=== PATIENT | female | born 1940 | race Caucasian/White ===

== ENCOUNTER → 2016-09-06 | Outpatient (CLI) | payer MEDICARE, OTHER ==
[~2016-09-06] MED LIST: /CIPR75TA OR; ALLO100T OR; ASPI81TA83 OR; ATEN50TA2 OR; FLAG500T OR; GASTROGRAFIN SOLUTION 30ML (Q9963) As Ordered ONE; GLUC500T OR; LISI20TA5 OR; NEUR100C OR; NEXI20CA OR; SIMV20TA2 OR
--- NOTE | 2016-09-06 12:46 | REP ---
CT STUDY OF THE CHEST WITHOUT CONTRAST: HISTORY: Stage IV chronic kidney disease, coronary artery disease status post abdominal aneurysm repair. Found to have a 5.2 cm right upper lobe mass and hilar soft tissue fullness. Comparison is made with chest x-ray from February 17, 2015. CT FINDINGS: There is a small amount of right pleural fluid. There are emphysematous changes bilaterally in the upper lobes and lower lobes. There is no evidence of mass or infiltrate on the left. On the right, the study confirms a large predominantly solid peripheral pleural-based area of pulmonary parenchymal opacification in the right upper lobe anterolaterally. This measures 5.3 x 3.0 x 4.2 cm. There are air bronchograms within it. There is nodular pleural thickening adjacent to the inferior margin of the lesion and there are bullous airspaces posteriorly adjacent to the lesion. Anteriorly in the right upper lobe region there are some subpleural nodules consistent with metastatic foci. These measure 1.6, 2.8, and 1.7 cm. The 1.7 cm lesion may be an internal mammary wei focus as it is along the internal mammary artery and vein. There is also a pleural-based nodule more superiorly measuring 1.6 cm. There is no evidence of skeletal metastatic site. There is another lung mass in the perihilar region of the right upper lobe more centrally. This measures 1.7 cm. It has a bilobed appearance with a somewhat lobulated linear morphology suggesting endobronchial malignancy. There is right hilar fullness consistent with right hilar lymphadenopathy. There is also mediastinal lymphadenopathy with a pretracheal enlarged lymph node measuring 2.7 x 2.8 x 4.0 cm. There are two or three other left mediastinal lymph nodes. No supraclavicular adenopathy or axillary adenopathy is appreciated. No adrenal mass is seen. No hepatic mass lesion is observed. Considerable atrophy of the right kidney is seen. An aortic stent graft is seen at the bottom of the imaging field of view. IMPRESSION: Findings most compatible with regionally advanced bronchogenic malignancy with right upper lobe masses, both peripherally and centrally as well as right hilar and mediastinal lymphadenopathy. There are multiple pleural based masses and several subpleural masses are seen in the right chest as well. Small right effusion. Signed by Adryan Alexis MD 09/06/2016 01:20 P
--- NOTE | 2016-09-06 13:46 | REP ---
CT ABDOMEN AND PELVIS WITHOUT WALL IV BUT WITH ORAL CONTRAST: HISTORY: Right lung mass. The patient gives a history of aortic stent graft repair of abdominal aortic aneurysm. CT FINDINGS: Digital herbarium worker radiograph demonstrates an aortobiiliac stent graft and a normal bowel gas pattern. There is a small quantity of right pleural fluid as described in the chest CT report. No focal liver or spleen lesion is seen. No adrenal mass is observed. No gallbladder or pancreatic abnormality is seen. There is marked renal cortical atrophy affecting the right kidney. There is minimal fullness of the intrarenal collecting system of the left kidney. No renal mass is seen. No intrarenal calculus is seen. There is an aortobiiliac stent graft is seen within a bilobed abdominal aortic aneurysm. The largest portion of the aneurysm measures 4.1 cm. There are left renal artery and superior mesenteric artery stents in place as well. There is a borderline size pericaval lymph node measuring 1.6 x 1.0 cm. There is a right periaortic retrocaval lymph node measuring 0.7 cm in short axis dimension. No other evidence of adenopathy is seen. No uterine or adnexal pathology is observed. There is left colonic diverticulosis. These no abdominal wall defect is seen. No bony destructive lesion is observed. IMPRESSION: Small right pleural effusion. Equivocal pericaval lymph node in the upper abdomen. Marked right renal atrophy. Aortobiiliac stent graft for abdominal aortic aneurysm. Left colonic diverticulosis. Signed by Adryan Alexis MD 09/06/2016 02:07 P
== END ==
LOC: M RAD 09:40
PROVIDERS: ATTEND Internal Medicine
DX: R91.8 Other nonspecific abnormal finding of lung field (principal)
CPT/HCPCS: 71250; 74176; Q9963

== ENCOUNTER → 2016-09-26 | Outpatient (CLI) | payer MEDICARE, OTHER ==
[~2016-09-26] MED LIST changes: +ACETAMINOPHEN 325 MG TAB As Ordered ONE; +ASPI1TAB PO; +ATEN25TA PO; +ATOR40TA PO; +CARV3.12 PO; +GABA-279 PO; -GASTROGRAFIN SOLUTION 30ML (Q9963) As Ordered ONE; +HYDR-4266 PO; +HYDR25TAB PO; +LIDO5TD TOP; +LIDOCAINE 1% MDV 20ML VIAL As Ordered ONE; +NEXI20CA PO; +TRAM50TA2 PO; +VITMTA PO
--- NOTE | 2016-09-26 13:15 | REP ---
POSTBIOPSY CHEST: Single view of the chest is performed status post right lung biopsy. There is no pneumothorax. Pleural and parenchymal opacities persist in the right hemithorax. IMPRESSION: No pneumothorax status post right lung biopsy. Signed by Sony Tong MD 09/26/2016 02:20 P
--- NOTE | 2016-09-26 17:27 | REP ---
CT GUIDED RIGHT UPPER LOBE LUNG BIOPSY: The procedure was performed under the direct supervision of Dr. Tong. The patient has a history of multiple pleural based masses and several subpleural masses seen in the right chest seen on a previous CAT scan performed on 09/06/2016. The risks and benefits of the procedure were explained to the patient and informed consent was obtained. The largest mass in the right upper lobe was localized using CT guidance. The skin was prepped and draped in a sterile fashion. 1% Xylocaine was used as a local anesthetic. Using CT guidance a 19/20-gauge coaxial needle biopsy system was inserted and advanced into the lesion. 4 core biopsy samples were obtained and sent to the lab. The patient tolerated the procedure well and there were no immediate complications. After the appropriate amount of monitored convalescence the patient was discharged from the department. Reviewed by ROGERS Arroyo 09/27/2016 12:50 PEdited and Signed by Sony Tong MD 09/27/2016 03:28 P
== END | disposition home or self-care (01) ==
LOC: M RADPRO 09:10
PROVIDERS: ATTEND Internal Medicine Pulmonary Disease
DX: C34.11 Malignant neoplasm of upper lobe, right bronchus or lung (principal); Z79.899 Other long term (current) drug therapy; Z79.82 Long term (current) use of aspirin; Z87.891 Personal history of nicotine dependence

== ENCOUNTER 2016-09-30 09:03 | Observation (INO) | payer MEDICARE, OTHER ==
[~2016-09-30] VITALS: Ht 157.5 cm; Wt 58.0 kg
[~2016-09-30 09:03] MED LIST changes: -ACETAMINOPHEN 325 MG TAB As Ordered ONE; -ASPI1TAB PO; -ATEN25TA PO; -ATOR40TA PO; -CARV3.12 PO; -GABA-279 PO; -HYDR-4266 PO; -HYDR25TAB PO; -LIDO5TD TOP; -LIDOCAINE 1% MDV 20ML VIAL As Ordered ONE; -NEXI20CA PO; -TRAM50TA2 PO; -VITMTA PO
[2016-09-30] MEDS ORDERED: MORPHINE 2 MG/ML 1ML SYRINGE As Ordered ONE (09:40)
[2016-09-30] MEDS ORDERED: ONDANSETRON 4MG/2ML VIAL (J2405) As Ordered ONE ×2 (09:40→14:23)
[2016-09-30 09:45] LABS: BASO % 0.2 % (0.0-1.0); EOS % 0.4 % (0.0-3.0); LARGE UNSTAINED CELL # 0.1 K/mm3 (0.0-0.4); LARGE UNSTAINED CELL % 0.7 % (0.0-4.0); LYMPH # 0.3 K/mm3 (1.5-4.5); LYMPH % 3.6 % (24.0-44.0); MEAN CORPUSCULAR HEMOGLOBIN 30.1 pg (27.0-33.0); MEAN CORPUSCULAR HGB CONC 33.8 g/dl (32.0-36.5); MEAN CORPUSCULAR VOLUME 88.9 fl (80.0-96.0); MONO # 0.3 K/mm3 (0.0-0.8); MONO % 2.7 % (0.0-5.0); NEUTROPHILS # 8.6 K/mm3 (1.8-7.7); NEUTROPHILS % 92.3 % (36.0-66.0); PLATELET COUNT, AUTOMATED 200 k/mm3 (150-450); RED CELL DISTRIBUTION WIDTH 13.8 % (11.5-14.5); WHITE BLOOD COUNT 9.3 K/mm3 (4.0-10.0)
[2016-09-30 10:06] LABS: ALBUMIN/GLOBULIN RATIO 1.08 (1.00-1.93); BILIRUBIN,DIRECT 0.2 MG/DL (0.0-0.2); CALCIUM LEVEL 9.6 MG/DL (8.8-10.2); CREATININE FOR GFR 1.62 MG/DL (0.55-1.02); GLOMERULAR FILTRATION RATE 32.7 (>39); POTASSIUM SERUM 3.8 MEQ/L (3.5-5.1); TOTAL PROTEIN 7.7 GM/DL (6.4-8.2)
--- NOTE | 2016-09-30 10:18 | REP ---
CHEST, ONE VIEW: HISTORY: Chest pain. COMPARISON: 09/26/2016. A pleural based parenchymal density is present in the right upper lobe, unchanged compared to the previous study. A parenchymal density is present in the right hilar region, unchanged compared to the previous study. A diffuse increase in interstitial markings is present in the lungs consistent with chronic interstitial fibrosis. The heart is normal in size. The pulmonary vasculature is normal in appearance. IMPRESSION: There has been no change in size of the pleural and parenchymal densities in the right lung compared to the previous study. Signed by Aguila Byrd MD 09/30/2016 10:20 A
--- NOTE | 2016-09-30 15:12 | EDDOCDS ---
Nurse's Notes [facility] Name: Flory Womack Age: 76 yrs Sex: Female : 1940 Arrival Date: 09/30/2016 Time: 09:03 Bed 10 Private MD: Mirta Horner Diagnosis: Nausea and vomiting Presentation: 09/30 09:06 Presenting complaint: EMS states: not sleeping well last night, nauseated. hx of lung pml tumor and reports back pain. 09:11 Acute neurological deficits are not present. Mechanism of Injury: No Mechanism of pml Injury. Adult Sepsis Screening: The patient does not have new or worsening altered mentation. Patient's respiratory rate is less than 22. Systolic blood pressure is greater than 100. Patient has a qSOFA score of 0- Negative Sepsis Screen. Suicide/Homicide risk assessment- the patient denies having any suicidal and/or homicidal ideations and does not present with any other emotional, behavioral or mental health complaints. 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 Transition of care: patient was not received from another setting of care. 09:11 Acuity: RANJEET Level 3 pml 09:11 Method Of Arrival: Ambulance pml 09:17 Presenting complaint: Patient states: back pain and dry heaving all night. pml Triage Assessment: 09:25 General: Appears in no apparent distress, Behavior is appropriate for age, cooperative. pml Pain: Location: right scapular area and right subscapular area Pain currently is 6 out of 10 on a pain scale. The patient is triaged at the bedside. See Assessment in Nurses Notes section of ED record. Neurological: Level of Consciousness is awake, alert, Oriented to person, place, time. Cardiovascular: Capillary refill < 3 seconds. Respiratory: Airway is patent Respiratory effort is even, unlabored. Respiratory: Breath sounds are diminished in right upper lobe, left upper lobe and right middle lobe. GI: Abdomen is non- distended. Derm: Skin is pink, warm & dry. Musculoskeletal: Circulation, motion, and sensation intact Capillary refill < 3 seconds. Historical: - Allergies: no known allergies; - Home Meds: 1. Atenolol 12.5mg Oral 2 times per day 2. Nexium 20 mg Oral cpDR 1 cap once daily 3. Lipitor 40 mg Oral tab 1 tab once daily 4. aspirin 81 mg Oral TbEC 1 tab once daily 5. gabapentin 100 mg Oral tab 100 mg daily 6. multivitamin Oral cap 1 tablet daily 7. hydrochlorothiazide 25 mg Oral tab 1 tab once daily 8. hydralazine 10 mg Oral tab 1 tab 2 times per day 9. carvedilol 6.25 mg oral tab nightly - PMHx: Hypertension; GERD; High Cholesterol; right lung mass; Aneurysm, Abdominal; right kidney non functional; - Social history: Smoking status: Patient states former smoker of tobacco. No barriers to communication noted, The patient speaks fluent Macedonian, Speaks appropriately for age. - Family history: Not pertinent. - : The pt / caregiver states he / she is not on anticoagulants. Home medication list is obtained from the patient. - Exposure Risk Screening:: None identified. Screenin: Screening information is obtained from the patient. Fall risk: No risks identified. pml Assistance ADL's: requires no assistance with activities of daily living. Abuse/DV Screen: The patient / caregiver reports he/she is: not in a situation that causes fear, pain or injury. Nutritional screening: No deficits noted. Advance Directives: Currently, there is no health care proxy. home support is adequate. Assessment: : General: see triage note. pml 10:12 General: Appears in no apparent distress, Behavior is appropriate for age, cooperative. pml Pain: Location: right subscapular area and right scapular area Pain currently is 6 out of 10 on a pain scale. Neurological: Level of Consciousness is awake, alert, Oriented to person, place, time. Cardiovascular: Capillary refill < 3 seconds. Respiratory: Airway is patent Respiratory effort is even, unlabored. GI: Abdomen is non- distended. Derm: Skin is pink, warm & dry. 11:23 General: resting on stretcher, eyes closed, appears asleep, resps easy and unlabored, pml skin p/w/d. sinus rhythm on monitor . 12:32 General: Pt ambulatory in hallway to bathroom. . pml 12:46 General: Appears in no apparent distress, Behavior is appropriate for age, cooperative. pml General: Per MD Castro pt may take own tramdol as prescribed. Pain: Location: left low back. Neurological: Level of Consciousness is awake, alert, Oriented to person, place, time. Cardiovascular: Capillary refill < 3 seconds. Respiratory: Airway is patent Respiratory effort is even, unlabored. Derm: Skin is pink, warm & dry. 13:48 General: resting quietly on stretcher, family at bedside. resps easy and unlabored, pml skin p/w/d. sinus rhythm on monitor without ectopy. 15:08 General: Appears in no apparent distress, Behavior is appropriate for age, cooperative. pml Pain: Location: left low back and right subscapular area and right scapular area Pain currently is 1 out of 10 on a pain scale. Neurological: Level of Consciousness is awake, alert, Oriented to person, place, time. Cardiovascular: Capillary refill < 3 seconds. Respiratory: Airway is patent Respiratory effort is even, unlabored. GI: Abdomen is non- distended. Derm: Skin is pink, warm & dry. Vital Signs: 09:16 BP 137 / 65; Pulse 97; Resp 18; Temp 97.3(O); Pulse Ox 94% on R/A; Weight 54.43 kg (R); ct3 Height 5 ft. 2 in. (157.48 cm) (R); Pain 5/10; 09:27 Pulse 96 MON; Pulse Ox 93% ; pml 09:27 BP 133 / 66 (auto/); pml 09:42 Pulse 96 MON; Pulse Ox 93% ; pml 09:42 BP 136 / 63 (auto/); pml 09:57 Pulse 92 MON; Pulse Ox 95% ; pml 09:57 BP 129 / 59 (auto/); pml 10:12 Pulse 92 MON; Pulse Ox 89% ; pml 10:12 BP 138 / 64 (auto/); pml 10:27 Pulse 90 MON; Pulse Ox 92% ; pml 10:27 BP 136 / 71 (auto/); pml 10:42 Pulse 88 MON; Pulse Ox 92% ; pml 10:42 BP 128 / 58 (auto/); pml 10:57 Pulse 88 MON; Pulse Ox 91% ; pml 10:57 BP 126 / 60 (auto/); pml 11:12 Pulse 82 MON; Pulse Ox 90% ; pml 11:12 BP 131 / 63 (auto/); pml 11:27 BP 127 / 55 (auto/); pml 11:27 Pulse 84 MON; Pulse Ox 89% ; pml 11:42 BP 117 / 56 (auto/); pml 11:55 Pulse 84 MON; Pulse Ox 89% ; pml 11:57 BP 122 / 63 (auto/); pml 12:09 Pulse 84 MON; Pulse Ox 90% ; pml 12:12 BP 117 / 66 (auto/); pml 12:27 BP 135 / 69 (auto/); pml 12:27 Pulse 84 MON; Pulse Ox 90% ; pml 12:42 Pulse 90 MON; Pulse Ox 91% ; pml 12:42 BP 137 / 63 (auto/); pml 12:57 Pulse 84 MON; Pulse Ox 90% ; pml 12:57 BP 124 / 59 (auto/); pml 13:12 Pulse 82 MON; Pulse Ox 90% ; pml 13:12 BP 124 / 64 (auto/); pml 13:27 Pulse 80 MON; Pulse Ox 90% ; pml 13:27 BP 121 / 56 (auto/); pml 13:41 Pulse 80 MON; Pulse Ox 91% ; pml 13:42 BP 133 / 60 (auto/); pml 13:57 Pulse 80 MON; pml 13:57 BP 130 / 60 (auto/); pml 14:12 Pulse 82 MON; pml 14:12 BP 124 / 55 (auto/); pml 14:21 Pulse 84 MON; pml 14:22 BP 120 / 58 (auto/); pml 14:24 BP 120 / 58; Pulse 83; Resp 18; Temp 98.3(TE); Pulse Ox 94% on R/A; Pain 2/10; ct3 14:27 Pulse 84 MON; Pulse Ox 90% ; pml 14:27 BP 144 / 65 (auto/); pml 14:42 Pulse 76 MON; Pulse Ox 86% ; pml 14:42 BP 137 / 67 (auto/); pml 14:57 Pulse 78 MON; Pulse Ox 88% ; pml 14:57 BP 132 / 69 (auto/); pml 15:09 BP 114 / 58; Pulse 78; Resp 18; Temp 98.3; Pulse Ox 97% on R/A; Pain 1/10; pml 09:16 Body Mass Index 21.95 (54.43 kg, 157.48 cm) ct3 Vitals: 09:16 Log In Time N/A - ambulance arrival. ct3 ED Course: 09:04 Patient visited by Carlita Villegas, Divisional Human Resources Director. lbd 09:04 Mirta Horner is Private Physician. lbd 09:04 Patient moved to Waiting lbd 09:05 Priyanka Akers,PACO is Primary Nurse. lbd 09:05 Patient moved to 10 lbd 09:06 Laya Mireles RN is Primary Nurse. pml 09:10 Reny Castro MD is Attending Physician. fg 09:10 Patient visited by Reny Castro MD. fg 09:14 Triage Initiated pml 09:16 Patient has correct armband on for positive identification. Placed in gown. Bed in low ct3 position. Call light in reach. Side rails up X2. shelter monitor on. Pulse ox on. NIBP on. 09:17 Patient visited by Brianna Oconnell PCA. ct3 09:26 The patient / caregiver is instructed regarding the plan of care and ED course. pml 09:27 Patient visited by Laya Mireles RN. pml 09:44 Inserted peripheral IV: 20gauge IV in right antecubital area and blood collected. pml Patient tolerated the procedure well. 10:14 Patient visited by Laya Mireles RN. pml 10:20 [facility] Payment Agreement was scanned into [employer] and attached to record. lg 10:27 Chest, 1 View Returned. EDMS 11:02 Patient visited by Brianna Oconnell PCA. ct3 11:24 Patient visited by Laya Mireles RN. pml 12:03 Patient visited by Brianna Oconnell PCA. ct3 12:32 Patient visited by Laya Mireles RN. pml 12:42 Patient visited by Brianna Oconnell PCA. ct3 12:42 Assisted to bedside commode. ct3 12:47 Patient visited by Laya Mireles RN. pml 13:49 Patient visited by Laya Mireles RN. pml 14:24 Patient visited by Brianna Oconnell PCA. ct3 14:54 EKG done. (by ED staff). Reviewed by Reny Castro MD. ct3 15:02 Mirta Horner is Referral Physician. fg 15:02 Matt Raya is Referral Physician. fg 15:09 Discontinued lock intact, bleeding controlled, pressure dressing applied, No pml redness/swelling at site. No procedures done that require assistance. Administered Medications: :44 Drug: NS 0.9% 500 ml [sodium chloride 0.9 % injection solution] Route: IV; Rate: bolus; pml Site: right antecubital; 10:25 Follow up: IV Status: Completed infusion; IV Intake: 500ml pml 09:44 Drug: Ondansetron 4 mg [ondansetron HCl 2 mg/mL intravenous solution (2 mL)] Route: pml IVP; Site: right antecubital; 09:44 Drug: morphine 2 mg [morphine 2 mg/mL intravenous cartridge (1 mL)] Route: IVP; Site: pml right antecubital; 10:14 Follow up: Response: No significant change. pml 14:22 Drug: Ondansetron 4 mg [ondansetron HCl 2 mg/mL intravenous solution (2 mL)] Route: dy IVP; Site: right antecubital; Intake: 10:25 IV: 500.00ml; Total: 500.00ml. pml Order Results: Lab Order: Basic Metabolic Profile; SPECM 09/30/16 09:36 Test: GLUCOSE, FASTING; Value: 146; Range: 83-110; Abnormal: Above high normal; Units: MG/DL; Status: F Test: BLOOD UREA NITROGEN; Value: 31; Range: 7-18; Abnormal: Above high normal; Units: MG/DL; Status: F Test: CREATININE FOR GFR; Value: 1.62; Range: 0.55-1.02; Abnormal: Above high normal; Units: MG/DL; Status: F Test: GLOMERULAR FILTRATION RATE; Value: 32.7; Range: >39; Abnormal: Below low normal; Status: F Test: SODIUM LEVEL; Value: 139; Range: 136-145; Units: MEQ/L; Status: F Test: POTASSIUM SERUM; Value: 3.8; Range: 3.5-5.1; Units: MEQ/L; Status: F Test: CHLORIDE LEVEL; Value: 97; Range: 98-107; Abnormal: Below low normal; Units: MEQ/L; Status: F Test: CARBON DIOXIDE LEVEL; Value: 26; Range: 21-32; Units: MEQ/L; Status: F Test: ANION GAP; Value: 16; Range: 8-16; Units: MEQ/L; Status: F Test: CALCIUM LEVEL; Value: 9.6; Range: 8.8-10.2; Units: MG/DL; Status: F Test Note: ; Units are mL/min/1.73 m2 Chronic Kidney Disease Staging per NKF: Stage I & II GFR >=60 Normal to Mildly Decreased Stage III GFR 30-59 Moderately Decreased Stage IV GFR 15-29 Severely Decreased Stage V GFR <15 Very Little GFR Left ESRD GFR <15 on PRESTIDIGITATOR Lab Order: CBC with Diff; SPEC'M 09/30/16 09:36 Test: WHITE BLOOD COUNT; Value: 9.3; Range: 4.0-10.0; Units: K/mm3; Status: F Test: RED BLOOD COUNT; Value: 4.64; Range: 4.00-5.40; Units: M/mm3; Status: F Test: HEMOGLOBIN; Value: 13.9; Range: 12.0-16.0; Units: g/dl; Status: F Test: HEMATOCRIT; Value: 41.2; Range: 36.0-47.0; Units: %; Status: F Test: MEAN CORPUSCULAR VOLUME; Value: 88.9; Range: 80.0-96.0; Units: fl; Status: F Test: MEAN CORPUSCULAR HEMOGLOBIN; Value: 30.1; Range: 27.0-33.0; Units: pg; Status: F Test: MEAN CORPUSCULAR HGB CONC; Value: 33.8; Range: 32.0-36.5; Units: g/dl; Status: F Test: RED CELL DISTRIBUTION WIDTH; Value: 13.8; Range: 11.5-14.5; Units: %; Status: F Test: PLATELET COUNT, AUTOMATED; Value: 200; Range: 150-450; Units: k/mm3; Status: F Test: NEUTROPHILS %; Value: 92.3; Range: 36.0-66.0; Abnormal: Above high normal; Units: %; Status: F Test: LYMPH %; Value: 3.6; Range: 24.0-44.0; Abnormal: Below low normal; Units: %; Status: F Test: MONO %; Value: 2.7; Range: 0.0-5.0; Units: %; Status: F Test: EOS %; Value: 0.4; Range: 0.0-3.0; Units: %; Status: F Test: BASO %; Value: 0.2; Range: 0.0-1.0; Units: %; Status: F Test: LARGE UNSTAINED CELL %; Value: 0.7; Range: 0.0-4.0; Units: %; Status: F Test: NEUTROPHILS #; Value: 8.6; Range: 1.8-7.7; Abnormal: Above high normal; Units: K/mm3; Status: F Test: LYMPH #; Value: 0.3; Range: 1.5-4.5; Abnormal: Below low normal; Units: K/mm3; Status: F Test: MONO #; Value: 0.3; Range: 0.0-0.8; Units: K/mm3; Status: F Test: EOS #; Value: 0.0; Range: 0.0-0.50; Units: K/mm3; Status: F Test: BASO #; Value: 0.0; Range: 0.0-0.2; Units: K/mm3; Status: F Test: LARGE UNSTAINED CELL #; Value: 0.1; Range: 0.0-0.4; Units: K/mm3; Status: F Lab Order: Liver Profile; SPEC'M 09/30/16 09:36 Test: AST/SGOT; Value: 41; Range: 15-37; Abnormal: Above high normal; Units: U/L; Status: F Test: ALT/SGPT; Value: 19; Range: 12-78; Units: U/L; Status: F Test: ALKALINE PHOSPHATASE; Value: 60; Range: 45-117; Units: U/L; Status: F Test: BILIRUBIN,TOTAL; Value: 1.0; Range: 0.2-1.0; Units: MG/DL; Status: F Test: BILIRUBIN,DIRECT; Value: 0.2; Range: 0.0-0.2; Units: MG/DL; Status: F Test: TOTAL PROTEIN; Value: 7.7; Range: 6.4-8.2; Units: GM/DL; Status: F Test: ALBUMIN; Value: 4.0; Range: 3.2-5.2; Units: GM/DL; Status: F Test: ALBUMIN/GLOBULIN RATIO; Value: 1.08; Range: 1.00-1.93; Status: F Radiology Order: Chest, 1 View Test: Chest, 1 View REASON FOR EXAMINATION: Chest Pain; CHEST, ONE VIEW:; ; HISTORY: Chest pain.; ; COMPARISON: 09/26/2016.; ; A pleural based parenchymal density is present in the right upper lobe, unchanged; compared to the previous study. A parenchymal density is present in the right; hilar region, unchanged compared to the previous study. A diffuse increase in; interstitial markings is present in the lungs consistent with chronic; interstitial fibrosis. The heart is normal in size. The pulmonary vasculature; is normal in appearance.; ; IMPRESSION:; ; There has been no change in size of the pleural and parenchymal densities in the; right lung compared to the previous study.; ; ; Signed by; Aguila Byrd MD 09/30/2016 10:20 A; Outcome: 15:02 Discharge ordered by Provider. fg 15:09 Discharge Assessment: Patient awake, alert and oriented x 3. No cognitive and/or pml functional deficits noted. Patient verbalized understanding of disposition instructions. patient administered narcotics - yes. Pt provided with safe discharge. The following High Risk Discharge criteria are identified: None. Discharged to home ambulatory, with family. Condition: good Condition: stable. Discharge instructions given to patient, Instructed on discharge instructions, follow up and referral plans. medication usage, Demonstrated understanding of instructions, Pt was receptive of discharge instructions/ teaching. Prescriptions given X 1. No special radiology studies were completed. Property sent home with patient. 15:11 Patient left the ED. pml Signatures: Dispatcher [employer] EDMS Carlita Villegas, Divisional Human Resources Director Unit lbd Gustavo Garner, Matt Good lg, RN Brianna Chicas, SUPERVISOR ASSEMBLY STOCK SUPERVISOR ASSEMBLY STOCK ct3 Laya Mireles RN RN pml Gill, Frances, MD MD fg MTDD
--- NOTE | 2016-09-30 15:12 | EDDOCDS ---
Physician Documentation [facility] Name: Flory Womack Age: 76 yrs Sex: Female : 1940 Arrival Date: 09/30/2016 Time: 09:03 Bed 10 Private MD: Mirta Horner Disposition: 09/30/16 15:02 Discharged to Home/Self Care. Impression: Nausea and vomiting. - Condition is Stable. - Discharge Instructions: Nausea and Vomiting, [id number]. - Prescriptions for ZOFRAN ODT 4 mg Oral - dissolve 1 tablet by ORAL route 3 times per day As needed do not chew, do not swallow whole; 10 tablet. - Medication Reconciliation, Local Pharmacy Hours form. - Follow up: Mirta Horner; When: Call to arrange an appointment; Reason: Continuance of care. Follow up: Matt Raya; When: Call to arrange an appointment; Reason: Continuance of care. - Problem is new. - Symptoms have improved. Historical: - Allergies: no known allergies; - Home Meds: 1. Atenolol 12.5mg Oral 2 times per day 2. Nexium 20 mg Oral cpDR 1 cap once daily 3. Lipitor 40 mg Oral tab 1 tab once daily 4. aspirin 81 mg Oral TbEC 1 tab once daily 5. gabapentin 100 mg Oral tab 100 mg daily 6. multivitamin Oral cap 1 tablet daily 7. hydrochlorothiazide 25 mg Oral tab 1 tab once daily 8. hydralazine 10 mg Oral tab 1 tab 2 times per day 9. carvedilol 6.25 mg oral tab nightly - PMHx: Hypertension; GERD; High Cholesterol; right lung mass; Aneurysm, Abdominal; right kidney non functional; - Social history: Smoking status: Patient states former smoker of tobacco. No barriers to communication noted, The patient speaks fluent Congolese, Speaks appropriately for age. - Family history: Not pertinent. - : The pt / caregiver states he / she is not on anticoagulants. Home medication list is obtained from the patient. - Exposure Risk Screening:: None identified. Vital Signs: 09/30 09:16 BP 137 / 65; Pulse 97; Resp 18; Temp 97.3(O); Pulse Ox 94% on R/A; Weight 54.43 kg / ct3 120 lbs (R); Height 5 ft. 2 in. (157.48 cm) (R); Pain 5/10; 09:27 Pulse 96 MON; Pulse Ox 93% ; pml 09:27 BP 133 / 66 (auto/); pml 09:42 Pulse 96 MON; Pulse Ox 93% ; pml 09:42 BP 136 / 63 (auto/); pml 09:57 Pulse 92 MON; Pulse Ox 95% ; pml 09:57 BP 129 / 59 (auto/); pml 10:12 Pulse 92 MON; Pulse Ox 89% ; pml 10:12 BP 138 / 64 (auto/); pml 10:27 Pulse 90 MON; Pulse Ox 92% ; pml 10:27 BP 136 / 71 (auto/); pml 10:42 Pulse 88 MON; Pulse Ox 92% ; pml 10:42 BP 128 / 58 (auto/); pml 10:57 Pulse 88 MON; Pulse Ox 91% ; pml 10:57 BP 126 / 60 (auto/); pml 11:12 Pulse 82 MON; Pulse Ox 90% ; pml 11:12 BP 131 / 63 (auto/); pml 11:27 BP 127 / 55 (auto/); pml 11:27 Pulse 84 MON; Pulse Ox 89% ; pml 11:42 BP 117 / 56 (auto/); pml 11:55 Pulse 84 MON; Pulse Ox 89% ; pml 11:57 BP 122 / 63 (auto/); pml 12:09 Pulse 84 MON; Pulse Ox 90% ; pml 12:12 BP 117 / 66 (auto/); pml 12:27 BP 135 / 69 (auto/); pml 12:27 Pulse 84 MON; Pulse Ox 90% ; pml 12:42 Pulse 90 MON; Pulse Ox 91% ; pml 12:42 BP 137 / 63 (auto/); pml 12:57 Pulse 84 MON; Pulse Ox 90% ; pml 12:57 BP 124 / 59 (auto/); pml 13:12 Pulse 82 MON; Pulse Ox 90% ; pml 13:12 BP 124 / 64 (auto/); pml 13:27 Pulse 80 MON; Pulse Ox 90% ; pml 13:27 BP 121 / 56 (auto/); pml 13:41 Pulse 80 MON; Pulse Ox 91% ; pml 13:42 BP 133 / 60 (auto/); pml 13:57 Pulse 80 MON; pml 13:57 BP 130 / 60 (auto/); pml 14:12 Pulse 82 MON; pml 14:12 BP 124 / 55 (auto/); pml 14:21 Pulse 84 MON; pml 14:22 BP 120 / 58 (auto/); pml 14:24 BP 120 / 58; Pulse 83; Resp 18; Temp 98.3(TE); Pulse Ox 94% on R/A; Pain 2/10; ct3 14:27 Pulse 84 MON; Pulse Ox 90% ; pml 14:27 BP 144 / 65 (auto/); pml 14:42 Pulse 76 MON; Pulse Ox 86% ; pml 14:42 BP 137 / 67 (auto/); pml 14:57 Pulse 78 MON; Pulse Ox 88% ; pml 14:57 BP 132 / 69 (auto/); pml 15:09 BP 114 / 58; Pulse 78; Resp 18; Temp 98.3; Pulse Ox 97% on R/A; Pain 1/10; pml 09:16 Body Mass Index 21.95 (54.43 kg, 157.48 cm) ct3 MDM: 09:31 IV Saline Lock ordered. fg 09:31 NS 0.9% 500 ml IV at bolus once ordered. fg 09:31 Undress patient appropriately for examination ordered. fg 09:31 Ondansetron 4 mg IVP once ordered. fg 09:31 morphine 2 mg IVP once ordered. fg 09:32 Basic Metabolic Profile Ordered. EDMS 09:32 CBC with Diff Ordered. EDMS 09:32 Liver Profile Ordered. EDMS 09:33 NOTHING BY MOUTH+DIET ordered. EDMS 09:49 Chest, 1 View Ordered. EDMS 09:53 Financial registration complete. lg 10:20 [facility] [place] was [place] into [employer] and attached to record. lg 14:12 Vital Signs ordered. fg 14:12 Ondansetron 4 mg IVP once ordered. fg 14:13 ECG WITH READING ER PHYS+CARDIAG ordered. EDMS 14:14 Urinalysis Ordered. EDMS 14:14 Urine Culture Ordered. EDMS Administered Medications: 09:44 Drug: NS 0.9% 500 ml [sodium chloride 0.9 % injection solution] Route: IV; Rate: bolus; pml Site: right antecubital; 10:25 Follow up: IV Status: Completed infusion; IV Intake: 500ml pml 09:44 Drug: Ondansetron 4 mg [ondansetron HCl 2 mg/mL intravenous solution (2 mL)] Route: pml IVP; Site: right antecubital; 09:44 Drug: morphine 2 mg [morphine 2 mg/mL intravenous cartridge (1 mL)] Route: IVP; Site: pml right antecubital; 10:14 Follow up: Response: No significant change. pml 14:22 Drug: Ondansetron 4 mg [ondansetron HCl 2 mg/mL intravenous solution (2 mL)] Route: dy IVP; Site: right antecubital; Signatures: Dispatcher [employer] EDGustavo Navarro, Jame Reg lg Laya Mireles RN RN pml Reny Castro MD MD fg Youngs, David RN dy The chart was reviewed and I authenticate all verbal orders and agree with the evaluation and treatment provided.Attachments: 10:20 [facility] Payment Agreement lg MTDD
[2016-09-30] MEDS ORDERED: ACETAMINOPHEN TAB 650MG DOSE (2X325MG) PO PRN (16:00)
--- NOTE | 2016-09-30 16:16 | EDDOCDS ---
Nurse's Notes [facility] Name: Flory Womack Age: 76 yrs Sex: Female : 1940 Arrival Date: 09/30/2016 Time: 09:03 Bed 10 Private MD: Mirta Horner Diagnosis: Nausea and vomiting Presentation: 09/30 09:06 Presenting complaint: EMS states: not sleeping well last night, nauseated. hx of lung pml tumor and reports back pain. 09:11 Acute neurological deficits are not present. Mechanism of Injury: No Mechanism of pml Injury. Adult Sepsis Screening: The patient does not have new or worsening altered mentation. Patient's respiratory rate is less than 22. Systolic blood pressure is greater than 100. Patient has a qSOFA score of 0- Negative Sepsis Screen. Suicide/Homicide risk assessment- the patient denies having any suicidal and/or homicidal ideations and does not present with any other emotional, behavioral or mental health complaints. Status: Patient is not a support services specialist or dependent. Transition of care: patient was not received from another setting of care. 09:11 Acuity: RANJEET Level 3 pml 09:11 Method Of Arrival: Ambulance pml 09:17 Presenting complaint: Patient states: back pain and dry heaving all night. pml Triage Assessment: 09:25 General: Appears in no apparent distress, Behavior is appropriate for age, cooperative. pml Pain: Location: right scapular area and right subscapular area Pain currently is 6 out of 10 on a pain scale. The patient is triaged at the bedside. See Assessment in Nurses Notes section of ED record. Neurological: Level of Consciousness is awake, alert, Oriented to person, place, time. Cardiovascular: Capillary refill < 3 seconds. Respiratory: Airway is patent Respiratory effort is even, unlabored. Respiratory: Breath sounds are diminished in right upper lobe, left upper lobe and right middle lobe. GI: Abdomen is non- distended. Derm: Skin is pink, warm & dry. Musculoskeletal: Circulation, motion, and sensation intact Capillary refill < 3 seconds. Historical: - Allergies: no known allergies; - Home Meds: 1. Atenolol 12.5mg Oral 2 times per day 2. Nexium 20 mg Oral cpDR 1 cap once daily 3. Lipitor 40 mg Oral tab 1 tab once daily 4. aspirin 81 mg Oral TbEC 1 tab once daily 5. gabapentin 100 mg Oral tab 100 mg daily 6. multivitamin Oral cap 1 tablet daily 7. hydrochlorothiazide 25 mg Oral tab 1 tab once daily 8. hydralazine 10 mg Oral tab 1 tab 2 times per day 9. carvedilol 6.25 mg oral tab nightly - PMHx: Hypertension; GERD; High Cholesterol; right lung mass; Aneurysm, Abdominal; right kidney non functional; - Social history: Smoking status: Patient states former smoker of tobacco. No barriers to communication noted, The patient speaks fluent Serbian, Speaks appropriately for age. - Family history: Not pertinent. - : The pt / caregiver states he / she is not on anticoagulants. Home medication list is obtained from the patient. - Exposure Risk Screening:: None identified. Screenin: Screening information is obtained from the patient. Fall risk: No risks identified. pml Assistance ADL's: requires no assistance with activities of daily living. Abuse/DV Screen: The patient / caregiver reports he/she is: not in a situation that causes fear, pain or injury. Nutritional screening: No deficits noted. Advance Directives: Currently, there is no health care proxy. home support is adequate. Assessment: : General: see triage note. pml 10:12 General: Appears in no apparent distress, Behavior is appropriate for age, cooperative. pml Pain: Location: right subscapular area and right scapular area Pain currently is 6 out of 10 on a pain scale. Neurological: Level of Consciousness is awake, alert, Oriented to person, place, time. Cardiovascular: Capillary refill < 3 seconds. Respiratory: Airway is patent Respiratory effort is even, unlabored. GI: Abdomen is non- distended. Derm: Skin is pink, warm & dry. 11:23 General: resting on stretcher, eyes closed, appears asleep, resps easy and unlabored, pml skin p/w/d. sinus rhythm on monitor . 12:32 General: Pt ambulatory in hallway to bathroom. . pml 12:46 General: Appears in no apparent distress, Behavior is appropriate for age, cooperative. pml General: Per MD Castro pt may take own tramdol as prescribed. Pain: Location: left low back. Neurological: Level of Consciousness is awake, alert, Oriented to person, place, time. Cardiovascular: Capillary refill < 3 seconds. Respiratory: Airway is patent Respiratory effort is even, unlabored. Derm: Skin is pink, warm & dry. 13:48 General: resting quietly on stretcher, family at bedside. resps easy and unlabored, pml skin p/w/d. sinus rhythm on monitor without ectopy. 15:08 General: Appears in no apparent distress, Behavior is appropriate for age, cooperative. pml Pain: Location: left low back and right subscapular area and right scapular area Pain currently is 1 out of 10 on a pain scale. Neurological: Level of Consciousness is awake, alert, Oriented to person, place, time. Cardiovascular: Capillary refill < 3 seconds. Respiratory: Airway is patent Respiratory effort is even, unlabored. GI: Abdomen is non- distended. Derm: Skin is pink, warm & dry. 15:12 General: following discharge with this film writer pt presented to MD Castro stating she can pml not be discharged. states she is dry heaving again. no emesis has been produced since arrival to department. . 16:13 General: Appears in no apparent distress, Behavior is appropriate for age, cooperative. pml Pain: Location: left low back and right subscapular area and right scapular area Pain currently is 1 out of 10 on a pain scale. Neurological: Level of Consciousness is awake, alert, Oriented to person, place, time. Cardiovascular: Capillary refill < 3 seconds. Respiratory: Airway is patent Respiratory effort is even, unlabored. GI: Reports nausea. Derm: Skin is pink, warm & dry. Vital Signs: 09:16 BP 137 / 65; Pulse 97; Resp 18; Temp 97.3(O); Pulse Ox 94% on R/A; Weight 54.43 kg (R); ct3 Height 5 ft. 2 in. (157.48 cm) (R); Pain 5/10; 09:27 Pulse 96 MON; Pulse Ox 93% ; pml 09:27 BP 133 / 66 (auto/); pml 09:42 Pulse 96 MON; Pulse Ox 93% ; pml 09:42 BP 136 / 63 (auto/); pml 09:57 Pulse 92 MON; Pulse Ox 95% ; pml 09:57 BP 129 / 59 (auto/); pml 10:12 Pulse 92 MON; Pulse Ox 89% ; pml 10:12 BP 138 / 64 (auto/); pml 10:27 Pulse 90 MON; Pulse Ox 92% ; pml 10:27 BP 136 / 71 (auto/); pml 10:42 Pulse 88 MON; Pulse Ox 92% ; pml 10:42 BP 128 / 58 (auto/); pml 10:57 Pulse 88 MON; Pulse Ox 91% ; pml 10:57 BP 126 / 60 (auto/); pml 11:12 Pulse 82 MON; Pulse Ox 90% ; pml 11:12 BP 131 / 63 (auto/); pml 11:27 BP 127 / 55 (auto/); pml 11:27 Pulse 84 MON; Pulse Ox 89% ; pml 11:42 BP 117 / 56 (auto/); pml 11:55 Pulse 84 MON; Pulse Ox 89% ; pml 11:57 BP 122 / 63 (auto/); pml 12:09 Pulse 84 MON; Pulse Ox 90% ; pml 12:12 BP 117 / 66 (auto/); pml 12:27 BP 135 / 69 (auto/); pml 12:27 Pulse 84 MON; Pulse Ox 90% ; pml 12:42 Pulse 90 MON; Pulse Ox 91% ; pml 12:42 BP 137 / 63 (auto/); pml 12:57 Pulse 84 MON; Pulse Ox 90% ; pml 12:57 BP 124 / 59 (auto/); pml 13:12 Pulse 82 MON; Pulse Ox 90% ; pml 13:12 BP 124 / 64 (auto/); pml 13:27 Pulse 80 MON; Pulse Ox 90% ; pml 13:27 BP 121 / 56 (auto/); pml 13:41 Pulse 80 MON; Pulse Ox 91% ; pml 13:42 BP 133 / 60 (auto/); pml 13:57 Pulse 80 MON; pml 13:57 BP 130 / 60 (auto/); pml 14:12 Pulse 82 MON; pml 14:12 BP 124 / 55 (auto/); pml 14:21 Pulse 84 MON; pml 14:22 BP 120 / 58 (auto/); pml 14:24 BP 120 / 58; Pulse 83; Resp 18; Temp 98.3(TE); Pulse Ox 94% on R/A; Pain 2/10; ct3 14:27 Pulse 84 MON; Pulse Ox 90% ; pml 14:27 BP 144 / 65 (auto/); pml 14:42 Pulse 76 MON; Pulse Ox 86% ; pml 14:42 BP 137 / 67 (auto/); pml 14:57 Pulse 78 MON; Pulse Ox 88% ; pml 14:57 BP 132 / 69 (auto/); pml 15:09 BP 114 / 58; Pulse 78; Resp 18; Temp 98.3; Pulse Ox 97% on R/A; Pain 1/10; pml 16:15 BP 136 / 80; Pulse 76; Resp 18; Temp 97.9; Pulse Ox 97% ; Pain 1/10; pml 09:16 Body Mass Index 21.95 (54.43 kg, 157.48 cm) ct3 Vitals: 09:16 Log In Time N/A - ambulance arrival. ct3 ED Course: 09:04 Patient visited by Carlita Villegas, Newspaper Deliverer. lbd 09:04 Mirta Horner is Private Physician. lbd 09:04 Patient moved to Waiting lbd 09:05 Priyanka Akers RN is Primary Nurse. lbd 09:05 Patient moved to 10 lbd 09:06 Laya Mireles,RN is Primary Nurse. pml 09:10 Reny Castro MD is Attending Physician. fg 09:10 Patient visited by Reny Castro MD. fg 09:14 Triage Initiated pml 09:16 Patient has correct armband on for positive identification. Placed in gown. Bed in low ct3 position. Call light in reach. Side rails up X2. youth nutritional monitor on. Pulse ox on. NIBP on. 09:17 Patient visited by Brianna Oconnell PCA. ct3 09:26 The patient / caregiver is instructed regarding the plan of care and ED course. pml 09:27 Patient visited by Laya Mireles RN. pml 09:44 Inserted peripheral IV: 20gauge IV in right antecubital area and blood collected. pml Patient tolerated the procedure well. 10:14 Patient visited by Laya Mireles RN. pml 10:20 [facility] Payment Agreement was scanned into [employer] and attached to record. lg 10:27 Chest, 1 View Returned. EDMS 11:02 Patient visited by Brianna Oconnell PCA. ct3 11:24 Patient visited by Laya Mireles RN. pml 12:03 Patient visited by Brianna Oconenll PCA. ct3 12:32 Patient visited by Laya Mireles RN. pml 12:42 Patient visited by Brianna Oconnell PCA. ct3 12:42 Assisted to bedside commode. ct3 12:47 Patient visited by Laya Mireles RN. pml 13:49 Patient visited by Laya Mireles,PACO. pml 14:24 Patient visited by Brianna Oconnell PCA. ct3 14:54 EKG done. (by ED staff). Reviewed by Reny Castro MD. ct3 15:02 Mirta Horner is Referral Physician. fg 15:02 Matt Raya is Referral Physician. fg 15:09 Discontinued lock intact, bleeding controlled, pressure dressing applied, No pml redness/swelling at site. No procedures done that require assistance. 15:13 Patient visited by Laya Mireles,PACO. pml 15:23 Jeanne Grimes hr administrative assistant. ys2 15:23 Inserted peripheral IV: 20gauge IV in right antecubital area Patient tolerated the pml procedure well. 15:31 Jeanne Grimes is Hospitalizing Provider. fg Administered Medications: 09:44 Drug: NS 0.9% 500 ml [sodium chloride 0.9 % injection solution] Route: IV; Rate: bolus; pml Site: right antecubital; 10:25 Follow up: IV Status: Completed infusion; IV Intake: 500ml pml 09:44 Drug: Ondansetron 4 mg [ondansetron HCl 2 mg/mL intravenous solution (2 mL)] Route: pml IVP; Site: right antecubital; 09:44 Drug: morphine 2 mg [morphine 2 mg/mL intravenous cartridge (1 mL)] Route: IVP; Site: pml right antecubital; 10:14 Follow up: Response: No significant change. pml 14:22 Drug: Ondansetron 4 mg [ondansetron HCl 2 mg/mL intravenous solution (2 mL)] Route: dy IVP; Site: right antecubital; Intake: 10:25 IV: 500.00ml; Total: 500.00ml. pml Order Results: Lab Order: Basic Metabolic Profile; SPEC'M 09/30/16 09:36 Test: GLUCOSE, FASTING; Value: 146; Range: 83-110; Abnormal: Above high normal; Units: MG/DL; Status: F Test: BLOOD UREA NITROGEN; Value: 31; Range: 7-18; Abnormal: Above high normal; Units: MG/DL; Status: F Test: CREATININE FOR GFR; Value: 1.62; Range: 0.55-1.02; Abnormal: Above high normal; Units: MG/DL; Status: F Test: GLOMERULAR FILTRATION RATE; Value: 32.7; Range: >39; Abnormal: Below low normal; Status: F Test: SODIUM LEVEL; Value: 139; Range: 136-145; Units: MEQ/L; Status: F Test: POTASSIUM SERUM; Value: 3.8; Range: 3.5-5.1; Units: MEQ/L; Status: F Test: CHLORIDE LEVEL; Value: 97; Range: 98-107; Abnormal: Below low normal; Units: MEQ/L; Status: F Test: CARBON DIOXIDE LEVEL; Value: 26; Range: 21-32; Units: MEQ/L; Status: F Test: ANION GAP; Value: 16; Range: 8-16; Units: MEQ/L; Status: F Test: CALCIUM LEVEL; Value: 9.6; Range: 8.8-10.2; Units: MG/DL; Status: F Test Note: ; Units are mL/min/1.73 m2 Chronic Kidney Disease Staging per NKF: Stage I & II GFR >=60 Normal to Mildly Decreased Stage III GFR 30-59 Moderately Decreased Stage IV GFR 15-29 Severely Decreased Stage V GFR <15 Very Little GFR Left ESRD GFR <15 on HOME VISITS NURSE Lab Order: CBC with Diff; SPEC'M 09/30/16 09:36 Test: WHITE BLOOD COUNT; Value: 9.3; Range: 4.0-10.0; Units: K/mm3; Status: F Test: RED BLOOD COUNT; Value: 4.64; Range: 4.00-5.40; Units: M/mm3; Status: F Test: HEMOGLOBIN; Value: 13.9; Range: 12.0-16.0; Units: g/dl; Status: F Test: HEMATOCRIT; Value: 41.2; Range: 36.0-47.0; Units: %; Status: F Test: MEAN CORPUSCULAR VOLUME; Value: 88.9; Range: 80.0-96.0; Units: fl; Status: F Test: MEAN CORPUSCULAR HEMOGLOBIN; Value: 30.1; Range: 27.0-33.0; Units: pg; Status: F Test: MEAN CORPUSCULAR HGB CONC; Value: 33.8; Range: 32.0-36.5; Units: g/dl; Status: F Test: RED CELL DISTRIBUTION WIDTH; Value: 13.8; Range: 11.5-14.5; Units: %; Status: F Test: PLATELET COUNT, AUTOMATED; Value: 200; Range: 150-450; Units: k/mm3; Status: F Test: NEUTROPHILS %; Value: 92.3; Range: 36.0-66.0; Abnormal: Above high normal; Units: %; Status: F Test: LYMPH %; Value: 3.6; Range: 24.0-44.0; Abnormal: Below low normal; Units: %; Status: F Test: MONO %; Value: 2.7; Range: 0.0-5.0; Units: %; Status: F Test: EOS %; Value: 0.4; Range: 0.0-3.0; Units: %; Status: F Test: BASO %; Value: 0.2; Range: 0.0-1.0; Units: %; Status: F Test: LARGE UNSTAINED CELL %; Value: 0.7; Range: 0.0-4.0; Units: %; Status: F Test: NEUTROPHILS #; Value: 8.6; Range: 1.8-7.7; Abnormal: Above high normal; Units: K/mm3; Status: F Test: LYMPH #; Value: 0.3; Range: 1.5-4.5; Abnormal: Below low normal; Units: K/mm3; Status: F Test: MONO #; Value: 0.3; Range: 0.0-0.8; Units: K/mm3; Status: F Test: EOS #; Value: 0.0; Range: 0.0-0.50; Units: K/mm3; Status: F Test: BASO #; Value: 0.0; Range: 0.0-0.2; Units: K/mm3; Status: F Test: LARGE UNSTAINED CELL #; Value: 0.1; Range: 0.0-0.4; Units: K/mm3; Status: F Lab Order: Liver Profile; SPEC'M 09/30/16 09:36 Test: AST/SGOT; Value: 41; Range: 15-37; Abnormal: Above high normal; Units: U/L; Status: F Test: ALT/SGPT; Value: 19; Range: 12-78; Units: U/L; Status: F Test: ALKALINE PHOSPHATASE; Value: 60; Range: 45-117; Units: U/L; Status: F Test: BILIRUBIN,TOTAL; Value: 1.0; Range: 0.2-1.0; Units: MG/DL; Status: F Test: BILIRUBIN,DIRECT; Value: 0.2; Range: 0.0-0.2; Units: MG/DL; Status: F Test: TOTAL PROTEIN; Value: 7.7; Range: 6.4-8.2; Units: GM/DL; Status: F Test: ALBUMIN; Value: 4.0; Range: 3.2-5.2; Units: GM/DL; Status: F Test: ALBUMIN/GLOBULIN RATIO; Value: 1.08; Range: 1.00-1.93; Status: F Radiology Order: Chest, 1 View Test: Chest, 1 View REASON FOR EXAMINATION: Chest Pain; CHEST, ONE VIEW:; ; HISTORY: Chest pain.; ; COMPARISON: 09/26/2016.; ; A pleural based parenchymal density is present in the right upper lobe, unchanged; compared to the previous study. A parenchymal density is present in the right; hilar region, unchanged compared to the previous study. A diffuse increase in; interstitial markings is present in the lungs consistent with chronic; interstitial fibrosis. The heart is normal in size. The pulmonary vasculature; is normal in appearance.; ; IMPRESSION:; ; There has been no change in size of the pleural and parenchymal densities in the; right lung compared to the previous study.; ; ; Signed by; Aguila Byrd MD 09/30/2016 10:20 A; Outcome: 15:02 Discharge ordered by Provider. fg 15:09 Discharge Assessment: Patient awake, alert and oriented x 3. No cognitive and/or pml functional deficits noted. Patient verbalized understanding of disposition instructions. patient administered narcotics - yes. Pt provided with safe discharge. The following High Risk Discharge criteria are identified: None. Discharged to home ambulatory, with family. Condition: good Condition: stable. Discharge instructions given to patient, Instructed on discharge instructions, follow up and referral plans. medication usage, Demonstrated understanding of instructions, Pt was receptive of discharge instructions/ teaching. Prescriptions given X 1. No special radiology studies were completed. Property sent home with patient. 15:11 Patient left the ED. pml 15:31 Decision to Hospitalize by Provider. fg 16:15 Discharge Assessment: Patient awake, alert and oriented x 3. No cognitive and/or pml functional deficits noted. Patient verbalized understanding of disposition instructions. The following High Risk Discharge criteria are identified: None. Admitted to Med/Surg accompanied by tech, via stretcher, with chart. Condition: stable. Admission hand-off: Report Faxed Fax receipt verified by [employer]. 16:15 Patient left the ED. pml Signatures: Dispatcher [employer] EDMS Carlita Villegas, Newspaper Deliverer Unit lbd Gustavo Garner, Matt Good lg, RN Brianna Chicas, JAC FITNESS COACH ct3 Laya Mireles RN RN pml Gill, Frances, MD MD Cornelio, Jeanne ys2 ROSA
--- NOTE | 2016-09-30 16:16 | EDDOCDS ---
Physician Documentation [facility] Name: Flory Womack Age: 76 yrs Sex: Female : 1940 Arrival Date: 09/30/2016 Time: 09:03 Bed 10 Private MD: Mirta Horner Disposition: 09/30/16 15:31 Hospitalization ordered by Jeanne Grimes for Inpatient Admission. Preliminary diagnosis is Nausea and vomiting. - Bed requested for 5 Byrnes. - Status is Inpatient Admission. pml - Condition is Stable. - Problem is new. - Symptoms have improved. Historical: - Allergies: no known allergies; - Home Meds: 1. Atenolol 12.5mg Oral 2 times per day 2. Nexium 20 mg Oral cpDR 1 cap once daily 3. Lipitor 40 mg Oral tab 1 tab once daily 4. aspirin 81 mg Oral TbEC 1 tab once daily 5. gabapentin 100 mg Oral tab 100 mg daily 6. multivitamin Oral cap 1 tablet daily 7. hydrochlorothiazide 25 mg Oral tab 1 tab once daily 8. hydralazine 10 mg Oral tab 1 tab 2 times per day 9. carvedilol 6.25 mg oral tab nightly - PMHx: Hypertension; GERD; High Cholesterol; right lung mass; Aneurysm, Abdominal; right kidney non functional; - Social history: Smoking status: Patient states former smoker of tobacco. No barriers to communication noted, The patient speaks fluent Bulgarian, Speaks appropriately for age. - Family history: Not pertinent. - : The pt / caregiver states he / she is not on anticoagulants. Home medication list is obtained from the patient. - Exposure Risk Screening:: None identified. Vital Signs: 09/30 09:16 BP 137 / 65; Pulse 97; Resp 18; Temp 97.3(O); Pulse Ox 94% on R/A; Weight 54.43 kg / ct3 120 lbs (R); Height 5 ft. 2 in. (157.48 cm) (R); Pain 5/10; 09:27 Pulse 96 MON; Pulse Ox 93% ; pml 09:27 BP 133 / 66 (auto/); pml 09:42 Pulse 96 MON; Pulse Ox 93% ; pml 09:42 BP 136 / 63 (auto/); pml 09:57 Pulse 92 MON; Pulse Ox 95% ; pml 09:57 BP 129 / 59 (auto/); pml 10:12 Pulse 92 MON; Pulse Ox 89% ; pml 10:12 BP 138 / 64 (auto/); pml 10:27 Pulse 90 MON; Pulse Ox 92% ; pml 10:27 BP 136 / 71 (auto/); pml 10:42 Pulse 88 MON; Pulse Ox 92% ; pml 10:42 BP 128 / 58 (auto/); pml 10:57 Pulse 88 MON; Pulse Ox 91% ; pml 10:57 BP 126 / 60 (auto/); pml 11:12 Pulse 82 MON; Pulse Ox 90% ; pml 11:12 BP 131 / 63 (auto/); pml 11:27 BP 127 / 55 (auto/); pml 11:27 Pulse 84 MON; Pulse Ox 89% ; pml 11:42 BP 117 / 56 (auto/); pml 11:55 Pulse 84 MON; Pulse Ox 89% ; pml 11:57 BP 122 / 63 (auto/); pml 12:09 Pulse 84 MON; Pulse Ox 90% ; pml 12:12 BP 117 / 66 (auto/); pml 12:27 BP 135 / 69 (auto/); pml 12:27 Pulse 84 MON; Pulse Ox 90% ; pml 12:42 Pulse 90 MON; Pulse Ox 91% ; pml 12:42 BP 137 / 63 (auto/); pml 12:57 Pulse 84 MON; Pulse Ox 90% ; pml 12:57 BP 124 / 59 (auto/); pml 13:12 Pulse 82 MON; Pulse Ox 90% ; pml 13:12 BP 124 / 64 (auto/); pml 13:27 Pulse 80 MON; Pulse Ox 90% ; pml 13:27 BP 121 / 56 (auto/); pml 13:41 Pulse 80 MON; Pulse Ox 91% ; pml 13:42 BP 133 / 60 (auto/); pml 13:57 Pulse 80 MON; pml 13:57 BP 130 / 60 (auto/); pml 14:12 Pulse 82 MON; pml 14:12 BP 124 / 55 (auto/); pml 14:21 Pulse 84 MON; pml 14:22 BP 120 / 58 (auto/); pml 14:24 BP 120 / 58; Pulse 83; Resp 18; Temp 98.3(TE); Pulse Ox 94% on R/A; Pain 2/10; ct3 14:27 Pulse 84 MON; Pulse Ox 90% ; pml 14:27 BP 144 / 65 (auto/); pml 14:42 Pulse 76 MON; Pulse Ox 86% ; pml 14:42 BP 137 / 67 (auto/); pml 14:57 Pulse 78 MON; Pulse Ox 88% ; pml 14:57 BP 132 / 69 (auto/); pml 15:09 BP 114 / 58; Pulse 78; Resp 18; Temp 98.3; Pulse Ox 97% on R/A; Pain 1/10; pml 16:15 BP 136 / 80; Pulse 76; Resp 18; Temp 97.9; Pulse Ox 97% ; Pain 1/10; pml 09:16 Body Mass Index 21.95 (54.43 kg, 157.48 cm) ct3 MDM: 09:31 IV Saline Lock ordered. fg 09:31 NS 0.9% 500 ml IV at bolus once ordered. fg 09:31 Undress patient appropriately for examination ordered. fg 09:31 Ondansetron 4 mg IVP once ordered. fg 09:31 morphine 2 mg IVP once ordered. fg 09:32 Basic Metabolic Profile Ordered. EDMS 09:32 CBC with Diff Ordered. EDMS 09:32 Liver Profile Ordered. EDMS 09:49 Chest, 1 View Ordered. EDMS 09:53 Financial registration complete. lg 10:20 [facility] Payment Agreement was scanned into [employer] and attached to record. lg 14:12 Vital Signs ordered. fg 14:12 Ondansetron 4 mg IVP once ordered. fg 14:13 ECG WITH READING ER PHYS+CARDIAG ordered. EDMS 14:14 Urinalysis Ordered. EDMS 14:14 Urine Culture Ordered. EDMS 15:43 Admission / Observation Status ordered. EDMS 15:58 2 GRAM SODIUM DIET ordered. EDMS 15:59 BLOOD CULTURES Ordered. EDMS Administered Medications: 09:44 Drug: NS 0.9% 500 ml [sodium chloride 0.9 % injection solution] Route: IV; Rate: bolus; pml Site: right antecubital; 10:25 Follow up: IV Status: Completed infusion; IV Intake: 500ml pml 09:44 Drug: Ondansetron 4 mg [ondansetron HCl 2 mg/mL intravenous solution (2 mL)] Route: pml IVP; Site: right antecubital; 09:44 Drug: morphine 2 mg [morphine 2 mg/mL intravenous cartridge (1 mL)] Route: IVP; Site: pml right antecubital; 10:14 Follow up: Response: No significant change. pml 14:22 Drug: Ondansetron 4 mg [ondansetron HCl 2 mg/mL intravenous solution (2 mL)] Route: dy IVP; Site: right antecubital; Signatures: Dispatcher [employer] EDGustavo Navarro Reg Reg lg Laya Mireles RN RN pml Reny Castro MD MD fg Youngs, David RN dy The chart was reviewed and I authenticate all verbal orders and agree with the evaluation and treatment provided.Corrections: (The following items were deleted from the chart) 15:58 09:33 NOTHING BY MOUTH+DIET ordered. EDMS EDMS Attachments: 10:20 [facility] Payment Agreement lg MTDD
[2016-09-30] MEDS ORDERED: NEXI20CA PO (16:17)
[2016-09-30] MEDS ORDERED: TRAM50TA2 PO (16:17)
[2016-09-30] MEDS ORDERED: HYDR-4266 PO (16:17)
[2016-09-30] MEDS ORDERED: ATOR40TA PO (16:17)
[2016-09-30] MEDS ORDERED: HYDR25TAB PO (16:17)
[2016-09-30] MEDS ORDERED: CARV3.12 PO (16:17)
[2016-09-30] MEDS ORDERED: LIDO5TD TOP (16:17)
[2016-09-30] MEDS ORDERED: ASPI1TAB PO (16:17)
[2016-09-30] MEDS ORDERED: GABA-279 PO (16:17)
[2016-09-30] MEDS ORDERED: VITMTA PO (16:17)
[2016-09-30] MEDS ORDERED: ATEN25TA PO (16:17)
[2016-09-30] MEDS ORDERED: LIDOCAINE 5% (LIDODERM) PATCH TOP PRN (16:30)
[2016-09-30] MEDS: traMADol 50 MG TAB PO PRN (18:05)
[2016-09-30] MEDS: NS 1,000 ML IV SCH (18:06)
[2016-09-30] MEDS: ONDANSETRON 4MG/2ML VIAL (J2405) IV PRN (18:06)
--- NOTE | 2016-09-30 20:02 | ECGEPIP ---
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
[2016-09-30] MEDS: **NOTE PATIENT COMMENT** MISC XX SCH (21:00)
--- NOTE | 2016-09-30 21:06 | HPE ---
DATE OF ADMISSION: 09/30/2016 PRIMARY CARE PROVIDER: Sonia Horner MD HISTORY OF PRESENT ILLNESS: This patient is a 76-year-old female with a past medical history significant for hypercholesterolemia, hypertension, gastroesophageal reflux disease (GERD), right lung cancer, abdominal aortic aneurysm status post repair, nonfunctional right kidney who presented to [facility] on 09/30/2016 for persistent dry heaving since yesterday. Patient stated all of a sudden she started having dry heaving symptoms. Started vomiting the whole night and unable to tolerate any type of oral intake, continuing nausea. No diarrhea. Patient denies any recent sick contact. Denies any recent medication adjustment, except additional carvedilol 2 weeks ago. Denied any new lifestyle modifications. Denies any chest pain, shortness of breath. Patient did complain about abdominal discomfort every time she has vomiting episodes. No diarrhea. Other significant history includes patient recently had a lung biopsy on 09/26/2016. Later the pathology result came back for small-cell carcinoma, and patient was just notified of the results. ALLERGIES: No known drug allergies. HOME MEDICATIONS: Atenolol, Nexium, Lipitor, aspirin, gabapentin, multivitamin, hydrochlorothiazide, hydralazine, carvedilol. PAST MEDICAL HISTORY: 1. Hypertension. 2. Hypercholesterolemia. 3. Gastroesophageal reflux disease. 4. Right upper lobe small-cell carcinoma. 5. Abdominal aortic aneurysm status post repair. 6. Nonfunctioning right kidney. PAST SURGICAL HISTORY: 1. Breast surgery for mastitis in the past. 2. Dilatation and curettage (DAC). 3. Left arm surgery status post traumatic fracture. SOCIAL HISTORY: Patient quit smoking in 1990. Denied alcohol use. Denies any recreational drug use. Currently the patient is a full code. REVIEW OF SYSTEMS: GENERAL: No fever. No chills. Unable to tolerate oral intake for the past 24-48 hours. HEENT: No vision change. No auditory changes. CARDIOVASCULAR: No chest pain. No palpitations. RESPIRATORY: No shortness of breath. No cough. GASTROINTESTINAL: Nausea, vomiting since yesterday and abdominal discomfort. No diarrhea. GENITOURINARY: Denied any dysuria or hematuria. MUSCULOSKELETAL: No muscle pain or joint pain. NEUROLOGIC: No numbness or tingling. OBJECTIVE: VITAL SIGNS: Blood pressure is 132/69, pulse is 78, respirations 18, temperature is 98.3, pulse oximetry is 97% in room air. Body weight is 54.43 kg, body height is 157.48 cm. GENERAL: Fatigue with facial flushing. Alert and oriented times three. HEENT: Normocephalic, atraumatic. Extraocular motor grossly intact. CARDIOVASCULAR: Positive S1, S2, regular rate. LUNGS: Clear to auscultation bilaterally. ABDOMEN: Mild tenderness to palpation, whole abdomen. Bowel sounds present. No rebound. No guarding. EXTREMITIES: No edema. No sign of cyanosis. NEUROLOGIC: Sensation to fine touch grossly intact. Muscle strength 5/5. LABORATORY DATA: WBC 9.3, hemoglobin 13.9, hematocrit 41.2, platelet count is 200. Sodium is 139, potassium 3.8, chloride is 97, carbon dioxide 26, BUN 31, creatinine is 1.62, GFR is 32.7, fasting glucose 146, calcium 9.6. Total bilirubin 1, direct bilirubin 0.2, AST 41, ALT is 19, alkaline phosphatase is 60, total protein is 7.7, albumin is 4. IMAGING STUDIES: Chest x-ray shows no change in size of the pleural parenchymal densities in the right lung compared to previous study. ASSESSMENT AND PLAN: 1. Acute kidney injury. Patient was admitted to the medical/surgical floor under observation status. Patient's acute kidney injury is most likely secondary to current active gastrointestinal (GI) symptoms. Will use Zofran IV to control nausea and vomiting. Patient will continue on the IV fluid running at 60 mL per hour. Patient had creatinine of 1.37 and GFR of 39.9 in April 2015. 2. Intermittent vomiting. We do not have a clear source for the patient's acute GI symptoms at this moment. No recent medication changes. No new diet. No recent sick contacts. Will followup with the cultures for now. 3. Gastroesophageal reflux disease. Patient will be on Protonix. 4. Right lower rib and back pain, secondary to nerve compression. Continue with Tramadol. It has been helping the patient to control the pain at baseline. 5. Right upper lobe small-cell lung cancer. Patient just had a biopsy done on 09/26/2016. Patient's founder / ceo is Dr. Raya. 6. Hypertension. Continue with atenolol, hydralazine, and hydrochlorothiazide. 7. History of abdominal aortic aneurysm, status post surgical repair. 8. Nonfunctional right kidney. 9. Deep vein thrombosis (DVT) prophylaxis. Patient will be on heparin.
[2016-09-30] MEDS: **hydrALAZINE HCL** 25 MG TAB PO SCH (21:13)
[2016-09-30] MEDS: ATORVASTATIN 20 MG TAB PO SCH (21:13)
[2016-09-30] MEDS: GABAPENTIN 100 MG CAP PO SCH (21:14)
[2016-09-30] MEDS: ATENOLOL 25 MG TAB PO SCH (21:14)
[2016-09-30] MEDS: HEPARIN SOD (PORCINE) 5000 UNITS/ML VIAL SC SCH (21:15)
[2016-10-01] MEDS: traMADol 50 MG TAB PO PRN (05:35)
[2016-10-01] MEDS: HEPARIN SOD (PORCINE) 5000 UNITS/ML VIAL SC SCH ×3 (05:35→22:00)
[2016-10-01 06:00] VITALS: BP 117/64
[2016-10-01] MEDS: ASPIRIN 81 MG ENTERIC TAB PO SCH (10:33)
[2016-10-01] MEDS: NS 1,000 ML IV SCH (10:33)
[2016-10-01] MEDS: hydroCHLOROthiazide 25 MG TAB PO SCH (10:34)
[2016-10-01] MEDS: PANTOPRAZOLE 40MG TAB (PROTONIX) PO SCH (10:34)
[2016-10-01] MEDS: **hydrALAZINE HCL** 25 MG TAB PO SCH ×2 (10:34→21:58)
[2016-10-01] MEDS: MULTIVITAMINS/MINERALS THERAP 1 TAB PO SCH (10:34)
[2016-10-01] MEDS: ATENOLOL 25 MG TAB PO SCH ×2 (10:34→21:59)
[2016-10-01] MEDS: ONDANSETRON 4MG/2ML VIAL (J2405) IV PRN (11:41)
[2016-10-01 14:00] VITALS: BP 133/89
[2016-10-01] MEDS: **NOTE PATIENT COMMENT** MISC XX SCH (21:00)
[2016-10-01] MEDS: ATORVASTATIN 20 MG TAB PO SCH (21:57)
[2016-10-01] MEDS: GABAPENTIN 100 MG CAP PO SCH (21:57)
[2016-10-01 22:00] VITALS: BP 146/68
[2016-10-02] MEDS: NS 1,000 ML IV SCH (00:09)
[2016-10-02 06:00] VITALS: BP 129/62
[2016-10-02] MEDS: ONDANSETRON 4MG/2ML VIAL (J2405) IV PRN (06:27)
[2016-10-02] MEDS: HEPARIN SOD (PORCINE) 5000 UNITS/ML VIAL SC SCH ×3 (06:27→20:26)
[2016-10-02 08:13] LABS: MEAN CORPUSCULAR HEMOGLOBIN 30.7 pg (27.0-33.0); MEAN CORPUSCULAR HGB CONC 33.6 g/dl (32.0-36.5); MEAN CORPUSCULAR VOLUME 91.4 fl (80.0-96.0); RED CELL DISTRIBUTION WIDTH 14.1 % (11.5-14.5); WHITE BLOOD COUNT 7.7 K/mm3 (4.0-10.0)
[2016-10-02 08:24] LABS: CALCIUM LEVEL 8.5 MG/DL (8.8-10.2); CREATININE FOR GFR 1.46 MG/DL (0.55-1.02); GLOMERULAR FILTRATION RATE 36.9 (>39); POTASSIUM SERUM 3.3 MEQ/L (3.5-5.1)
[2016-10-02] MEDS: ASPIRIN 81 MG ENTERIC TAB PO SCH (08:50)
[2016-10-02] MEDS: MULTIVITAMINS/MINERALS THERAP 1 TAB PO SCH (08:51)
[2016-10-02] MEDS: PANTOPRAZOLE 40MG TAB (PROTONIX) PO SCH (08:51)
[2016-10-02] MEDS: hydroCHLOROthiazide 25 MG TAB PO SCH (08:52)
[2016-10-02] MEDS: **hydrALAZINE HCL** 25 MG TAB PO SCH ×2 (08:52→20:28)
[2016-10-02] MEDS ORDERED: PROMETHAZINE INJ 25 MG/ML VIAL (J2550) IV PRN (09:30)
[2016-10-02] MEDS: CARVedilol 3.125 MG TAB PO SCH ×2 (10:32→20:29)
[2016-10-02] MEDS: KCL 40MEQ in NS 1000ML 1,000 ML IV SCH ×2 (10:33→20:27)
--- NOTE | 2016-10-02 11:38 | IPNPDOC ---
Subjective Date Seen The patient was seen on 10/01/16. Subjective Chief Complaint/HPI The patient is a 76-year-old female admitted with a reason for visit of Vomiting. Events since last encounter was feeling well this am but again started having dry heaves after breakfast and could not have any lunch and started feeling sick , no fever or chills, nochest pain or sob noabdominal pain or diarrhea. Objective Physical Examination General Exam: Positive: Alert, No Acute Distress Eye Exam: Positive: Conjunctiva & lids normal, EOMI, PERRLA, Negative: Sclera icteric ENT Exam: Positive: Atraumatic, Mucous membr. moist/pink, Pharynx Normal Neck Exam: Positive: Supple, Negative: JVD, thyromegaly Chest Exam: Positive: Clear to auscultation, Normal air movement Heart Exam: Positive: Normal S1, Normal S2, Rate Normal, Regular Rhythm, Negative: Murmurs, Rubs Abdomen Exam: Positive: Normal bowel sounds, Soft, Negative: Hepatospenomegaly, Tenderness Extremity Exam: Positive: Normal pulses, Negative: Clubbing, Cyanosis, Edema Assessment /Plan Problems (1) Gastroenteritis Status: Acute Problem Text: Possibly viral gastroenteritis. if patient has diarrhea will send GI panel , patent's also has been having same symptoms (2) Vomiting Status: Acute Problem Text: still having dry heaves after taking morning medications so could not be discharged. will continue with zofran and phenargan prn will continue with IVF. full liquid diet. (3) Hyperlipidemia Status: Chronic Problem Text: continue atorvastatin (4) Hypertension Status: Chronic Problem Text: will continue with coreg. Bp meds recently changed from atenolol to coreg.. by pmd hydralazine with hold parameters. (5) GERD (gastroesophageal reflux disease) Status: Chronic (6) Small cell lung cancer Status: Acute Problem Text: on the right followed by dr Araiza has been referred to dr De La Cruz and Mague. (7) CKD (chronic kidney disease), stage III Status: Chronic Problem Text: creatinine at baseline. will continue to monitor. has right nonfunctional kidney. (8) S/P AAA (abdominal aortic aneurysm) repair Status: Chronic Plan/VTE VTE Prophylaxis Ordered?: Yes VS, I&O, 24H, Fishbone Vital Signs/I&O Vital Signs Date Time Temp Pulse Resp B/P Pulse Ox O2 Delivery O2 Flow Rate FiO2 10/01/16 10:34 117/64 10/01/16 10:34 72 10/01/16 06:05 16 10/01/16 06:00 97.9 90 Room Air I&O- Last 24 Hours up to 6 AM 10/01/16 06:00 Intake Total 480 ml Output Total 200 ml Balance 280 ml Laboratory Data Microbiology Microbiology 09/30/16 Blood Culture, Received Pending WENDY BOYER MD Oct 01, 2016 14:06
--- NOTE | 2016-10-02 11:46 | IPNPDOC ---
Subjective Date Seen The patient was seen on 10/02/16. Subjective Chief Complaint/HPI The patient is a 76-year-old female admitted with a reason for visit of Vomiting. Events since last encounter this morning patient had large amount of diarrhea and then started having dry heaves. was well last night and yesterday evening. feeling very weak and tired. Objective Physical Examination General Exam: Positive: Alert, Cooperative, No Acute Distress Eye Exam: Positive: Conjunctiva & lids normal, EOMI, PERRLA, Negative: Sclera icteric ENT Exam: Positive: Atraumatic, Mucous membr. moist/pink, Pharynx Normal Neck Exam: Positive: Supple, Negative: JVD, thyromegaly Chest Exam: Positive: Clear to auscultation, Normal air movement Heart Exam: Positive: Normal S1, Normal S2, Rate Normal, Regular Rhythm, Negative: Murmurs, Rubs Abdomen Exam: Positive: Normal bowel sounds, Soft, Negative: Hepatospenomegaly, Tenderness Extremity Exam: Positive: Normal pulses, Negative: Clubbing, Cyanosis, Edema Assessment /Plan Problems (1) Gastroenteritis Status: Acute Problem Text: Possibly viral gastroenteritis. if patient has diarrhea again will send GI panel , patent's also has been having same symptoms will continue with ivf (2) Vomiting Status: Acute Problem Text: still having dry heaves after taking morning medications so could not be discharged. will continue with zofran and phenargan prn will continue with IVF. full liquid diet. (3) Hyperlipidemia Status: Chronic Problem Text: continue atorvastatin (4) Hypertension Status: Chronic Problem Text: will continue with coreg. Bp meds recently changed from atenolol to coreg.. by pmd hydralazine with hold parameters. (5) GERD (gastroesophageal reflux disease) Status: Chronic (6) Small cell lung cancer Status: Acute Problem Text: on the right followed by dr Araiza has been referred to dr De La Cruz and [facility]. (7) CKD (chronic kidney disease), stage III Status: Chronic Problem Text: creatinine at baseline. will continue to monitor. has right nonfunctional kidney. (8) S/P AAA (abdominal aortic aneurysm) repair Status: Chronic Plan/VTE VTE Prophylaxis Ordered?: Yes VS, I&O, 24H, Fishbone Vital Signs/I&O Vital Signs Date Time Temp Pulse Resp B/P Pulse Ox O2 Delivery O2 Flow Rate FiO2 2/19/17 10:32 70 129/62 10/02/16 06:00 98.3 18 90 Room Air I&O- Last 24 Hours up to 6 AM 10/02/16 06:00 Intake Total 2302 ml Output Total 700 ml Balance 1602 ml Laboratory Data 24H LABS Laboratory Tests 2 10/02/16 07:44: Anion Gap 10, Blood Urea Nitrogen 18, Creatinine 1.46H, Sodium Level 141, Potassium Level 3.3L, Chloride Level 103, Carbon Dioxide Level 28, Calcium Level 8.5L, Glomerular Filtration Rate 36.9L, Lymphocytes (Manual) 23, Monocytes (Manual) 3, Neutrophils 74, Platelet Estimate NORMAL, Red Blood Cell Morphology NORMAL CBC/BMP Laboratory Tests 10/02/16 07:44 Calcium Level 8.5 L Microbiology Microbiology 09/30/16 Blood Culture - Preliminary, Resulted No growth after 24 hours . All specim... WENDY BOYER MD Oct 02, 2016 11:46
[2016-10-02 14:00] VITALS: BP 163/70
--- NOTE | 2016-10-02 17:16 | EDDOCDS ---
Nurse's Notes [facility] Name: Flory Womack Age: 76 yrs Sex: Female : 1940 Arrival Date: 09/30/2016 Time: 09:03 Bed 10 Private MD: Mirta Horner Diagnosis: Nausea and vomiting Presentation: 09/30 09:06 Presenting complaint: EMS states: not sleeping well last night, nauseated. hx of lung pml tumor and reports back pain. 09:11 Acute neurological deficits are not present. Mechanism of Injury: No Mechanism of pml Injury. Adult Sepsis Screening: The patient does not have new or worsening altered mentation. Patient's respiratory rate is less than 22. Systolic blood pressure is greater than 100. Patient has a qSOFA score of 0- Negative Sepsis Screen. Suicide/Homicide risk assessment- the patient denies having any suicidal and/or homicidal ideations and does not present with any other emotional, behavioral or mental health complaints. Status: Patient is not a teleservices representative or dependent. Transition of care: patient was not received from another setting of care. 09:11 Acuity: RANJEET Level 3 pml 09:11 Method Of Arrival: Ambulance pml 09:17 Presenting complaint: Patient states: back pain and dry heaving all night. pml Triage Assessment: 09:25 General: Appears in no apparent distress, Behavior is appropriate for age, cooperative. pml Pain: Location: right scapular area and right subscapular area Pain currently is 6 out of 10 on a pain scale. The patient is triaged at the bedside. See Assessment in Nurses Notes section of ED record. Neurological: Level of Consciousness is awake, alert, Oriented to person, place, time. Cardiovascular: Capillary refill < 3 seconds. Respiratory: Airway is patent Respiratory effort is even, unlabored. Respiratory: Breath sounds are diminished in right upper lobe, left upper lobe and right middle lobe. GI: Abdomen is non- distended. Derm: Skin is pink, warm & dry. Musculoskeletal: Circulation, motion, and sensation intact Capillary refill < 3 seconds. Historical: - Allergies: no known allergies; - Home Meds: 1. Atenolol 12.5mg Oral 2 times per day 2. Nexium 20 mg Oral cpDR 1 cap once daily 3. Lipitor 40 mg Oral tab 1 tab once daily 4. aspirin 81 mg Oral TbEC 1 tab once daily 5. gabapentin 100 mg Oral tab 100 mg daily 6. multivitamin Oral cap 1 tablet daily 7. hydrochlorothiazide 25 mg Oral tab 1 tab once daily 8. hydralazine 10 mg Oral tab 1 tab 2 times per day 9. carvedilol 6.25 mg oral tab nightly - PMHx: Hypertension; GERD; High Cholesterol; right lung mass; Aneurysm, Abdominal; right kidney non functional; - Social history: Smoking status: Patient states former smoker of tobacco. No barriers to communication noted, The patient speaks fluent Czech, Speaks appropriately for age. - Family history: Not pertinent. - : The pt / caregiver states he / she is not on anticoagulants. Home medication list is obtained from the patient. - Exposure Risk Screening:: None identified. Screenin: Screening information is obtained from the patient. Fall risk: No risks identified. pml Assistance ADL's: requires no assistance with activities of daily living. Abuse/DV Screen: The patient / caregiver reports he/she is: not in a situation that causes fear, pain or injury. Nutritional screening: No deficits noted. Advance Directives: Currently, there is no health care proxy. home support is adequate. Assessment: : General: see triage note. pml 10:12 General: Appears in no apparent distress, Behavior is appropriate for age, cooperative. pml Pain: Location: right subscapular area and right scapular area Pain currently is 6 out of 10 on a pain scale. Neurological: Level of Consciousness is awake, alert, Oriented to person, place, time. Cardiovascular: Capillary refill < 3 seconds. Respiratory: Airway is patent Respiratory effort is even, unlabored. GI: Abdomen is non- distended. Derm: Skin is pink, warm & dry. 11:23 General: resting on stretcher, eyes closed, appears asleep, resps easy and unlabored, pml skin p/w/d. sinus rhythm on monitor . 12:32 General: Pt ambulatory in hallway to bathroom. . pml 12:46 General: Appears in no apparent distress, Behavior is appropriate for age, cooperative. pml General: Per MD Castro pt may take own tramdol as prescribed. Pain: Location: left low back. Neurological: Level of Consciousness is awake, alert, Oriented to person, place, time. Cardiovascular: Capillary refill < 3 seconds. Respiratory: Airway is patent Respiratory effort is even, unlabored. Derm: Skin is pink, warm & dry. 13:48 General: resting quietly on stretcher, family at bedside. resps easy and unlabored, pml skin p/w/d. sinus rhythm on monitor without ectopy. 15:08 General: Appears in no apparent distress, Behavior is appropriate for age, cooperative. pml Pain: Location: left low back and right subscapular area and right scapular area Pain currently is 1 out of 10 on a pain scale. Neurological: Level of Consciousness is awake, alert, Oriented to person, place, time. Cardiovascular: Capillary refill < 3 seconds. Respiratory: Airway is patent Respiratory effort is even, unlabored. GI: Abdomen is non- distended. Derm: Skin is pink, warm & dry. 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 states she is dry heaving again. no emesis has been produced since arrival to department. . 16:13 General: Appears in no apparent distress, Behavior is appropriate for age, cooperative. pml Pain: Location: left low back and right subscapular area and right scapular area Pain currently is 1 out of 10 on a pain scale. Neurological: Level of Consciousness is awake, alert, Oriented to person, place, time. Cardiovascular: Capillary refill < 3 seconds. Respiratory: Airway is patent Respiratory effort is even, unlabored. GI: Reports nausea. Derm: Skin is pink, warm & dry. Vital Signs: 09:16 BP 137 / 65; Pulse 97; Resp 18; Temp 97.3(O); Pulse Ox 94% on R/A; Weight 54.43 kg (R); ct3 Height 5 ft. 2 in. (157.48 cm) (R); Pain 5/10; 09:27 Pulse 96 MON; Pulse Ox 93% ; pml 09:27 BP 133 / 66 (auto/); pml 09:42 Pulse 96 MON; Pulse Ox 93% ; pml 09:42 BP 136 / 63 (auto/); pml 09:57 Pulse 92 MON; Pulse Ox 95% ; pml 09:57 BP 129 / 59 (auto/); pml 10:12 Pulse 92 MON; Pulse Ox 89% ; pml 10:12 BP 138 / 64 (auto/); pml 10:27 Pulse 90 MON; Pulse Ox 92% ; pml 10:27 BP 136 / 71 (auto/); pml 10:42 Pulse 88 MON; Pulse Ox 92% ; pml 10:42 BP 128 / 58 (auto/); pml 10:57 Pulse 88 MON; Pulse Ox 91% ; pml 10:57 BP 126 / 60 (auto/); pml 11:12 Pulse 82 MON; Pulse Ox 90% ; pml 11:12 BP 131 / 63 (auto/); pml 11:27 BP 127 / 55 (auto/); pml 11:27 Pulse 84 MON; Pulse Ox 89% ; pml 11:42 BP 117 / 56 (auto/); pml 11:55 Pulse 84 MON; Pulse Ox 89% ; pml 11:57 BP 122 / 63 (auto/); pml 12:09 Pulse 84 MON; Pulse Ox 90% ; pml 12:12 BP 117 / 66 (auto/); pml 12:27 BP 135 / 69 (auto/); pml 12:27 Pulse 84 MON; Pulse Ox 90% ; pml 12:42 Pulse 90 MON; Pulse Ox 91% ; pml 12:42 BP 137 / 63 (auto/); pml 12:57 Pulse 84 MON; Pulse Ox 90% ; pml 12:57 BP 124 / 59 (auto/); pml 13:12 Pulse 82 MON; Pulse Ox 90% ; pml 13:12 BP 124 / 64 (auto/); pml 13:27 Pulse 80 MON; Pulse Ox 90% ; pml 13:27 BP 121 / 56 (auto/); pml 13:41 Pulse 80 MON; Pulse Ox 91% ; pml 13:42 BP 133 / 60 (auto/); pml 13:57 Pulse 80 MON; pml 13:57 BP 130 / 60 (auto/); pml 14:12 Pulse 82 MON; pml 14:12 BP 124 / 55 (auto/); pml 14:21 Pulse 84 MON; pml 14:22 BP 120 / 58 (auto/); pml 14:24 BP 120 / 58; Pulse 83; Resp 18; Temp 98.3(TE); Pulse Ox 94% on R/A; Pain 2/10; ct3 14:27 Pulse 84 MON; Pulse Ox 90% ; pml 14:27 BP 144 / 65 (auto/); pml 14:42 Pulse 76 MON; Pulse Ox 86% ; pml 14:42 BP 137 / 67 (auto/); pml 14:57 Pulse 78 MON; Pulse Ox 88% ; pml 14:57 BP 132 / 69 (auto/); pml 15:09 BP 114 / 58; Pulse 78; Resp 18; Temp 98.3; Pulse Ox 97% on R/A; Pain 1/10; pml 16:15 BP 136 / 80; Pulse 76; Resp 18; Temp 97.9; Pulse Ox 97% ; Pain 1/10; pml 09:16 Body Mass Index 21.95 (54.43 kg, 157.48 cm) ct3 Vitals: 09:16 Log In Time N/A - ambulance arrival. ct3 ED Course: 09:04 Patient visited by Carlita Villegas, Asphalt Heater Tender. lbd 09:04 Mirta Horner is Private Physician. lbd 09:04 Patient moved to Waiting lbd 09:05 Priyanka Akers RN is Primary Nurse. lbd 09:05 Patient moved to 10 lbd 09:06 Laya Mireles,RN is Primary Nurse. pml 09:10 Reny Castro MD is Attending Physician. fg 09:10 Patient visited by Reny Castro MD. fg 09:14 Triage Initiated pml 09:16 Patient has correct armband on for positive identification. Placed in gown. Bed in low ct3 position. Call light in reach. Side rails up X2. household chores on. Pulse ox on. NIBP on. 09:17 Patient visited by Brianna Oconnell PCA. ct3 09:26 The patient / caregiver is instructed regarding the plan of care and ED course. pml 09:27 Patient visited by Laya Mireles RN. pml 09:44 Inserted peripheral IV: 20gauge IV in right antecubital area and blood collected. pml Patient tolerated the procedure well. 10:14 Patient visited by Laya Mireles RN. pml 10:20 [facility] Payment Agreement was scanned into [employer] and attached to record. lg 10:27 Chest, 1 View Returned. EDMS 11:02 Patient visited by Brianna Oconnell PCA. ct3 11:24 Patient visited by Laya Mireles RN. pml 12:03 Patient visited by Brianna Oconnell PCA. ct3 12:32 Patient visited by Laya Mireles RN. pml 12:42 Patient visited by Brianna Oconnell PCA. ct3 12:42 Assisted to bedside commode. ct3 12:47 Patient visited by Laya Mireles,PACO. pml 13:49 Patient visited by Laya Mireles,PACO. pml 14:24 Patient visited by Brianna Oconnell PCA. ct3 14:54 EKG done. (by ED staff). Reviewed by Reny Castro MD. ct3 15:02 Mirta Horner is Referral Physician. fg 15:02 Matt Raya is Referral Physician. fg 15:09 Discontinued lock intact, bleeding controlled, pressure dressing applied, No pml redness/swelling at site. No procedures done that require assistance. 15:13 Patient visited by Laya Mireles,PACO. pml 15:23 Jeanne Grimes psychologist. ys2 15:23 Inserted peripheral IV: 20gauge IV in right antecubital area Patient tolerated the pml procedure well. 15:31 Jeanne Grimes is Hospitalizing Provider. fg 10/01 10:00 T-Sheet-- Draft Copy was scanned into [employer] and attached to record. gb 10:00 ECG/EKG was scanned into [employer] and attached to record. gb 10:00 PCR was scanned into [employer] and attached to record. gb 15:01 PCR was scanned into [employer] and attached to record. gb Administered Medications: 09/30 09:44 Drug: NS 0.9% 500 ml [sodium chloride 0.9 % injection solution] Route: IV; Rate: bolus; pml Site: right antecubital; 10:25 Follow up: IV Status: Completed infusion; IV Intake: 500ml pml 09:44 Drug: Ondansetron 4 mg [ondansetron HCl 2 mg/mL intravenous solution (2 mL)] Route: pml IVP; Site: right antecubital; 09:44 Drug: morphine 2 mg [morphine 2 mg/mL intravenous cartridge (1 mL)] Route: IVP; Site: pml right antecubital; 10:14 Follow up: Response: No significant change. pml 14:22 Drug: Ondansetron 4 mg [ondansetron HCl 2 mg/mL intravenous solution (2 mL)] Route: dy IVP; Site: right antecubital; Intake: 10:25 IV: 500.00ml; Total: 500.00ml. pml Order Results: Lab Order: Basic Metabolic Profile; SPEC'M 09/30/16 09:36 Test: GLUCOSE, FASTING; Value: 146; Range: 83-110; Abnormal: Above high normal; Units: MG/DL; Status: F Test: BLOOD UREA NITROGEN; Value: 31; Range: 7-18; Abnormal: Above high normal; Units: MG/DL; Status: F Test: CREATININE FOR GFR; Value: 1.62; Range: 0.55-1.02; Abnormal: Above high normal; Units: MG/DL; Status: F Test: GLOMERULAR FILTRATION RATE; Value: 32.7; Range: >39; Abnormal: Below low normal; Status: F Test: SODIUM LEVEL; Value: 139; Range: 136-145; Units: MEQ/L; Status: F Test: POTASSIUM SERUM; Value: 3.8; Range: 3.5-5.1; Units: MEQ/L; Status: F Test: CHLORIDE LEVEL; Value: 97; Range: 98-107; Abnormal: Below low normal; Units: MEQ/L; Status: F Test: CARBON DIOXIDE LEVEL; Value: 26; Range: 21-32; Units: MEQ/L; Status: F Test: ANION GAP; Value: 16; Range: 8-16; Units: MEQ/L; Status: F Test: CALCIUM LEVEL; Value: 9.6; Range: 8.8-10.2; Units: MG/DL; Status: F Test Note: ; Units are mL/min/1.73 m2 Chronic Kidney Disease Staging per NKF: Stage I & II GFR >=60 Normal to Mildly Decreased Stage III GFR 30-59 Moderately Decreased Stage IV GFR 15-29 Severely Decreased Stage V GFR <15 Very Little GFR Left ESRD GFR <15 on ASSISTANT BASEBALL COACH Lab Order: CBC with Diff; SPEC'M 09/30/16 09:36 Test: WHITE BLOOD COUNT; Value: 9.3; Range: 4.0-10.0; Units: K/mm3; Status: F Test: RED BLOOD COUNT; Value: 4.64; Range: 4.00-5.40; Units: M/mm3; Status: F Test: HEMOGLOBIN; Value: 13.9; Range: 12.0-16.0; Units: g/dl; Status: F Test: HEMATOCRIT; Value: 41.2; Range: 36.0-47.0; Units: %; Status: F Test: MEAN CORPUSCULAR VOLUME; Value: 88.9; Range: 80.0-96.0; Units: fl; Status: F Test: MEAN CORPUSCULAR HEMOGLOBIN; Value: 30.1; Range: 27.0-33.0; Units: pg; Status: F Test: MEAN CORPUSCULAR HGB CONC; Value: 33.8; Range: 32.0-36.5; Units: g/dl; Status: F Test: RED CELL DISTRIBUTION WIDTH; Value: 13.8; Range: 11.5-14.5; Units: %; Status: F Test: PLATELET COUNT, AUTOMATED; Value: 200; Range: 150-450; Units: k/mm3; Status: F Test: NEUTROPHILS %; Value: 92.3; Range: 36.0-66.0; Abnormal: Above high normal; Units: %; Status: F Test: LYMPH %; Value: 3.6; Range: 24.0-44.0; Abnormal: Below low normal; Units: %; Status: F Test: MONO %; Value: 2.7; Range: 0.0-5.0; Units: %; Status: F Test: EOS %; Value: 0.4; Range: 0.0-3.0; Units: %; Status: F Test: BASO %; Value: 0.2; Range: 0.0-1.0; Units: %; Status: F Test: LARGE UNSTAINED CELL %; Value: 0.7; Range: 0.0-4.0; Units: %; Status: F Test: NEUTROPHILS #; Value: 8.6; Range: 1.8-7.7; Abnormal: Above high normal; Units: K/mm3; Status: F Test: LYMPH #; Value: 0.3; Range: 1.5-4.5; Abnormal: Below low normal; Units: K/mm3; Status: F Test: MONO #; Value: 0.3; Range: 0.0-0.8; Units: K/mm3; Status: F Test: EOS #; Value: 0.0; Range: 0.0-0.50; Units: K/mm3; Status: F Test: BASO #; Value: 0.0; Range: 0.0-0.2; Units: K/mm3; Status: F Test: LARGE UNSTAINED CELL #; Value: 0.1; Range: 0.0-0.4; Units: K/mm3; Status: F Lab Order: Liver Profile; SPEC'M 09/30/16 09:36 Test: AST/SGOT; Value: 41; Range: 15-37; Abnormal: Above high normal; Units: U/L; Status: F Test: ALT/SGPT; Value: 19; Range: 12-78; Units: U/L; Status: F Test: ALKALINE PHOSPHATASE; Value: 60; Range: 45-117; Units: U/L; Status: F Test: BILIRUBIN,TOTAL; Value: 1.0; Range: 0.2-1.0; Units: MG/DL; Status: F Test: BILIRUBIN,DIRECT; Value: 0.2; Range: 0.0-0.2; Units: MG/DL; Status: F Test: TOTAL PROTEIN; Value: 7.7; Range: 6.4-8.2; Units: GM/DL; Status: F Test: ALBUMIN; Value: 4.0; Range: 3.2-5.2; Units: GM/DL; Status: F Test: ALBUMIN/GLOBULIN RATIO; Value: 1.08; Range: 1.00-1.93; Status: F Radiology Order: Chest, 1 View Test: Chest, 1 View REASON FOR EXAMINATION: Chest Pain; CHEST, ONE VIEW:; ; HISTORY: Chest pain.; ; COMPARISON: 09/26/2016.; ; A pleural based parenchymal density is present in the right upper lobe, unchanged; compared to the previous study. A parenchymal density is present in the right; hilar region, unchanged compared to the previous study. A diffuse increase in; interstitial markings is present in the lungs consistent with chronic; interstitial fibrosis. The heart is normal in size. The pulmonary vasculature; is normal in appearance.; ; IMPRESSION:; ; There has been no change in size of the pleural and parenchymal densities in the; right lung compared to the previous study.; ; ; Signed by; Aguila Byrd MD 09/30/2016 10:20 A; Outcome: 15:02 Discharge ordered by Provider. fg 15:09 Discharge Assessment: Patient awake, alert and oriented x 3. No cognitive and/or pml functional deficits noted. Patient verbalized understanding of disposition instructions. patient administered narcotics - yes. Pt provided with safe discharge. The following High Risk Discharge criteria are identified: None. Discharged to home ambulatory, with family. Condition: good Condition: stable. Discharge instructions given to patient, Instructed on discharge instructions, follow up and referral plans. medication usage, Demonstrated understanding of instructions, Pt was receptive of discharge instructions/ teaching. Prescriptions given X 1. No special radiology studies were completed. Property sent home with patient. 15:11 Patient left the ED. pml 15:31 Decision to Hospitalize by Provider. fg 16:15 Discharge Assessment: Patient awake, alert and oriented x 3. No cognitive and/or pml functional deficits noted. Patient verbalized understanding of disposition instructions. The following High Risk Discharge criteria are identified: None. Admitted to Med/Surg accompanied by tech, via stretcher, with chart. Condition: stable. Admission hand-off: Report Faxed Fax receipt verified by [employer]. 16:15 Patient left the ED. pml Signatures: Dispatcher [employer] EDMS Carlita Villegas, Asphalt Heater Tender Unit lbd Camilla Ortiz, Reg Reg gb Gustavo Garner, Reg Reg lg Matt Barr, RN Brianna Chicas, SOLAR DESIGNER/INSTALLER SOLAR DESIGNER/INSTALLER ct3 Laya Mireles RN RN pml Gill, Frances, MD MD fg Sung, Jeanne ys2 Chart Complete MTDConstantine
--- NOTE | 2016-10-02 17:16 | EDDOCDS ---
Physician Documentation [facility] Name: Flory Womack Age: 76 yrs Sex: Female : 1940 Arrival Date: 09/30/2016 Time: 09:03 Bed 10 Private MD: Mirta Horner Disposition: 09/30/16 15:31 Hospitalization ordered by Jeanne Grimes for Inpatient Admission. Preliminary diagnosis is Nausea and vomiting. - Bed requested for 5 Byrnes. - Status is Inpatient Admission. pml - Condition is Stable. - Problem is new. - Symptoms have improved. Historical: - Allergies: no known allergies; - Home Meds: 1. Atenolol 12.5mg Oral 2 times per day 2. Nexium 20 mg Oral cpDR 1 cap once daily 3. Lipitor 40 mg Oral tab 1 tab once daily 4. aspirin 81 mg Oral TbEC 1 tab once daily 5. gabapentin 100 mg Oral tab 100 mg daily 6. multivitamin Oral cap 1 tablet daily 7. hydrochlorothiazide 25 mg Oral tab 1 tab once daily 8. hydralazine 10 mg Oral tab 1 tab 2 times per day 9. carvedilol 6.25 mg oral tab nightly - PMHx: Hypertension; GERD; High Cholesterol; right lung mass; Aneurysm, Abdominal; right kidney non functional; - Social history: Smoking status: Patient states former smoker of tobacco. No barriers to communication noted, The patient speaks fluent Barbadian, Speaks appropriately for age. - Family history: Not pertinent. - : The pt / caregiver states he / she is not on anticoagulants. Home medication list is obtained from the patient. - Exposure Risk Screening:: None identified. Vital Signs: 09/30 09:16 BP 137 / 65; Pulse 97; Resp 18; Temp 97.3(O); Pulse Ox 94% on R/A; Weight 54.43 kg / ct3 120 lbs (R); Height 5 ft. 2 in. (157.48 cm) (R); Pain 5/10; 09:27 Pulse 96 MON; Pulse Ox 93% ; pml 09:27 BP 133 / 66 (auto/); pml 09:42 Pulse 96 MON; Pulse Ox 93% ; pml 09:42 BP 136 / 63 (auto/); pml 09:57 Pulse 92 MON; Pulse Ox 95% ; pml 09:57 BP 129 / 59 (auto/); pml 10:12 Pulse 92 MON; Pulse Ox 89% ; pml 10:12 BP 138 / 64 (auto/); pml 10:27 Pulse 90 MON; Pulse Ox 92% ; pml 10:27 BP 136 / 71 (auto/); pml 10:42 Pulse 88 MON; Pulse Ox 92% ; pml 10:42 BP 128 / 58 (auto/); pml 10:57 Pulse 88 MON; Pulse Ox 91% ; pml 10:57 BP 126 / 60 (auto/); pml 11:12 Pulse 82 MON; Pulse Ox 90% ; pml 11:12 BP 131 / 63 (auto/); pml 11:27 BP 127 / 55 (auto/); pml 11:27 Pulse 84 MON; Pulse Ox 89% ; pml 11:42 BP 117 / 56 (auto/); pml 11:55 Pulse 84 MON; Pulse Ox 89% ; pml 11:57 BP 122 / 63 (auto/); pml 12:09 Pulse 84 MON; Pulse Ox 90% ; pml 12:12 BP 117 / 66 (auto/); pml 12:27 BP 135 / 69 (auto/); pml 12:27 Pulse 84 MON; Pulse Ox 90% ; pml 12:42 Pulse 90 MON; Pulse Ox 91% ; pml 12:42 BP 137 / 63 (auto/); pml 12:57 Pulse 84 MON; Pulse Ox 90% ; pml 12:57 BP 124 / 59 (auto/); pml 13:12 Pulse 82 MON; Pulse Ox 90% ; pml 13:12 BP 124 / 64 (auto/); pml 13:27 Pulse 80 MON; Pulse Ox 90% ; pml 13:27 BP 121 / 56 (auto/); pml 13:41 Pulse 80 MON; Pulse Ox 91% ; pml 13:42 BP 133 / 60 (auto/); pml 13:57 Pulse 80 MON; pml 13:57 BP 130 / 60 (auto/); pml 14:12 Pulse 82 MON; pml 14:12 BP 124 / 55 (auto/); pml 14:21 Pulse 84 MON; pml 14:22 BP 120 / 58 (auto/); pml 14:24 BP 120 / 58; Pulse 83; Resp 18; Temp 98.3(TE); Pulse Ox 94% on R/A; Pain 2/10; ct3 14:27 Pulse 84 MON; Pulse Ox 90% ; pml 14:27 BP 144 / 65 (auto/); pml 14:42 Pulse 76 MON; Pulse Ox 86% ; pml 14:42 BP 137 / 67 (auto/); pml 14:57 Pulse 78 MON; Pulse Ox 88% ; pml 14:57 BP 132 / 69 (auto/); pml 15:09 BP 114 / 58; Pulse 78; Resp 18; Temp 98.3; Pulse Ox 97% on R/A; Pain 1/10; pml 16:15 BP 136 / 80; Pulse 76; Resp 18; Temp 97.9; Pulse Ox 97% ; Pain 1/10; pml 09:16 Body Mass Index 21.95 (54.43 kg, 157.48 cm) ct3 MDM: 09:31 IV Saline Lock ordered. fg 09:31 NS 0.9% 500 ml IV at bolus once ordered. fg 09:31 Undress patient appropriately for examination ordered. fg 09:31 Ondansetron 4 mg IVP once ordered. fg 09:31 morphine 2 mg IVP once ordered. fg 09:32 Basic Metabolic Profile Ordered. EDMS 09:32 CBC with Diff Ordered. EDMS 09:32 Liver Profile Ordered. EDMS 09:49 Chest, 1 View Ordered. EDMS 09:53 Financial registration complete. lg 10:20 [facility] [place] Payment Agreement was scanned into [employer] and attached to record. lg 14:12 Vital Signs ordered. fg 14:12 Ondansetron 4 mg IVP once ordered. fg 14:13 ECG WITH READING ER PHYS+CARDIAG ordered. EDMS 14:14 Urinalysis Ordered. EDMS 14:14 Urine Culture Ordered. EDMS 15:43 Admission / Observation Status ordered. EDMS 15:58 2 GRAM SODIUM DIET ordered. EDMS 15:59 BLOOD CULTURES Ordered. EDMS 16:25 HEMOGLOBIN A1C Ordered. EDMS 10/01 10:00 T-Sheet-- Draft Copy was scanned into [employer] and attached to record. gb 10:00 ECG/EKG was scanned into [employer] and attached to record. gb 10:00 PCR was scanned into [employer] and attached to record. gb 15:01 PCR was scanned into [employer] and attached to record. gb Administered Medications: 09/30 09:44 Drug: NS 0.9% 500 ml [sodium chloride 0.9 % injection solution] Route: IV; Rate: bolus; pml Site: right antecubital; 10:25 Follow up: IV Status: Completed infusion; IV Intake: 500ml pml 09:44 Drug: Ondansetron 4 mg [ondansetron HCl 2 mg/mL intravenous solution (2 mL)] Route: pml IVP; Site: right antecubital; 09:44 Drug: morphine 2 mg [morphine 2 mg/mL intravenous cartridge (1 mL)] Route: IVP; Site: pml right antecubital; 10:14 Follow up: Response: No significant change. pml 14:22 Drug: Ondansetron 4 mg [ondansetron HCl 2 mg/mL intravenous solution (2 mL)] Route: dy IVP; Site: right antecubital; Signatures: Dispatcher [employer] EDMS Camilla Ortiz, Reg Reg gb Gustavo Garner, Reg Reg lg Laya Mireles,PACO RN pml Reny Castro MD MD fg Youngs, David RN dy The chart was reviewed and I authenticate all verbal orders and agree with the evaluation and treatment provided.Corrections: (The following items were deleted from the chart) 15:58 09:33 NOTHING BY MOUTH+DIET ordered. EDMS EDMS Attachments: 10:20 [facility] Payment Agreement lg 10/01 10:00 T-Sheet-- Draft Copy gb 10:00 ECG/EKG gb Chart Complete MTDD
--- NOTE | 2016-10-02 17:16 | EDDOCDS ---
Physician Documentation [facility] Name: Flory Womack Age: 76 yrs Sex: Female : 1940 Arrival Date: 09/30/2016 Time: 09:03 Bed 10 Private MD: Mirta Horner Disposition: 09/30/16 15:31 Hospitalization ordered by Jeanne Grimes for Inpatient Admission. Preliminary diagnosis is Nausea and vomiting. - Bed requested for 5 Byr[place]. - Status is Inpatient Admission. pml - Condition is Stable. - Problem is new. - Symptoms have improved. Historical: - Allergies: no known allergies; - Home Meds: 1. Atenolol 12.5mg Oral 2 times per day 2. Nexium 20 mg Oral cpDR 1 cap once daily 3. Lipitor 40 mg Oral tab 1 tab once daily 4. aspirin 81 mg Oral TbEC 1 tab once daily 5. gabapentin 100 mg Oral tab 100 mg daily 6. multivitamin Oral cap 1 tablet daily 7. hydrochlorothiazide 25 mg Oral tab 1 tab once daily 8. hydralazine 10 mg Oral tab 1 tab 2 times per day 9. carvedilol 6.25 mg oral tab nightly - PMHx: Hypertension; GERD; High Cholesterol; right lung mass; Aneurysm, Abdominal; right kidney non functional; - Social history: Smoking status: Patient states former smoker of tobacco. No barriers to communication noted, The patient speaks fluent B[place]udian, Speaks appropriately for age. - Family history: Not pertinent. - : The pt / caregiver states he / she is not on anticoagulants. Home medication list is obtained from the patient. - Exposure Risk Screening:: None identified. Vital Signs: 09/30 09:16 BP 137 / 65; Pulse 97; Resp 18; Temp 97.3(O); Pulse Ox 94% on R/A; Weight 54.43 kg / ct3 120 lbs (R); Height 5 ft. 2 in. (157.48 cm) (R); Pain 5/10; 09:27 Pulse 96 MON; Pulse Ox 93% ; pml 09:27 BP 133 / 66 (auto/); pml 09:42 Pulse 96 MON; Pulse Ox 93% ; pml 09:42 BP 136 / 63 (auto/); pml 09:57 Pulse 92 MON; Pulse Ox 95% ; pml 09:57 BP 129 / 59 (auto/); pml 10:12 Pulse 92 MON; Pulse Ox 89% ; pml 10:12 BP 138 / 64 (auto/); pml 10:27 Pulse 90 MON; Pulse Ox 92% ; pml 10:27 BP 136 / 71 (auto/); pml 10:42 Pulse 88 MON; Pulse Ox 92% ; pml 10:42 BP 128 / 58 (auto/); pml 10:57 Pulse 88 MON; Pulse Ox 91% ; pml 10:57 BP 126 / 60 (auto/); pml 11:12 Pulse 82 MON; Pulse Ox 90% ; pml 11:12 BP 131 / 63 (auto/); pml 11:27 BP 127 / 55 (auto/); pml 11:27 Pulse 84 MON; Pulse Ox 89% ; pml 11:42 BP 117 / 56 (auto/); pml 11:55 Pulse 84 MON; Pulse Ox 89% ; pml 11:57 BP 122 / 63 (auto/); pml 12:09 Pulse 84 MON; Pulse Ox 90% ; pml 12:12 BP 117 / 66 (auto/); pml 12:27 BP 135 / 69 (auto/); pml 12:27 Pulse 84 MON; Pulse Ox 90% ; pml 12:42 Pulse 90 MON; Pulse Ox 91% ; pml 12:42 BP 137 / 63 (auto/); pml 12:57 Pulse 84 MON; Pulse Ox 90% ; pml 12:57 BP 124 / 59 (auto/); pml 13:12 Pulse 82 MON; Pulse Ox 90% ; pml 13:12 BP 124 / 64 (auto/); pml 13:27 Pulse 80 MON; Pulse Ox 90% ; pml 13:27 BP 121 / 56 (auto/); pml 13:41 Pulse 80 MON; Pulse Ox 91% ; pml 13:42 BP 133 / 60 (auto/); pml 13:57 Pulse 80 MON; pml 13:57 BP 130 / 60 (auto/); pml 14:12 Pulse 82 MON; pml 14:12 BP 124 / 55 (auto/); pml 14:21 Pulse 84 MON; pml 14:22 BP 120 / 58 (auto/); pml 14:24 BP 120 / 58; Pulse 83; Resp 18; Temp 98.3(TE); Pulse Ox 94% on R/A; Pain 2/10; ct3 14:27 Pulse 84 MON; Pulse Ox 90% ; pml 14:27 BP 144 / 65 (auto/); pml 14:42 Pulse 76 MON; Pulse Ox 86% ; pml 14:42 BP 137 / 67 (auto/); pml 14:57 Pulse 78 MON; Pulse Ox 88% ; pml 14:57 BP 132 / 69 (auto/); pml 15:09 BP 114 / 58; Pulse 78; Resp 18; Temp 98.3; Pulse Ox 97% on R/A; Pain 1/10; pml 16:15 BP 136 / 80; Pulse 76; Resp 18; Temp 97.9; Pulse Ox 97% ; Pain 1/10; pml 09:16 Body Mass Index 21.95 (54.43 kg, 157.48 cm) ct3 MDM: 09:31 IV Saline Lock ordered. fg 09:31 NS 0.9% 500 ml IV at bolus once ordered. fg 09:31 Undress patient appropriately for examination ordered. fg 09:31 Ondansetron 4 mg IVP once ordered. fg 09:31 morphine 2 mg IVP once ordered. fg 09:32 Basic Metabolic Profile Ordered. EDMS 09:32 CBC with Diff Ordered. EDMS 09:32 Liver Profile Ordered. EDMS 09:49 Chest, 1 View Ordered. EDMS 09:53 Financial registration complete. lg 10:20 [facility] was scanned into Our Security Team and attached to record. lg 14:12 Vital Signs ordered. fg 14:12 Ondansetron 4 mg IVP once ordered. fg 14:13 ECG WITH READING ER PHYS+CARDIAG ordered. EDMS 14:14 Urinalysis Ordered. EDMS 14:14 Urine Culture Ordered. EDMS 15:43 Admission / Observation Status ordered. EDMS 15:58 2 GRAM SODIUM DIET ordered. EDMS 15:59 BLOOD CULTURES Ordered. EDMS 16:25 HEMOGLOBIN A1C Ordered. EDMS 10/01 10:00 T-Sheet-- Draft Copy was scanned into Our Security Team and attached to record. gb 10:00 ECG/EKG was scanned into Our Security Team and attached to record. gb 10:00 PCR was scanned into Our Security Team and attached to record. gb 15:01 PCR was scanned into Our Security Team and attached to record. gb Administered Medications: 09/30 09:44 Drug: NS 0.9% 500 ml [sodium chloride 0.9 % injection solution] Route: IV; Rate: bolus; pml Site: right antecubital; 10:25 Follow up: IV Status: Completed infusion; IV Intake: 500ml pml 09:44 Drug: Ondansetron 4 mg [ondansetron HCl 2 mg/mL intravenous solution (2 mL)] Route: pml IVP; Site: right antecubital; 09:44 Drug: morphine 2 mg [morphine 2 mg/mL intravenous cartridge (1 mL)] Route: IVP; Site: pml right antecubital; 10:14 Follow up: Response: No significant change. pml 14:22 Drug: Ondansetron 4 mg [ondansetron HCl 2 mg/mL intravenous solution (2 mL)] Route: dy IVP; Site: right antecubital; Signatures: Dispatcher [employer] EDMS Camilla Ortiz, Reg Reg gb Gustavo Garner, Reg Reg lg Laya Mireles,PACO RN pml Reny Castro MD MD fg Youngs, David RN dy The chart was reviewed and I authenticate all verbal orders and agree with the evaluation and treatment provided.Corrections: (The following items were deleted from the chart) 15:58 09:33 NOTHING BY MOUTH+DIET ordered. EDMS EDMS Attachments: 10:20 [facility] Payment Agreement lg 10/01 10:00 T-Sheet-- Draft Copy gb 10:00 ECG/EKG gb Chart Complete MTDD
[2016-10-02] MEDS: **NOTE PATIENT COMMENT** MISC XX SCH (20:26)
[2016-10-02] MEDS: ATORVASTATIN 20 MG TAB PO SCH (20:28)
[2016-10-02] MEDS: GABAPENTIN 100 MG CAP PO SCH (20:28)
[2016-10-02] MEDS: traMADol 50 MG TAB PO PRN (20:29)
[2016-10-02 22:00] VITALS: BP 172/74
[2016-10-03] MEDS: KCL 40MEQ in NS 1000ML 1,000 ML IV SCH (05:16)
[2016-10-03] MEDS: HEPARIN SOD (PORCINE) 5000 UNITS/ML VIAL SC SCH (05:16)
[2016-10-03 06:00] VITALS: BP 154/65
[2016-10-03] MEDS: PANTOPRAZOLE 40MG TAB (PROTONIX) PO SCH (08:06)
[2016-10-03] MEDS: ASPIRIN 81 MG ENTERIC TAB PO SCH (08:06)
[2016-10-03] MEDS: traMADol 50 MG TAB PO PRN (08:06)
[2016-10-03 08:07] VITALS: BP 154/65
[2016-10-03] MEDS: **hydrALAZINE HCL** 25 MG TAB PO SCH (08:07)
[2016-10-03] MEDS: CARVedilol 3.125 MG TAB PO SCH (08:07)
--- NOTE | 2016-10-03 11:06 | DSES ---
DATE OF ADMISSION: 09/30/2016 DATE OF DISCHARGE: PRIMARY CARE PROVIDER: Dr. Berta Horner DISCHARGE DIAGNOSES: 1. Viral gastroenteritis. 2. Chronic kidney disease stage III to IV at baseline. 3. Right sided small cell lung cancer in the right upper lobe, referred to Dr. Sweet and Dr. De La Cruz by Dr. Raya. 4. Right nonfunctional kidney. 5. Gastroesophageal reflux disease (GERD). 6. Hypertension. 7. Coronary artery disease and aortic aneurysm, status post surgical repair. 8. Right lower rib and back pain secondary to nerve compression. 9. Hyperlipidemia. 10. Neuropathy. DISCHARGE MEDICATIONS: - aspirin 81 mg daily - atenolol 25 mg twice a day - atorvastatin 40 mg at bedtime - Nexium 20 mg daily - gabapentin 100 mg at bedtime - hydralazine 25 mg by mouth twice a day - hydrochlorothiazide 25 mg by mouth daily - lidocaine patch - multivitamin one tablet by mouth daily - Tramadol 50 mg by mouth three times a day as needed for pain HOSPITAL COURSE: This is a 76-year-old female who presented to the hospital with several episodes of dry heaves and vomiting, which started suddenly. On that day, she did eat outside along with her who also had similar symptoms but he also had several episodes of diarrhea. After these episodes, the patient started feeling very weak, lightheadedness, tremulous, so came to the emergency room. She never had any episodes of diarrhea. In the emergency department, she was treated with intravenous fluids and antiemetics, but continued to feel weak and tremulous, unable to walk steadily by herself, and also continued to have dry heaves, so was admitted to the hospital. In the hospital, the patient received intravenous fluids, bowel rest, antiemetics, and antireflux medications were continued. The patient's symptoms improved, and at present, the patient is functioning at baseline with stable vitals and without any complications and is going to be discharged home. The patient was recently diagnosed with right upper lobe mass and had a biopsy done on 09/26/2016, which shows small cell lung cancer. The patient follows with Dr. Raya, and as per her, she has been referred to Dr. De La Cruz and Dr. Sweet for chemotherapy and radiation therapy, which she is going to followup next week. PHYSICAL EXAMINATION: VITAL SIGNS: Temperature 97.9, pulse 72, respiratory rate 16, blood pressure 117/64, pulse oximetry 90% on room air. GENERAL: The patient is awake, alert, and oriented times three. Lying down in bed. In no acute distress. HEENT: Normocephalic, atraumatic. Moist mucous membranes. Anicteric eyes. CHEST: Clear to auscultation. CARDIOVASCULAR: S1, S2 regular. ABDOMEN: Soft, nontender. Bowel sounds present. EXTREMITIES: No edema. LABORATORY DATA: WBC 9.3, hemoglobin 13.9, platelets 200. Sodium 139, potassium 3.8, chloride 97, bicarbonate 26, BUN 31, creatinine 1.6, glucose 146, A1/c 5.8. Liver function tests normal. DISPOSITION: The patient is discharged home in stable condition. DISCHARGE INSTRUCTIONS: The patient is to followup with primary care provider in 1 to 2 weeks. The patient is to followup with Dr. Raya, Dr. Sweet and Dr. De La Cruz as per outpatient schedule. [facility]
--- NOTE | 2016-10-04 04:29 | DSES ---
DATE OF ADMISSION: 09/30/2016 DATE OF DISCHARGE: 10/03/2016 ADDENDUM TO DISCHARGE SUMMARY: Mrs. Womack's initial discharge order and summary was performed on 10/01/2016. Please see report #[id number]. Since admission, patient did show continued improvement of her symptoms; however, on the original anticipated discharge date, patient started to have recurrence of frequent nausea and vomiting and her discharge plan had to be postponed. Patient has continued on the management. On 10/03/2016, patient has resolution of her gastrointestinal (GI) symptoms and patient has returned to her baseline. Patient is discharged home with a recommendation to followup with primary care provider, Dr. Mirta Horner, in 1-2 weeks.
== END 2016-10-03 14:20 | disposition home or self-care (01) ==
LOC: M ED 09:03 → M ED INP 15:38 → M MS5PR 16:27
PROVIDERS: ADMIT Internal Medicine; ATTEND Internal Medicine
DX: K52.9 Noninfective gastroenteritis and colitis, unspecified (principal); N18.3 Chronic kidney disease, stage 3 (moderate); C34.11 Malignant neoplasm of upper lobe, right bronchus or lung; N28.9 Disorder of kidney and ureter, unspecified; K21.9 Gastro-esophageal reflux disease without esophagitis; E78.4 Other hyperlipidemia; I10 Essential (primary) hypertension; I25.10 Atherosclerotic heart disease of native coronary artery without angina pectoris; G60.9 Hereditary and idiopathic neuropathy, unspecified; Z79.82 Long term (current) use of aspirin; Z79.899 Other long term (current) drug therapy; Z87.891 Personal history of nicotine dependence
CPT/HCPCS: 36415; 71010; 80048; 80076; 83036; 85007; 85025; 85027; 87040; 93005; 96361; 96374; 96375; 96376; 99285; G0378; J2405

== ENCOUNTER → 2016-10-06 | Outpatient (CLI) | payer MEDICARE, OTHER ==
[~2016-10-06] MED LIST changes: +ASPI1TAB PO; +ATEN25TA PO; +ATOR40TA PO; +CARV3.12 PO; +GABA-279 PO; +HYDR-4266 PO; +HYDR25TAB PO; +LIDO5TD TOP; +NEXI20CA PO; +TRAM50TA2 PO; +VITMTA PO
--- NOTE | 2016-10-07 12:28 | RADONC ---
RADIATION ONCOLOGY CONSULTATION NOTE DATE: 10/07/2016 CHART NUMBER: [id number] DIAGNOSIS: Small cell lung cancer. STAGE: Extensive stage. ECOG PERFORMANCE STATUS: 4 CONSULTATION NOTE: Ms. Arteaga is a pleasant, 76-year-old white female with the diagnosis of what appears to be an extensive stage small cell lung carcinoma who is presenting to us today complaining of right hip and low back pain. She is also complaining of some right lower anterior rib pain as well as some right upper anterior lateral rib pain. The patient has not yet had a bone scan or an MRI of the brain. She has not yet been seen by medical oncology. HISTORY OF PRESENT ILLNESS: The patient was in her usual state of health until this pain developed. On 09/06/2016, a CT scan of the chest was undertaken, which revealed multiple pleural based nodules over the right lung in the upper lobe. There was also mediastinal and hilar lymphadenopathy noted. The largest pleural based mass was measured 5.3 cm x 4.2 cm x 3.0 cm. There were internal mammary nodes noted. A CT scan was done on 09/06/2016 that also showed some questionable pericaval lymph nodes and retrocaval lymph nodes. A biopsy was undertaken on 09/26/2016 of her right upper lobe mass and pathology revealed a small cell lung carcinoma. The patient is now complaining of right hip pain as well as rib pain. PAST MEDICAL HISTORY: The patient's past medical history is positive for hypertension, cataracts, and urinary tract infections as well as kidney issues. Apparently, she only has one functional kidney. She had a history of melanoma of the right arm. She has had dilation and curettage in the past. She had some type of left arm surgery. The patient has aortic stents in place since 2016. ALLERGIES: The patient has no known drug allergies. SOCIAL HISTORY: The patient had smoked one pack of cigarettes per day for 40 years. She quit in 1990. She does not abuse alcohol. FAMILY HISTORY: The patient has no knowledge of her family history. REVIEW OF SYSTEMS: The patient's review of systems is positive for physical limitations. She has trouble ambulating secondary to back and right hip pain. She reports dizziness. She has had anorexia with weight loss as well as some visual acuity disturbances. She has decreased energy. She of course complains of back and rib pain. The patient's review of systems is otherwise noncontributory. She denies nausea, vomiting, fevers, chills, night sweats, diplopia, headaches, chest pain other than from her ribs, urinary or bowel difficulties, or neurological problems other than her occasional dizziness. VITAL SIGNS: Oxygen saturation 91%, blood pressure 90/56, temperature 99.2, pulse 96, respirations 20. Height 5 feet 2 inches. Weight 122.2 pounds. PHYSICAL EXAMINATION: The patient is a frail, elderly white female who appears uncomfortable and is rubbing her right lower back and right hip. HEENT exam is normocephalic, atraumatic. Extraocular movements are intact. There is no palpable cervical, supraclavicular, infraclavicular or axillary lymphadenopathy present. Her lungs have distant breath sounds bilaterally. Her heart has a regular rate and rhythm. Her abdomen is benign with no hepatosplenomegaly, masses or tenderness. Neurologic exam is grossly intact as is the remainder of the physical examination. IMAGING STUDIES: I have personally reviewed the patient's CT scans of the abdomen and pelvis as well as lung, which show multiple pleural based lesions as well as scarring of her lungs. ASSESSMENT: The patient is presenting to us today with what appears to be extensive stage small cell lung carcinoma. I have ordered an MRI of the brain to review for possible metastatic disease. In addition, she is presenting to us today for consideration of palliative radiation therapy for what appear to be bone metastasis. These have not been documented and I have ordered a bone scan to be undertaken. In addition, the patient is scheduled to see a medical oncologist on Monday for further discussion. I will defer to our medical oncology expertise with regards to her ability to tolerate chemotherapy. Clearly, the primary treatment for small cell lung carcinoma is systemic therapy if the patient can tolerate it. I have scheduled the patient to return to me following completion of her bone scan and MRI for further discussion. By that time, we will have all the information necessary to evaluate whether or not she is a candidate for palliative radiation therapy for painful bone metastases. cc: MD Matt Zheng, DO [facility] *Dr. Mirta Horner, [facility]
== END ==
LOC: M ONCR 13:08
PROVIDERS: ATTEND Radiology Radiation Oncology
DX: C34.11 Malignant neoplasm of upper lobe, right bronchus or lung (principal)

== ENCOUNTER → 2016-10-10 | Outpatient (CLI) | payer MEDICARE, OTHER ==
--- NOTE | 2016-10-10 11:32 | REP ---
MR BRAIN WITHOUT CONTRAST: HISTORY: Lung cancer. An area of increased signal intensity on T2-weighted images is present in the mid brain. This represents an old lacunar infarction. Areas of increased signal intensity on T2-weighted images are present in the periventricular and subcortical white matter. This represents small vessel ischemic disease. There is no intraparenchymal hemorrhage, acute infarct, mass, or midline shift. The ventricular system and cortical sulci are dilated consistent with mild volume loss. There is no extracerebral collection. The visualized sinuses are clear. IMPRESSION: 1. 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 2. Small vessel ischemic disease. 3. Mild volume loss. Signed by Aguila Byrd MD 10/10/2016 11:41 A
== END ==
LOC: M RAD 09:42
PROVIDERS: ATTEND Radiology Radiation Oncology
DX: C34.90 Malignant neoplasm of unspecified part of unspecified bronchus or lung (principal)

== ENCOUNTER → 2016-10-11 | Outpatient (CLI) | payer MEDICARE, OTHER ==
[~2016-10-11] MED LIST changes: +AMLO10TA2 PO; +HYDR62TA PO; +TYLE325T5 PO
--- NOTE | 2016-10-11 14:57 | REP ---
REASON: History of lung carcinoma, assess for skeletal metastasis. COMPARISON EXAMINATIONS: None. After the intravenous administration of 21.1 mCi of technetium 99m MDP, a total body bone scan was performed. There is subtle diffuse increase in the shoulders, elbows, and wrists, also seen slightly in the hips, knees, and ankles, all consistent with mild degenerative disease. There is no abnormal focal increased or decreased radionuclide accumulation. There is absence of activity in the right renal fossa. IMPRESSION: 1. No scintigraphic evidence of skeletal metastasis. 2. Absence of activity in the right renal fossa. Previous CT examination of the abdomen, 09/06/2016, showed marked right renal atrophy. These findings need to be correlated clinically. 3. Evidence of mild degenerative changes, as described above. Signed by Yair Escobar DO 10/11/2016 03:49 P
== END ==
LOC: M RAD 10:08
PROVIDERS: ATTEND Radiology Radiation Oncology
DX: C34.90 Malignant neoplasm of unspecified part of unspecified bronchus or lung (principal)
CPT/HCPCS: 78306; A9503

== ENCOUNTER 2016-10-14 18:03 | Inpatient (IN) | payer MEDICARE, OTHER ==
[~2016-10-14] VITALS: Ht 157.5 cm; Wt 52.7 kg
[~2016-10-14 18:03] MED LIST changes: -AMLO10TA2 PO; -HYDR62TA PO; -TYLE325T5 PO
[2016-10-14] MEDS ORDERED: MORPHINE 2 MG/ML 1ML SYRINGE IV ONE (19:30)
[2016-10-14 20:03] LABS: BASO % 0.3 % (0.0-1.0); EOS # 0.1 K/mm3 (0.0-0.50); LARGE UNSTAINED CELL # 0.1 K/mm3 (0.0-0.4); LARGE UNSTAINED CELL % 1.1 % (0.0-4.0); LYMPH # 1.2 K/mm3 (1.5-4.5); LYMPH % 10.6 % (24.0-44.0); MEAN CORPUSCULAR HEMOGLOBIN 30.9 pg (27.0-33.0); MEAN CORPUSCULAR HGB CONC 35.1 g/dl (32.0-36.5); MEAN CORPUSCULAR VOLUME 87.9 fl (80.0-96.0); MONO # 0.7 K/mm3 (0.0-0.8); MONO % 6.7 % (0.0-5.0); NEUTROPHILS # 8.1 K/mm3 (1.8-7.7); NEUTROPHILS % 80.3 % (36.0-66.0); PLATELET COUNT, AUTOMATED 260 k/mm3 (150-450); RED CELL DISTRIBUTION WIDTH 13.7 % (11.5-14.5); WHITE BLOOD COUNT 10.1 K/mm3 (4.0-10.0)
[2016-10-14 20:26] LABS: ALBUMIN 3.5 GM/DL (3.2-5.2); ALBUMIN/GLOBULIN RATIO 1.09 (1.00-1.93); BILIRUBIN,DIRECT 0.3 MG/DL (0.0-0.2); BILIRUBIN,TOTAL 0.9 MG/DL (0.2-1.0); CREATININE FOR GFR 1.66 MG/DL (0.55-1.02); GLOMERULAR FILTRATION RATE 31.8 (>39); POTASSIUM SERUM 3.1 MEQ/L (3.5-5.1); TOTAL PROTEIN 6.7 GM/DL (6.4-8.2)
[2016-10-14] MEDS ORDERED: NS 500 ML IV ONE ×2 (20:45)
[2016-10-14 22:34] LABS: CALCIUM LEVEL 7.7 MG/DL (8.8-10.2); CREATININE FOR GFR 1.46 MG/DL (0.55-1.02); GLOMERULAR FILTRATION RATE 36.9 (>39)
[2016-10-14] MEDS ORDERED: ISOVUE-370 76% 100ML VIAL (Q9967) As Ordered ONE (23:27)
[2016-10-15] MEDS ORDERED: MORPHINE 2 MG/ML 1ML SYRINGE IV ONE
--- NOTE | 2016-10-15 00:10 | REPUSA ---
CLINICAL HISTORY: Dyspnea, exclude PE. TECHNIQUE: Multiple incremental axial, coronal and oblique images are obtained from the thoracic inle t to the upper abdomen. Intravenous contrast material was administered as per pulmonary embolism prot ocol. COMMENTS: 4.3 x 3.7 cm right hilar mass. Secondary obliteration of the corresponding aspect of the central bron chial tree. Secondary loss of volume in the right upper lobe. Moderate centrilobular emphysema. Moder ate right pleural effusion and passive atelectatic airspace disease of the right lung. Diffuse nodula rity and enhancing masses of the right pleura. Mild mediastinal shift to the left side. Moderate mediastinal and hilar lymphadenopathy. The largest lymph node in the mediastinum measures 3.5 cm. There is excellent opacification of pulmonary arterial system without evidence for pulmonary embolism . Aorta is of normal caliber without evidence for dissection or aneurysm. Aortic endovascular stent is noted. Celiac endovascular stent is noted. Diffuse irregularity of the hepatic contour. The bony structures are free of lytic or blastic lesions. Multilevel degenerative changes are seen in volving the visualized thoracolumbar spine. Scattered calcifications are seen involving the aorta and major branches compatible with atherosclero sis. IMPRESSION: No evidence for pulmonary embolism. Right hilar mass. Diffuse hilar and mediastinal lymphadenopathy. Obliteration of the right main bronchus. Loss of volume in the right upper lobe. Moderate right pleural effusion. Right pleural enhancing soft tissue masses. Emphysema. Thank you for your kind referral of this patient.
--- NOTE | 2016-10-15 00:20 | REPUSA ---
CLINICAL HISTORY: Abdominal pain. TECHNIQUE: Multiple axial, sagittal and coronal CT images were obtained through the abdomen and pelvi s after administration of intravenous contrast material. COMMENTS: 4.6 cm infrarenal abdominal aortic aneurysm isolated by means of aortoiliac stent graft. Aneurysmal i liac arteries. Hyperdense material is identified in the posterior aspect of the aneurysm adjacent to the graft. Possibly secondary to surgical material and atheromatous plaques. Diffuse upper abdominal, retroperitoneal lymphadenopathy. The largest lymph node measures a 3.5 cm. S evere chronic atrophy of the right kidney. Uncomplicated clonic diverticulosis. Minimal pancreatic ta il fat stranding. Unremarkable stent graft in the superior mesenteric and left renal arteries. The liver is of regular contour without mass or defect. There is no intra or extrahepatic biliary rick michela dilatation. The spleen is normal. The gallbladder is significantly distended. There is no evidenc e of adrenal mass. The left kidney demonstrate prompt and equal nephrograms. There is no evidence of renal or ureteral m ass. No renal or ureteral calculi are identified. There is no hydroureter or hydronephrosis. No evidence for appendicitis. There is no bowel wall thickening. No evidence for small or large erik l obstruction. There is no evidence of lymphadenopathy. There is no evidence of intrinsic or extrinsic bladder mass. Distended bladder. Right pleural effusion. Right pleural enhancing masses. The bony structures are free of lytic or blastic lesions. Multilevel degenerative changes are seen in volving the thoracolumbar spine. Scattered calcifications are seen involving the aorta and major bran ches compatible with atherosclerosis. IMPRESSION: Parenchymal liver disease. Upper abdominal and retroperitoneal lymphadenopathy. Aortoiliac stent grafts. Uncomplicated diverticulosis. Peripancreatic date fat stranding. Please correlate with lipase value. Right pleural effusion. Right pleural enhancing masses. Thank you for your kind referral of this patient.
[2016-10-15] MEDS ORDERED: POTASSIUM CHLORIDE 10 MEQ SR TABLET PO ONE ×2 (00:45→13:15)
[2016-10-15] MEDS ORDERED: HYDR62TA PO (01:19)
[2016-10-15] MEDS ORDERED: CARV3.12 PO (01:19)
[2016-10-15] MEDS ORDERED: TYLE325T5 PO (01:19)
[2016-10-15] MEDS ORDERED: AMLO10TA2 PO (01:19)
[2016-10-15] MEDS ORDERED: HYDR-4266 PO (01:19)
[2016-10-15] MEDS ORDERED: MORPHINE 2 MG/ML 1ML SYRINGE IV PRN (01:45)
[2016-10-15 02:30] VITALS: BP 150/67
[2016-10-15] MEDS: GABAPENTIN 100 MG CAP PO SCH ×2 (03:01→20:36)
[2016-10-15] MEDS: ATORVASTATIN 20 MG TAB PO SCH ×2 (03:01→20:36)
[2016-10-15] MEDS: CARVedilol 3.125 MG TAB PO SCH ×3 (03:02→20:36)
--- NOTE | 2016-10-15 03:04 | HPEPDOC ---
General Date of Admission Oct 15, 2016 at 01:23 Other Providers PCP: Dr. Sonia Horner Attending Physician: FRANCES DUKES DO Chief Complaint The patient is a 76-year-old female admitted with a reason for visit of Back Pain. History of Present Illness This is a 76-year-old female with a past medical history significant for hypercholesterolemia, hypertension, right lung cancer, and nonfunctional right kidney. She presents to the ED tonight with complaints of sustained 10 out of 10 pain in the right lower back radiating upwards to below her shoulder blades. Patient reports having pain starting at the end of August. The pain started as right anterior rib pain which moved to her lower back. Patient was prescribed tramadol, which she took for the the last several days, but discontinued yesterday. She said that she was feeling lightheaded/dizzy on the medication and was afraid to ambulate from the couch to the bathroom. Her had to provide her with a walker. Patient saw her primary care provider for her pain and they ordered a chest x- ray in August of this year. She was discovered to have a right lung mass which was worked up by pulmonology, Dr. Raya, as small cell carcinoma. Currently seeing oncology. Patient is scheduled to have a PET scan on 10/18/2016. Currently, her pain is 2 out of 10. Has not ambulated or sat upright, so she does not know if the morphine is causing her any dizziness or lightheadedness. In the emergency department, a CT of the abdomen and pelvis was completed which showed parenchymal liver disease, upper abdominal and retroperitoneal lymphadenopathy, uncomplicated diverticulosis, pancreatic fat stranding. A CT angiogram of the chest was also completed which showed no evidence of pulmonary embolism, right hilar mass, diffuse hilar and mediastinal lymphadenopathy, obliteration of the right main bronchus, loss of volume right upper lobes, moderate right pleural effusion, right pleural enhancing soft tissue masses, and emphysema. Home Medications Scheduled Amlodipine Besylate (Amlodipine Besylate) 10 Mg Tab 10 MG PO DAILY (Reported) Aspirin (Aspirin 81) 81 Mg Tab 81 MG PO DAILY (Reported) Atorvastatin Calcium (Atorvastatin Calcium) 40 Mg Tab 40 MG PO QHS (Reported) Carvedilol (Carvedilol) 3.125 Mg Tab 3.125 MG PO BID (Reported) Esomeprazole Magnesium Trihydr (Nexium) 20 Mg Cap 20 MG PO DAILY (Reported) Gabapentin (Gabapentin) 100 Mg Cap 100 MG PO QHS (Reported) Hydralazine HCl (Hydralazine HCl) 25 Mg Tab 25 MG PO DAILY (Reported) Hydrochlorothiazide (Hydrochlorothiazide) 6.25 Mg Quartertab 6.25 MG PO DAILY ( Reported) Multivitamins *[facility] STOCKED* (Thera M Plus *[facility] STOCKED*) 1 Tab Tab 1 TAB PO DAILY (Reported) Scheduled PRN Acetaminophen (Tylenol) 325 Mg Tab 650 MG PO Q4H PRN PRN PAIN (Reported) Lidocaine (Lidocaine) 5 % Pad 1 PATCH TOP DAILY PRN PRN PAIN (Reported) APPLY TO BACK Tramadol HCl (Tramadol HCl) 50 Mg Tab 50 MG PO TID PRN PRN PAIN (Reported) Allergies Coded Allergies: No Known Drug Allergy (Verified Allergy, Unknown, 11/12/12) Past Medical History Medical History 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 Has approximately [id number] history of smoking She denies any recreational drug or alcohol use. Lives at home with her . They do not have any pets. Patient signed MOLST form, is currently DNR/ DNI Review of Symptoms Constitutional: Denies: Chills, Fever, Night Sweats Eyes: Denies: Pain, Vision change ENT: Denies: Dysphagia, Ear Pain, Head Aches Skin: Denies: Breakdown, Lesions, Rash Pulmonary: Denies: Cough, Dyspnea Cardiovascular: Denies: Chest Pain, Lt Headedness, Orthopnea, Palpitations, Paroxysmal Noc. Dyspnea Gastrointestinal: Denies: Abdominal Pain, Diarrhea, Nausea, Vomiting Genitourinary: Denies: Dysuria, Frequency, Incontinence, Retention Hematologic: Denies: Bleeding Excessively, Bruising Musculoskeletal: Reports: Back Pain (right lower back into right upper back below the shoulder blade) Neurological: Denies: Change in speech, Confusion, Numbness, Weakness Physical Examination General Exam: Positive: Cooperative, No Acute Distress Eye Exam: Positive: Conjunctiva & lids normal, EOMI, PERRLA, Negative: Sclera icteric ENT Exam: Positive: Atraumatic, Mucous membr. moist/pink, Pharynx Normal Neck Exam: Positive: Supple, Negative: JVD, thyromegaly Chest Exam: Positive: Clear to auscultation Heart Exam: Positive: Normal S1, Normal S2, Rate Normal, Regular Rhythm, Negative: Murmurs, Rubs Abdomen Exam: Positive: Normal bowel sounds, Soft, Negative: Hepatospenomegaly, Tenderness Extremity Exam: Positive: Normal pulses, Negative: Clubbing, Cyanosis, Edema Skin Exam: Positive: Nl turgor and temperature Neuro Exam: Positive: Strength at 5/5 X4 ext Other physical findings MSK: Tenderness to palpation in the mid upper back on the right Vital Signs Vital Signs Label Value Date Time Patient Temperature 99.0 degrees F 10/15/16214 Temperature Source Temporal 10/15/16214 Pulse 88 10/15/16214 Respiratory Rate 16 bpm 10/15/16214 Blood Pressure Assessment 122/58 (79) 10/15/16214 Location Left Arm Source Automatic Cuff (NIBP) Position Supine Bedside Pulse Oximetry 91 % 10/15/16214 Laboratory Data Labs 24H Laboratory Tests 2 10/14/16 19:52: Aspartate Amino Transf (AST/SGOT) 50H, Alanine Aminotransferase (ALT/SGPT) 16, Alkaline Phosphatase 66, Total Bilirubin 0.9, Direct Bilirubin 0.3H, Albumin 3.5 , Albumin/Globulin Ratio 1.09, Anion Gap 12, White Blood Count 10.1H, Red Blood Count 5.02, Hemoglobin 15.5, Hematocrit 44.1, Mean Corpuscular Volume 87.9, Mean Corpuscular Hemoglobin 30.9, Mean Corpuscular Hemoglobin Concent 35.1, Red Cell Distribution Width 13.7, Platelet Count 260, Neutrophils (%) (Auto) 80.3H, Lymphocytes (%) (Auto) 10.6L, Monocytes (%) (Auto) 6.7H, Eosinophils (%) (Auto) 1.0, Basophils (%) (Auto) 0.3, Neutrophils # (Auto) 8.1H, Lymphocytes # (Auto) 1.2L, Monocytes # (Auto) 0.7, Eosinophils # (Auto) 0.1, Basophils # (Auto) 0.0, Calcium Level 9.0, Glomerular Filtration Rate 31.8L, Large Unclassified Cells # 0.1, Large Unclassified Cells % 1.1, Total Protein 6.7 10/14/16 22:09: Anion Gap 11, Calcium Level 7.7L, Glomerular Filtration Rate 36.9L, Blood Urea Nitrogen 29H, Creatinine 1.46H, Sodium Level 135L, Potassium Level 3.0L, Chloride Level 96L, Carbon Dioxide Level 28, Lipase 1364H CBC/BMP Laboratory Tests 10/14/16 19:52 Red Blood Count 5.02, Mean Corpuscular Volume 87.9, Mean Corpuscular Hemoglobin 30.9, Mean Corpuscular Hemoglobin Concent 35.1, Red Cell Distribution Width 13.7 , Neutrophils (%) (Auto) 80.3 H, Lymphocytes (%) (Auto) 10.6 L, Monocytes (%) ( Auto) 6.7 H, Eosinophils (%) (Auto) 1.0, Basophils (%) (Auto) 0.3, Neutrophils # (Auto) 8.1 H, Lymphocytes # (Auto) 1.2 L, Monocytes # (Auto) 0.7, Eosinophils # (Auto) 0.1, Basophils # (Auto) 0.0 10/14/16 22:09 Calcium Level 7.7 L RAD Interpretation STUDY: CT abd and CT angio chest Rad Actions: Report Reviewed RAD Interpretation: Other Result Comments: Problems (1) Back pain Status: Acute Problem Text: Admitting patient for pain control. Patient started on Percocet and morphine for her back pain. We will discontinue tramadol at this time as it was making patient lightheaded. PT and OT have been consult and for evaluation for home safety. (2) Small cell lung cancer Status: Acute Problem Text: Patient has cancer of the right lung. Patient has a scheduled PET scan for Monday, managed by oncology. (3) Hyperlipidemia Status: Chronic Problem Text: Continue statin. (4) Hypertension Status: Chronic Problem Text: Continue home medications. (5) GERD (gastroesophageal reflux disease) Status: Chronic Problem Text: Continue home medications. (6) CKD (chronic kidney disease), stage III Status: Chronic Problem Text: Managed by nephrology as outpatient. Patient has chronic kidney disease baseline at stage III to stage IV. Patient has history of right nonfunctioning kidney. Plan / VTE VTE Prophylaxis Ordered?: Yes TIM ZIMMER DO Oct 15, 2016 03:04
[2016-10-15 06:00] VITALS: BP 105/55
[2016-10-15 06:12] LABS: MEAN CORPUSCULAR HEMOGLOBIN 30.2 pg (27.0-33.0); MEAN CORPUSCULAR HGB CONC 34.3 g/dl (32.0-36.5); MEAN CORPUSCULAR VOLUME 87.8 fl (80.0-96.0); RED CELL DISTRIBUTION WIDTH 13.6 % (11.5-14.5); WHITE BLOOD COUNT 10.2 K/mm3 (4.0-10.0)
[2016-10-15 06:35] LABS: ALBUMIN/GLOBULIN RATIO 0.88 (1.00-1.93); BILIRUBIN,TOTAL 0.7 MG/DL (0.2-1.0); CALCIUM LEVEL 8.2 MG/DL (8.8-10.2); CREATININE FOR GFR 1.3 MG/DL (0.55-1.02); GLOMERULAR FILTRATION RATE 42.2 (>39); POTASSIUM SERUM 3.2 MEQ/L (3.5-5.1); TOTAL PROTEIN 6.4 GM/DL (6.4-8.2)
[2016-10-15] MEDS: amLODIPine 10 MG TAB PO SCH (09:00)
[2016-10-15] MEDS: **hydrALAZINE HCL** 25 MG TAB PO SCH (09:00)
[2016-10-15] MEDS: HYDROCHLOROthiazide 6.25MG PER 1/4TAB PO SCH (09:26)
[2016-10-15] MEDS: ASPIRIN 81 MG ENTERIC TAB PO SCH (09:26)
[2016-10-15] MEDS: ENOXAPARIN 30 MG/0.3 ML SYR (J1650) SC SCH (09:26)
[2016-10-15] MEDS: MULTIVITAMINS/MINERALS THERAP 1 TAB PO SCH (09:27)
[2016-10-15] MEDS: PANTOPRAZOLE 20 MG TAB PO SCH (09:27)
--- NOTE | 2016-10-15 13:09 | IPNPDOC ---
Text Note Date of Service The patient was seen on 10/15/16. NOTE Subjective: Patient is a 76-year-old female with right-sided lung cancer admitted for uncontrolled back pain, seen for hospitalist follow up. Patient says that she is doing better today, her pain is doing better. She currently rates her pain at 2/10 today. She is having some continued lightheadedness, nausea and tremor from tramadol. She denies any fevers, chills, sweats, chest pain/pressure, shortness of breath, difficulty breathing, abdominal pain, vomiting or diarrhea. Objective: Vital signs:Temperature 97.3, pulse 74, respiratory rate 18, blood pressure 122/ 64, pulse ox 91% on room air Gen.: Patient awake, alert and oriented, verbal and able to answer questions appropriately. Patient does not appear to be in any acute distress Heart: Regular rate and rhythm, normal S1-S2. No murmurs, rubs, clicks or gallops Lungs: Clear to auscultation bilaterally. No wheezes, rales or rhonchi Abdomen: Active bowel sounds, soft, nontender, no masses to palpation Laboratory data: CBC: White blood cells 10.2, hemoglobin and hematocrit 14.3/41.6, platelets 221 Chemistry: Sodium 132, potassium 3.2, chloride 95, carbon dioxide 25, BUN 25, creatinine 1.30, glucose 90, calcium 8.2 Liver profile: AST 42, ALT 13, alkaline phosphatase 56, total protein 6.4, albumin 3.0 Assessment: Patient is a 76-year-old female with small cell lung cancer, back pain. Patient reports that her pain is improved today. Plan: #1: Back pain: Patient currently prescribed morphine sulfate 1 mg IV every 4 hours when necessary, Percocet 5/325 mg 1 tablet by mouth every 6 hours when necessary. Patient encouraged to try oral pain medication as this would be something that if she could go home on. Continue morphine, Percocet, adjust pain medications as appropriate #2: Adverse effect of medication: Patient continuing to complain of some lightheadedness, nausea, tremor secondary to tramadol use #3: Hypokalemia: Patient with potassium of 3.2 today, patient given one time dose of 40 meq KCl #4: Small cell lung cancer: Patient scheduled for PET scan this Monday, currently under care of oncology #5: Hyperlipidemia: Continue atorvastatin 40 mg by mouth daily at bedtime #6: Hypertension: Continue amlodipine 10 mg by mouth daily, Coreg 3.125 mg by mouth twice a day, hydralazine 25 mg by mouth daily, hydrochlorothiazide 6.25 mg by mouth daily #7: GERD: Continue Protonix 20 mg by mouth daily #8: Stage III chronic kidney disease: At baseline, continue to monitor #9: DVT prophylaxis: Continue Lovenox 30 mg subcutaneously daily My preceptor for this patient encounter was physically present in the building during the encounter and was fully available. As needed, all aspects of the patient interview, examination, medical decision making process, and medical care plan development were reviewed and approved by the preceptor. Preceptor is aware and concurs with the plan as stated in the body of this note and will attest to such by his/her cosignature Geoff ABEL, I+O VSGeoff, I+O Laboratory Tests 10/14/16 19:52 Red Blood Count 5.02, Mean Corpuscular Volume 87.9, Mean Corpuscular Hemoglobin 30.9, Mean Corpuscular Hemoglobin Concent 35.1, Red Cell Distribution Width 13.7 , Neutrophils (%) (Auto) 80.3 H, Lymphocytes (%) (Auto) 10.6 L, Monocytes (%) ( Auto) 6.7 H, Eosinophils (%) (Auto) 1.0, Basophils (%) (Auto) 0.3, Neutrophils # (Auto) 8.1 H, Lymphocytes # (Auto) 1.2 L, Monocytes # (Auto) 0.7, Eosinophils # (Auto) 0.1, Basophils # (Auto) 0.0 10/14/16 22:09 Calcium Level 7.7 L 10/15/16 05:34 Red Blood Count 4.74, Mean Corpuscular Volume 87.8, Mean Corpuscular Hemoglobin 30.2, Mean Corpuscular Hemoglobin Concent 34.3, Red Cell Distribution Width 13.6 , Calcium Level 8.2 L, Aspartate Amino Transf (AST/SGOT) 42 H, Alanine Aminotransferase (ALT/SGPT) 13, Alkaline Phosphatase 56, Total Bilirubin 0.7, Total Protein 6.4, Albumin 3.0 L Vital Signs Date Time Temp Pulse Resp B/P Pulse Ox O2 Delivery O2 Flow Rate FiO2 10/15/16 09:00 74 122/64 10/15/16 06:00 97.3 18 91 Room Air I&O- Last 24 Hours up to 6 AM 10/15/16 06:00 Intake Total 1000 ml Output Total 700 ml Balance 300 ml KIMBERLY GALVEZ 4, 2017 13:09
[2016-10-15] MEDS: PERCOCET 5MG/325MG TAB PO PRN (13:49)
[2016-10-15 14:00] VITALS: BP 133/63
[2016-10-15] MEDS: LIDOCAINE 5% OINT 30 GM TOP SCH (20:37)
[2016-10-15 22:00] VITALS: BP 128/58
[2016-10-16 06:00] VITALS: BP 131/60
[2016-10-16 06:08] LABS: MEAN CORPUSCULAR HEMOGLOBIN 30.5 pg (27.0-33.0); MEAN CORPUSCULAR HGB CONC 34.8 g/dl (32.0-36.5); MEAN CORPUSCULAR VOLUME 87.7 fl (80.0-96.0); RED CELL DISTRIBUTION WIDTH 13.8 % (11.5-14.5)
[2016-10-16 06:25] LABS: ALBUMIN/GLOBULIN RATIO 0.83 (1.00-1.93); BILIRUBIN,TOTAL 0.7 MG/DL (0.2-1.0); CALCIUM LEVEL 8.5 MG/DL (8.8-10.2); CREATININE FOR GFR 1.36 MG/DL (0.55-1.02); POTASSIUM SERUM 3.6 MEQ/L (3.5-5.1); TOTAL PROTEIN 6.6 GM/DL (6.4-8.2)
[2016-10-16] MEDS: amLODIPine 10 MG TAB PO SCH (09:00)
[2016-10-16] MEDS: **hydrALAZINE HCL** 25 MG TAB PO SCH (09:00)
[2016-10-16] MEDS: NS 1,000 ML IV SCH ×2 (09:05→21:17)
[2016-10-16] MEDS: MULTIVITAMINS/MINERALS THERAP 1 TAB PO SCH (09:08)
[2016-10-16] MEDS: PANTOPRAZOLE 20 MG TAB PO SCH (09:08)
[2016-10-16] MEDS: ASPIRIN 81 MG ENTERIC TAB PO SCH (09:08)
[2016-10-16] MEDS: CARVedilol 3.125 MG TAB PO SCH ×2 (09:09→21:18)
[2016-10-16] MEDS: ENOXAPARIN 30 MG/0.3 ML SYR (J1650) SC SCH (09:10)
[2016-10-16] MEDS: MORPHINE 2 MG/ML 1ML SYRINGE IV PRN ×3 (09:55→21:19)
[2016-10-16 14:00] VITALS: BP 116/58
--- NOTE | 2016-10-16 14:32 | IPN ---
DATE OF VISIT: 10/16/2016 SUBJECTIVE: The patient is seen and examined in the room today. The patient complained about the back pain, and now she was complaining about the right upper abdominal pain. The patient stated the pain is 8/10. No overnight events reported. OBJECTIVE: VITAL SIGNS: Temperature is 96.9, pulse is 74, respiration 20, blood pressure is 131/60, pulse oximetry 93% in room air. GENERAL: Moderate distress secondary to right upper abdominal pain. Alert and oriented times three. HEENT: Normocephalic, atraumatic. Extraocular motor grossly intact. CARDIOVASCULAR: Positive S1, S2. Regular rate. LUNGS: Clear to auscultation bilaterally. ABDOMEN: Tenderness to palpation in the right upper quadrant. Bowel sounds present. EXTREMITIES: No edema. No cyanosis. LABORATORY DATA: WBC is 10, hemoglobin is 14.8, hematocrit 42.4, platelet count is 243. Sodium 136, potassium 3.6, chloride is 98, carbon dioxide is 25, BUN 27, creatinine 1.36, GFR is 40, fasting glucose 110, calcium is 8.7, total bilirubin is 0.7, AST 44, ALT 16, alkaline phosphatase is 63, total protein 6.6, albumin 3 , lipase is 1189. ASSESSMENT AND PLAN: 1. Acute pancreatitis. The patient will be nothing by mouth. The patient was on Percocet; however, per medical record, the patient has not been requesting pain medication, but when interview with the patient, the patient was complaining about the pain, and it seems like the patient has not notified our staff frequent enough to control the pain. Now, the patient will have morphine 2 mg intravenous (IV) every 2 hours, along with Percocet, to control her pancreatitis pain and also her musculoskeletal pain. 2. Nausea and vomiting secondary to the tramadol. Tramadol has been discontinued. The patient's pain management was switched to Percocet and morphine for now at this moment. 3. Small cell lung cancer. The patient will have a positron emission tomography (PET) scan scheduled for this Monday. 4. Hyperlipidemia. Atorvastatin nightly. 5. Hypertension. Amlodipine, Coreg, and hydralazine, hydrochlorothiazide. 6. Gastroesophageal reflux disease. On Protonix. 7. Stage III chronic kidney disease. Currently, at her baseline. 8. Deep venous thrombosis (DVT) prophylaxis. On Lovenox. MTDD
[2016-10-16] MEDS: ATORVASTATIN 20 MG TAB PO SCH (21:17)
[2016-10-16] MEDS: GABAPENTIN 100 MG CAP PO SCH (21:17)
[2016-10-16] MEDS: LIDOCAINE 5% OINT 30 GM TOP SCH (21:18)
[2016-10-16 22:00] VITALS: BP 146/63
[2016-10-17 06:00] VITALS: BP 140/62
[2016-10-17] MEDS: NS 1,000 ML IV SCH ×2 (06:10→22:15)
[2016-10-17] MEDS: PERCOCET 5MG/325MG TAB PO PRN ×3 (06:11→22:57)
[2016-10-17 06:25] LABS: MEAN CORPUSCULAR HEMOGLOBIN 30.8 pg (27.0-33.0); MEAN CORPUSCULAR HGB CONC 34.2 g/dl (32.0-36.5); MEAN CORPUSCULAR VOLUME 90.2 fl (80.0-96.0); WHITE BLOOD COUNT 8.1 K/mm3 (4.0-10.0)
[2016-10-17 06:42] LABS: ALBUMIN 2.8 GM/DL (3.2-5.2); ALBUMIN/GLOBULIN RATIO 0.85 (1.00-1.93); BILIRUBIN,TOTAL 0.7 MG/DL (0.2-1.0); CALCIUM LEVEL 7.9 MG/DL (8.8-10.2); CREATININE FOR GFR 1.09 MG/DL (0.55-1.02); GLOMERULAR FILTRATION RATE 51.7 (>39); POTASSIUM SERUM 3.6 MEQ/L (3.5-5.1); TOTAL PROTEIN 6.1 GM/DL (6.4-8.2)
[2016-10-17] MEDS ORDERED: LIDOCAINE 5% OINT 30 GM TOP SCH (08:19)
[2016-10-17] MEDS: **hydrALAZINE HCL** 25 MG TAB PO SCH (10:23)
[2016-10-17] MEDS: PANTOPRAZOLE 20 MG TAB PO SCH (10:24)
[2016-10-17] MEDS: CARVedilol 3.125 MG TAB PO SCH ×2 (10:24→20:46)
[2016-10-17] MEDS: amLODIPine 10 MG TAB PO SCH (10:24)
[2016-10-17] MEDS: ASPIRIN 81 MG ENTERIC TAB PO SCH (10:24)
[2016-10-17] MEDS: ENOXAPARIN 30 MG/0.3 ML SYR (J1650) SC SCH (10:25)
[2016-10-17] MEDS: MULTIVITAMINS/MINERALS THERAP 1 TAB PO SCH (10:25)
[2016-10-17] MEDS: MORPHINE 2 MG/ML 1ML SYRINGE IV PRN (10:26)
[2016-10-17] MEDS: LIDOCAINE 5% (LIDODERM) PATCH TD SCH (11:57)
--- NOTE | 2016-10-17 13:33 | REP ---
RIGHT UPPER QUADRANT ULTRASOUND: Real-time sonographic evaluation of the right upper quadrant is performed. Moderate sludge is seen in the gallbladder without gallstones. There is no gallbladder wall thickening or pericholecystic fluid. There is no intrahepatic or extrahepatic biliary dilatation, common bile duct measuring 6 mm in diameter. The liver demonstrates heterogeneous echotexture with no definite mass. The pancreas is not optimally seen due to overlying bowel gas. No gross pancreatic abnormality is seen. Right kidney is significantly atrophic measuring 6 cm in length with hyperechoic echotexture and a few small subcentimeter cysts. There is a right pleural effusion. IMPRESSION: Moderate sludge in the gallbladder without gallstones, gallbladder wall thickening, pericholecystic fluid or biliary dilatation. Signed by Sony Tong MD 10/17/2016 04:17 P
[2016-10-17 14:00] VITALS: BP 123/60
--- NOTE | 2016-10-17 16:38 | IPN ---
DATE: 10/17/2016 SUBJECTIVE: Patient is seen and examined in the room today. Patient stated her right abdominal pain has improved. However, patient is still complaining about the pain at the right lower back and right posterior ribs. She had those pains before the hospitalization. Patient still requires an elevated dose of pain medications. Patient is currently nothing by mouth and patient is on IV fluid for her pancreatitis. OBJECTIVE: VITAL SIGNS: Temperature is 96.7, pulse is 72, respirations 18, blood pressure is 140/62, pulse oximetry 93% in room air. GENERAL: Moderate distress secondary to significant right-sided back pain. Patient is alert and oriented times three. HEENT: Normocephalic, atraumatic. Extraocular motor grossly intact. CARDIOVASCULAR: Positive S1, S2. Regular rate. LUNGS: Clear to auscultation bilaterally. ABDOMEN: No tenderness to palpation of the right upper quadrant. Bowel sounds present. No rebound. No guarding. MUSCULOSKELETAL: Tenderness to the right lower back near the superior part of the pelvis. There is also significant tenderness just right below the right posterior ribs. EXTREMITIES: No lower extremity edema. No cyanosis. LABORATORY DATA: WBC is 8.1, hemoglobin 14.3, hematocrit is 40.2, platelet count is 212. Sodium is 138, potassium 3.6, chloride 104, carbon dioxide 25, BUN 19, creatinine 1.09 GFR is 51.7, fasting glucose of 88, calcium is 7.9, total bilirubin is 0.7, AST 44, ALT 13, alkaline phosphatase is 59, total protein is 6.1, albumin 2.8, lipase is 1663. ASSESSMENT AND PLAN: 1. Acute pancreatitis, most likely secondary to medication use. Patient is nothing by mouth. Patient is on IV morphine. Clinically, patient's right upper abdominal pain has shown significant improvement. Patient denies any alcohol use. We will followup with an abdominal ultrasound today. The potential drugs causing pancreatitis include the tramadol which causes significant reaction to the patient before the hospitalization. Tramadol has been on hold. 2. Nausea, vomiting and hand tremor, secondary to tramadol. Tramadol has been discontinued. Patient's adverse effect from tramadol has been resolved. Currently, we are treating patient for possible tramadol-induced pancreatitis. Patient is on morphine and Percocet for pain control. 3. Small cell lung cancer. The patient has a positron emission tomography (PET) scan scheduled this Monday. However, due to acute illness, patient is not able to have the PET scan done tomorrow. 4. Acute worsening back pain, possibly secondary to patient's malignancy. Currently, we are still adjusting patient's pain medication. We will get pain management for recommendations. 5. Hypertension, on Coreg, hydralazine, hydrochlorothiazide, and amlodipine. 6. Gastroesophageal reflux disease, on Protonix. 7. Stage III chronic kidney disease, at the baseline. 8. Deep venous thrombosis (DVT) prophylaxis, on Lovenox.
[2016-10-17] MEDS: GABAPENTIN 100 MG CAP PO SCH (20:47)
[2016-10-17] MEDS: ATORVASTATIN 20 MG TAB PO SCH (20:47)
[2016-10-17] MEDS: **NOTE PATIENT COMMENT** MISC XX SCH (20:47)
[2016-10-17 22:00] VITALS: BP 137/65
[2016-10-18] MEDS: PERCOCET 5MG/325MG TAB PO PRN ×3 (05:22→20:15)
[2016-10-18 06:00] VITALS: BP 120/58
[2016-10-18 07:11] LABS: MEAN CORPUSCULAR HEMOGLOBIN 30.6 pg (27.0-33.0); MEAN CORPUSCULAR HGB CONC 33.2 g/dl (32.0-36.5); MEAN CORPUSCULAR VOLUME 92.2 fl (80.0-96.0); WHITE BLOOD COUNT 8.2 K/mm3 (4.0-10.0)
[2016-10-18 07:25] LABS: ALBUMIN 2.6 GM/DL (3.2-5.2); ALBUMIN/GLOBULIN RATIO 0.81 (1.00-1.93); BILIRUBIN,TOTAL 0.7 MG/DL (0.2-1.0); CALCIUM LEVEL 7.7 MG/DL (8.8-10.2); CREATININE FOR GFR 1.07 MG/DL (0.55-1.02); GLOMERULAR FILTRATION RATE 52.8 (>39); POTASSIUM SERUM 3.7 MEQ/L (3.5-5.1); TOTAL PROTEIN 5.8 GM/DL (6.4-8.2)
[2016-10-18] MEDS: amLODIPine 10 MG TAB PO SCH (10:27)
[2016-10-18] MEDS: ENOXAPARIN 30 MG/0.3 ML SYR (J1650) SC SCH (10:27)
[2016-10-18] MEDS: LIDOCAINE 5% (LIDODERM) PATCH TD SCH (10:27)
[2016-10-18] MEDS: CARVedilol 3.125 MG TAB PO SCH ×2 (10:28→20:14)
[2016-10-18] MEDS: **hydrALAZINE HCL** 25 MG TAB PO SCH (10:28)
[2016-10-18] MEDS: PANTOPRAZOLE 20 MG TAB PO SCH (10:28)
[2016-10-18] MEDS: ASPIRIN 81 MG ENTERIC TAB PO SCH (10:28)
[2016-10-18] MEDS: MOM 30ML SUSPENSION UDC PO PRN (10:29)
[2016-10-18] MEDS: SENOKOT S TAB PO PRN (10:29)
[2016-10-18] MEDS: MULTIVITAMINS/MINERALS THERAP 1 TAB PO SCH (10:29)
[2016-10-18] MEDS: MIRALAX *UNIT DOSE* 17GM PACKET PO PRN (10:29)
[2016-10-18] MEDS: NS 1,000 ML IV SCH (10:31)
[2016-10-18 14:00] VITALS: BP 124/58
--- NOTE | 2016-10-18 16:45 | CR ---
DATE OF CONSULTATION: 10/18/2016 CONSULTATION REPORT FOR: Dr. Grimes CHIEF COMPLAINT: Right low back pain. HISTORY OF PRESENT ILLNESS: Flory is a 76-year-old female admitted for uncontrolled back pain. History of small cell carcinoma, right lung diagnosed August 2016. Rating pain level as 2/10. Receiving Percocet 5/325 one tablet which has been helpful, in review of pain diary, at reducing her pain quite dramatically. Also in place are Lidoderm patch to the right low back. Has adverse reaction to tramadol. REVIEW OF SYSTEMS: 11-point review of systems is pertinent for only complaints in the history of present illness (HPI). PAST MEDICAL HISTORY: 1. Hypercholesterolemia. 2. Hypertension. 3. Right lung carcinoma (CA). 4. Nonfunctional right kidney. 5. Chronic kidney disease, stage III. 6. Gastroesophageal reflux disease (GERD). 7. Coronary artery disease with aortic aneurysm, status post surgical repair. 8. Hyperlipidemia. 9. Restless leg syndrome. PAST SURGICAL HISTORY: 1. Aortic aneurysm repair. 2. Breast surgery for mastitis. 3. Dilation and curettage. 4. Left arm surgery, status post fracture. FAMILY HISTORY: No pertinent family history. SOCIAL HISTORY: The patient quit smoking in 1990. Has 30+ pack-year history of smoking. Denies recreational drug or alcohol use. Lives at home with her . PHYSICAL EXAMINATION: GENERAL: Awake, alert. The patient closes eyes during the majority of the visit. Laying on her left side. VITAL SIGNS: Temperature 97.8, pulse 76, respiratory rate 18, blood pressure 124/58, oxygen saturation is 91% on room air. CARDIAC: S1, S2. Normal rate and rhythm. RESPIRATORY: Lung sounds clear. Respirations nonlabored. INSPECTION OF SPINE: Tenderness noted in the right lumbar paraspinal region at the lower thoracic and upper lumbar region. EXTREMITIES: Extremities are warm to touch. No swelling. ASSESSMENT: 1. Right lower thoracic/upper lumbar pain. 2. Non-small cell carcinoma, right lung. PLAN: The patient seems to be responding to current pain medication of Percocet 5/325 as needed for severe pain episodes. Would recommend trial of discontinuing morphine IV. Continue gabapentin 100 mg and consider using this twice a day. If pain seems to be severe, may consider use of MSIR 15 mg tablet half tablet( 7.5MG) or full tablet as needed for severe pain episodes. Continue bowel regimen. Thank you for allowing us to participate in the care of your patient. If you have any questions or concerns, please do not hesitate to contact me. ROSA
--- NOTE | 2016-10-18 19:06 | IPN ---
DATE: 10/18/2016 SUBJECTIVE: The patient is seen and examined at that bedside. Chart has been reviewed. She still complains of severe pain on the back that only she lies down on the left side, abdominal discomfort has improved. She is requesting for liquid diet. Some fernando jakob this morning. No nausea or vomiting, fever or chills. Abdominal pain is described as achy on-and-off, but has not had any for the past 6-8 hours. The patient has not had any bowel movements, and bowel care was requested by the registered nurse (RN). OBJECTIVE: VITAL SIGNS: Temperature 97.1, pulse 73, respiratory rate 18, blood pressure 150/66, 92% on room air. GENERAL: Awake, alert, and oriented times three. Speaks in full sentences. HEENT: No jaundice or icterus, no pallor. LUNGS: Clear to auscultation. No wheezes, rales, or rhonchi. HEART: S1, S2. Sinus rhythm. ABDOMEN: Soft. Slightly tender right upper quadrant. No rebound, guarding. Positive bowel sounds. BACK: Right lower back some tenderness around the superior part of the pelvis. No significant tenderness right below the right posterior ribs. EXTREMITIES: No clubbing, cyanosis or any pitting edema. LABORATORY DATA: White count 8.2, hemoglobin 13, hematocrit 39, platelet count 189. Sodium 142, potassium 3.7, chloride 108, bicarbonate 23, BUN 20, creatinine 1.07 , glucose of 78. Lipase level of 1288. MICROBIOLOGY: Urine culture on 10/15/2016: No growth of clinical significance. ASSESSMENT AND PLAN: A 76-year-old female with history of right lung cancer, nonfunctional right kidney, hypertension, hypercholesterolemia, who presents to the emergency room with complaints of severe pain in the right lower back radiating to below her shoulder blades. She was found to have pancreatitis secondary to medications. Ultrasound gallbladder showed moderate sludge in the gallbladder without gall stones, gallbladder wall thickening, pericholecystic fluid or biliary dilatation. CT abdomen and pelvis shows aortoiliac stent, right peritoneal and upper abdominal lymphadenopathy, uncomplicated diverticulosis, right pleural effusion. Right pleural enhancing masses. CURRENT ISSUES: 1. Acute pancreatitis, most likely secondary to medication use. Gallbladder sludge is found with improving lipase level, on conservative management, on intravenous (IV) morphine. Requesting for advancement of diet. Will put on clears for now. Tramadol has been discontinued due to complaints of nausea, vomiting and tremors. Nutrition consult. Total parenteral nutrition (TPN) if needed if prolonged course. Monitor for clinical improvement. 2. Small cell lung cancer. PET scan was scheduled for Monday. Due to acute illness, unable to get this done today. 3. Worsening back pain, currently managed with pain medication. 4. Hypertension on Coreg, hydralazine, hydrochlorothiazide and Norvasc. MTDD
[2016-10-18] MEDS: GABAPENTIN 100 MG CAP PO SCH (20:14)
[2016-10-18] MEDS: ATORVASTATIN 20 MG TAB PO SCH (20:14)
[2016-10-18] MEDS: **NOTE PATIENT COMMENT** MISC XX SCH (20:15)
[2016-10-18 22:00] VITALS: BP 153/74
--- NOTE | 2016-10-18 23:00 | REPUSA ---
Clinical statement: Pain, swelling. Findings: Venous Doppler imaging of the left upper extremity was performed. The internal jugular vein compresses normally and demonstrates normal color Doppler flow. Normal venous wave forms are seen wi thin the subclavian vein. The axillary, brachial, and basilic veins compress normally and demonstrate normal color Doppler flow. There is a superficial venous thrombosis of the left cephalic vein. Sheron l augmentation is seen. Impression: No evidence of deep vein thrombosis in the left upper extremity. Superficial venous throm bosis of the left cephalic vein.
[2016-10-19] MEDS: PERCOCET 5MG/325MG TAB PO PRN (02:31)
[2016-10-19 06:00] VITALS: BP 137/66
[2016-10-19 06:13] LABS: MEAN CORPUSCULAR HEMOGLOBIN 30.6 pg (27.0-33.0); MEAN CORPUSCULAR HGB CONC 33.2 g/dl (32.0-36.5); MEAN CORPUSCULAR VOLUME 92.3 fl (80.0-96.0); RED CELL DISTRIBUTION WIDTH 14.2 % (11.5-14.5); WHITE BLOOD COUNT 9.7 K/mm3 (4.0-10.0)
[2016-10-19 06:30] LABS: ALBUMIN 2.6 GM/DL (3.2-5.2); ALBUMIN/GLOBULIN RATIO 0.74 (1.00-1.93); BILIRUBIN,TOTAL 0.7 MG/DL (0.2-1.0); CALCIUM LEVEL 8.2 MG/DL (8.8-10.2); CREATININE FOR GFR 1.13 MG/DL (0.55-1.02); GLOMERULAR FILTRATION RATE 49.6 (>39); TOTAL PROTEIN 6.1 GM/DL (6.4-8.2)
[2016-10-19] MEDS ORDERED: MORPHINE 30 MG TAB **MSIR PO PRN (09:00)
[2016-10-19] MEDS ORDERED: ENOXAPARIN 60 MG/0.6 ML SYR (J1650) SC SCH (09:00)
[2016-10-19] MEDS ORDERED: D5W 1,000 ML IV SCH (09:00)
[2016-10-19] MEDS ORDERED: FUROSEMIDE 100 MG/10 ML VIAL (J1940) IV ONE (09:45)
[2016-10-19] MEDS: ASPIRIN 81 MG ENTERIC TAB PO SCH (09:53)
[2016-10-19] MEDS: GABAPENTIN 100 MG CAP PO SCH ×2 (09:53→21:10)
[2016-10-19] MEDS: MULTIVITAMINS/MINERALS THERAP 1 TAB PO SCH (09:53)
[2016-10-19] MEDS: CARVedilol 3.125 MG TAB PO SCH ×2 (09:54→21:09)
[2016-10-19] MEDS: amLODIPine 10 MG TAB PO SCH (09:54)
[2016-10-19] MEDS: **hydrALAZINE HCL** 25 MG TAB PO SCH (09:54)
[2016-10-19] MEDS: LIDOCAINE 5% (LIDODERM) PATCH TD SCH (09:59)
[2016-10-19] MEDS: PANTOPRAZOLE 20 MG TAB PO SCH (10:15)
--- NOTE | 2016-10-19 10:41 | REP ---
Portable chest x-ray: Single view. History: Shortness of breath. Comparison chest x-ray is from September 30, 2016. Comparison is also made with recent chest CT study from October 14, 2016. Findings: There is progressive loss of aeration in the remaining right lung. Large right pleural effusion is seen. Right hemidiaphragm is obscured. There is increased density in the right paratracheal region of the mediastinum. There is mediastinal shift from right to the left which is new when compared with prior radiographs and recent CT. The amount of pleural fluid has increased. There is some progressive atelectasis in the right lung. The left lung is essentially clear. There is slight lateral pleural angle blunting on the left. Impression: Large hydrothorax on the right, increased in size and producing some tension in the right chest with shift of the mediastinum to the left, and widening of the intercostal spaces. Findings telephoned to the referring provider at the time of this dictation. Signed by Adryan Alexis MD 10/19/2016 12:26 P
[2016-10-19] MEDS: HYDROCHLOROthiazide 6.25MG PER 1/4TAB PO SCH (11:30)
[2016-10-19 13:30] VITALS: BP 144/65
[2016-10-19] MEDS ORDERED: FLUMAZENIL 0.5 MG/5 ML VIAL As Ordered ONE (14:28)
[2016-10-19] MEDS ORDERED: LIDOCAINE 1% MDV 20ML VIAL As Ordered ONE (14:29)
[2016-10-19] MEDS ORDERED: MIDAZOLAM INJ 2 MG/2 ML VIAL (J2250) As Ordered ONE (14:29)
[2016-10-19] MEDS ORDERED: NS 1,000 ML IV SCH (15:16)
[2016-10-19] MEDS ORDERED: NALBUPHINE HCL 10 MG/ML AMP (J2300) IV PRN (15:30)
[2016-10-19] MEDS ORDERED: NALOXONE INJ 0.4 MG/1 ML VIAL (J2310) IV PRN (15:30)
[2016-10-19] MEDS ORDERED: diphenhydrAMINE INJ 50MG/ML VIAL (J1200) IV PRN (15:30)
[2016-10-19] MEDS ORDERED: MORPHINE PCA 1MG/ML 100ML CADD IV PRN (15:30)
[2016-10-19] MEDS ORDERED: EPIDURAL/PCA KEYS XX PRN (15:30)
[2016-10-19 16:00] VITALS: BP 110/53
[2016-10-19] MEDS ORDERED: MIDAZOLAM INJ 2 MG/2 ML VIAL (J2250) IV STA (16:18)
[2016-10-19] MEDS ORDERED: LIDOCAINE 1% MDV 20ML VIAL IM ONE (16:30)
[2016-10-19] MEDS ORDERED: MIDAZOLAM INJ 2 MG/2 ML VIAL (J2250) IV ONE (16:30)
[2016-10-19] MEDS ORDERED: MORPHINE 4 MG/ML 1ML SYRINGE IV PRN (16:45)
[2016-10-19] MEDS ORDERED: PERCOCET 5MG/325MG TAB PO PRN (16:45)
--- NOTE | 2016-10-19 16:47 | ECGEPIP ---
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
[2016-10-19 17:52] LABS: RBC PLEURAL FLUID 65 (<10mm3 cells/uL); TNC PLEURAL FLUID 9067 cells/uL (0-20)
[2016-10-19 17:59] LABS: BF DIFF IF INDICATED? YES (NO)
[2016-10-19 18:00] LABS: LDH, BODY FLUID 407 U/L (NOT ESTABLISHED); TOTAL PROTEIN, BODY FLUID 3.5 G/DL (NOT ESTABLISHED)
--- NOTE | 2016-10-19 18:09 | IPN ---
DATE: 10/19/2016 Patient seen and examined at the bedside. Chart has been reviewed. Patient complains of severe shortness of breath this morning. Difficulty speaking with mild use of respiratory accessory muscles. She has decreased appetite, unable to clear a clear diet. Afebrile. No chills overnight. No nausea, vomiting, or diaphoresis. No chest pain or pressure. Temperature 97.1, pulse 76, respiratory rate 15, blood pressure 137/66, 92% on 2 liters nasal cannula. LUNGS: Diminished breath sounds on the right side. Left air entry is unequal. HEART: S1, S2, sinus rhythm. ABDOMEN: Soft, tender epigastric region, left upper quadrant. EXTREMITIES: Positive edema. LABORATORY DATA: White count 9.7, hemoglobin 13, hematocrit 39, platelet count 196. Sodium 142, potassium 4, chloride 109, bicarbonate 21, BUN 20, creatinine 1.13, glucose of 99. CK of 351, MB fraction 3.6, troponin less than 0.02. BNP at 228. Lipase level of 1158. IMAGING STUDY: Chest x-ray: Progressive loss of aeration in the remaining right lung. Large right pleural effusion. Increased density of right paratracheal region of the mediastinum with a mediastinal shift from right to left, which is new. Amount of pleural fluid has increased with progressive atelectasis in the right lung. Left lung is clear. ASSESSMENT AND PLAN: This is a 76-year-old female with diagnosis of right-sided lung cancer (CA), nonfunctional right kidney, hypertension, hypercholesterolemia, presents to the emergency room (ER) with complaints of severe pain on the rib and epigastric pain, radiating to the shoulder blade and right back. She was found to have pancreatitis secondary to medications and gallbladder sludging. CT abdomen and pelvis was otherwise unremarkable with right pleural effusion. During this admission patient received a significant amount of intravenous (IV) fluids for acute pancreatitis and abdominal pain with decreased oral intake. Lipase level was improving, but the patient is not tolerating the diet. She then complained of significant amount of shortness of breath and was found to have a hydrothorax. Appears to be large on the right with some tension on the right chest with shift of the mediastinum to the left and widening of the intercostal spaces. Patient was emergently transferred to intensive care unit (ICU) for chest tube placement. IMPRESSION: 1. Large hydrothorax on the right with tension on the right chest and shift of the mediastinum to the left and widening of intercostal spaces, most likely secondary to her lung CA as well as fluid hydration for pancreatitis. Dr. Castorena has been consulted for chest tube placement. Since this is her first pleural effusion, no plans for pleurodesis this time around. Defer to Dr. Castorena for chest tube management. Pleural fluid analysis. 2. Pancreatitis secondary to gallbladder sludging and medication induced, currently not tolerating her diet well. Patient may need total parenteral nutrition (TPN) down the line. Will hold off on further fluid hydration for now due to respiratory distress and increasing hydrothorax. 3. Dehydration. Creatinine is improving from 1.6 to 1.13 with acute kidney injury. Avoiding contrast studies. At this time, patient has IV fluids on hold secondary to significant hydrothorax and respiratory distress. 4. Left upper arm swelling with no evidence of deep vein thrombosis (DVT) and superficial vein thrombosis in the left cephalic vein. DVT prophylaxis for now. Monitor for worsening shortness of breath. 5. Small-cell lung CA in the right upper lobe, status post chemotherapy. Outpatient followup with her medical oncologist. Complicated by hydrothorax, most likely malignant effusion. Await pleural fluid evaluation. 6. Intractable pain. Pain management consult. 7. Hypertension, on Coreg, hydralazine, and Norvasc.
--- NOTE | 2016-10-19 18:37 | REP ---
CHEST: AP view of the chest is performed. There appears to be placement of a right chest catheter which enters the chest wall near the right costophrenic angle coursing medially, then superiorly along the right side of the mediastinum with the tip in the right apex. The recently noted fluid has essentially resolved. There is consolidation in the right upper lobe. No acute infiltrate is seen in the left lung. The apparent shift of the heart and mediastinal structure to the left appears to have resolved. IMPRESSION: Placement of right chest tube with essentially resolution of the right pleural fluid. No pneumothorax. Right upper lobe consolidation. Signed by Sony Tong MD 10/20/2016 04:39 P
[2016-10-19 19:46] VITALS: BP 127/62
[2016-10-19] MEDS: **NOTE PATIENT COMMENT** MISC XX SCH (21:00)
[2016-10-19 21:04] LABS: CC BF DIFF EXAM UNSPUN
[2016-10-19] MEDS: ATORVASTATIN 20 MG TAB PO SCH (21:09)
[2016-10-19 23:59] VITALS: BP 113/57
[2016-10-20] MEDS ORDERED: SLF 3 ML SYR IV PRN (04:30)
[2016-10-20 04:48] VITALS: BP 105/54
[2016-10-20] MEDS: SLF 3 ML SYR IV SCH ×3 (05:13→21:27)
[2016-10-20 06:09] LABS: MEAN CORPUSCULAR HEMOGLOBIN 30.8 pg (27.0-33.0); MEAN CORPUSCULAR HGB CONC 33.6 g/dl (32.0-36.5); MEAN CORPUSCULAR VOLUME 91.5 fl (80.0-96.0); WHITE BLOOD COUNT 9.9 K/mm3 (4.0-10.0)
[2016-10-20 06:36] LABS: ALBUMIN 2.5 GM/DL (3.2-5.2); ALBUMIN/GLOBULIN RATIO 0.71 (1.00-1.93); BILIRUBIN,TOTAL 0.7 MG/DL (0.2-1.0); CALCIUM LEVEL 8.2 MG/DL (8.8-10.2); CREATININE FOR GFR 1.32 MG/DL (0.55-1.02); GLOMERULAR FILTRATION RATE 41.4 (>39); POTASSIUM SERUM 3.9 MEQ/L (3.5-5.1)
[2016-10-20 07:52] VITALS: BP 133/61
[2016-10-20] MEDS ORDERED: PERCOCET 5MG/325MG TAB PO ONE (08:15)
[2016-10-20] MEDS ORDERED: MORPHINE 2 MG/ML 1ML SYRINGE IV ONE (08:15)
[2016-10-20] MEDS: PERCOCET 5MG/325MG TAB PO SCH ×2 (09:00→21:25)
[2016-10-20] MEDS: GABAPENTIN 100 MG CAP PO SCH ×2 (09:00→21:23)
[2016-10-20] MEDS: ENOXAPARIN 30 MG/0.3 ML SYR (J1650) SC SCH (09:26)
[2016-10-20] MEDS: LIDOCAINE 5% (LIDODERM) PATCH TD SCH (09:26)
[2016-10-20] MEDS: HYDROCHLOROthiazide 6.25MG PER 1/4TAB PO SCH (09:27)
[2016-10-20] MEDS: MULTIVITAMINS/MINERALS THERAP 1 TAB PO SCH (09:27)
[2016-10-20] MEDS: amLODIPine 10 MG TAB PO SCH (09:28)
[2016-10-20] MEDS: PANTOPRAZOLE 20 MG TAB PO SCH (09:28)
[2016-10-20] MEDS: ASPIRIN 81 MG ENTERIC TAB PO SCH (09:28)
[2016-10-20] MEDS: CARVedilol 3.125 MG TAB PO SCH ×2 (09:28→21:27)
[2016-10-20] MEDS: **hydrALAZINE HCL** 25 MG TAB PO SCH (09:28)
--- NOTE | 2016-10-20 09:42 | REP ---
TWO VIEW CHEST: Two views of the chest are performed and compared with prior study of 10/19/2016. Right upper lobe consolidation is again noted. There is right sided pleural thickening unchanged. There is mild patchy atelectasis or infiltrate in the right lung base. There is also mild atelectatic change in the left base with a small amount of left pleural fluid or thickening. The cardiomediastinal silhouette is unchanged. IMPRESSION: Right upper lobe consolidative opacity with mild diffuse pleural thickening and mild patchy atelectasis/infiltrate right lung base. Mild left basilar atelectatic change with small amount of left pleural fluid or thickening. Signed by Sony Tong MD 10/20/2016 04:41 P
[2016-10-20 12:00] VITALS: BP 149/61
--- NOTE | 2016-10-20 13:12 | CR ---
DATE OF CONSULTATION: 10/19/2016 REQUESTING PROVIDER: The patient is seen at the request of Dr. Garg. REASON FOR CONSULTATION: Pleural effusion, chest pain on the right side, and known small cell carcinoma. HISTORY OF PRESENT ILLNESS: The patient is a 76-year-old white female who started to develop a right sided lateral pain in her inferior chest this past August. This occasion, a chest x-ray, which has been followed by a CT scan where she was found to have a tumor of the right lung. This was followed by a needle biopsy, which showed her to have small cell carcinoma. Over the past week, she has become more increasingly short of breath and the pain in her left side has become excruciating. At first, she described it as a dull toothache last August, but has progressed to excruciating pain where she can only lay on her left side. She can hardly sit up because of her pain. She has had a slight cough, but no sputum production. No hemoptysis. Over the last few days, she has become more short of breath just at rest. She has no dysphagia, but she has no appetite and she states that she has lost about 10 pounds in the past two months. There have been no fever, chills, or sweats. PAST MEDICAL ILLNESSES: 1. Stage III kidney failure. 2. Right nonfunctional kidney. 3. Gastroesophageal reflux disease (GERD). 4. Hypertension. 5. Coronary artery disease with aortic aneurysm, status post surgical repair. 6. Hyperlipidemia. 7. Restless leg syndrome. PAST SURGICAL HISTORY: 1. Aortic aneurysm repair via minimally invasive stenting techniques. 2. Breast surgery in the remote past for mastitis. 3. Prior dilatation and curettage. 4. Left arm surgical reduction in the remote past. MEDICATIONS: At home: - amlodipine 10 mg daily - aspirin 81 mg daily - atorvastatin 40 mEq at night - carvedilol 3.125 mg twice a day - Nexium 20 mg daily - gabapentin 100 mg at night - hydralazine 25 mg daily - hydrochlorothiazide 6.25 mg daily - multivitamin one tablet daily TRAVEL HISTORY: They have traveled to [place] and to [place] in the remote past. OCCUPATIONAL HISTORY: She used to work at the [employer]. No asbestos exposures. No exposures to dogs, cats, birds. HABITS: Used to smoke one to two packs per day, [place], but quit nearly 30 years ago. Does not imbibe alcohol. REVIEW OF SYSTEMS: : CONSTITUTIONAL: See history of present illness. Without fevers, chills, sweats, night sweats. With weight loss. EYES: Without diplopia. Without transient monocular blindness. Without prior jaundice. NOSE: Without epistaxis. PULMONARY: See history of present illness. CARDIAC: See history of present illness. Has not had a myocardial infarction in the past. History of peripheral vascular disease as manifested by aortic aneurysm. Without anginal type pain, paroxysmal nocturnal dyspnea, or orthopnea. GASTROINTESTINAL: Without nausea or vomiting, diarrhea, constipation, melena, hematochezia, hematemesis, but does complain most recently of right upper quadrant pain. HEMATOLOGIC: Without easy bruisability or prolonged bleeding times. GENITOURINARY: Without dysuria or hematuria or prior history of renal stones. NEUROLOGIC: Without paresthesia, paralyses or seizures. PSYCHIATRIC: Without pathological anxieties, depressions, or psychosis. PHYSICAL EXAMINATION: GENERAL: Well developed, chronically ill looking woman in distress with pain in her posterior right side. Vital signs: Temperature 98.3, heart rate 91 and in sinus rhythm, respiratory rate of 16 without the use of accessory muscles, who is 92% saturated on 2 liters nasal cannula and whose blood pressure is 144/65. HEAD: Normocephalic. EYES: Pupils are equal, round and reactive to light. Extraocular muscles intact. Sclerae nonicteric. NOSE: Without deformity. MOUTH: Shows mucous membranes to be pink and moist. Lips and commissures without lesions. She has upper dentures in place. She is missing all of her lower teeth. NECK: Supple. There is no jugular venous distention (JVD). No subcutaneous emphysema. She has bilateral carotid bruits with 2+ carotid upstrokes. There is no thyromegaly or lymphadenopathy. LUNGS: Show markedly decreased breath sounds on the right side with a dull percussion note at the right lower hemithorax. There is mild E-to-A egophony on the right side in the lower extent of the hemithorax. Left side shows essentially normal vesicular sounds with some faint inspiratory crackles at the end of inspiration. CARDIAC: Examination is without murmurs, clicks, gallops or rubs. I cannot feel her point of maximum impulse (PMI). S1, S2 normal. ABDOMEN: Soft, nontender. Bowel sounds positive. There is no hepatosplenomegaly. There is no costovertebral angle tenderness on the left. I did not test on the right as she already has considerable pain on the right. EXTREMITIES: No pretibial edema. No calf tenderness. No differential swelling of the upper extremities. SKIN: Warm, dry and perfused without cyanosis or mottling, including that of the nail beds and knees. NEUROLOGIC: Shows II through XII intact. Gross motor and gross sensation intact. Gait is not tested. PSYCHIATRIC: Shows her to be awake, alert, oriented times three with appropriate mood and affect. INVESTIGATIONS: Her white count is 9.7 with a hemoglobin and hematocrit of 13.0 and 39.3 and a platelet count of 196. Chemistries show essentially normal electrolytes with a BUN and creatinine of 20 and 1.13 and glucose of 98. Calcium is 8.3. Albumin is 2.6. AST and ALT are 51 and 15, respectively. There is no admission chest x-ray on her. Her chest CT done under angiographic protocol on 10/14/2016 shows a right pleural effusion. The right upper lobe is completely consolidated, probably secondary to postobstructive consolidation. She has a large tumor eating through the chest wall anteriorly in the third intercostal space between ribs 3 and 4. There is diffuse tumor involvement of the posterior hemithorax inferiorly in the costophrenic angle. I do not see liver lesions. The adrenal glands look generous but have a normal configuration. There is considerable paratracheal lymphadenopathy. The tumor has grown considerably since her CT scan in August. IMPRESSION: 1. Small cell carcinoma. 2. Pleural effusion, no doubt malignant. 3. Hypertension. 4. Hyperlipidemia. 5. Peripheral vascular disease manifested by prior aortic aneurysm, which has been repaired. 6. Excruciating pain in the right hemithorax inferiorly. 7. Stage III renal disease. 8. Hyperlipidemia. 9. Restless leg syndrome. 10. Gastroesophageal reflux disease (GERD). PLAN AND DISCUSSION: In order to relieve her shortness of breath, I will drain her right chest. I was initially going to do this with a chest tube; however, this is no doubt malignant and she is in such pain and her tumor is growing so quickly, I do not think that this can be anything but a malignant pleural effusion. I am therefore going to place a PleurX catheter. I have indicated to her that I do not think that there is much of a chance of relieving her pain, but I can relieve her shortness of breath with PleurX catheter. She, her and I have had a very long talk about the long-term prognosis of her small cell carcinoma. She is in so much pain that she wishes at this point to seriously consider comfort measures only at hospice, although she has not committed. I would like her to get the opinion of oncology. I have spoken with Dr. Sweet regarding possible radiation for palliation; however, the field would damage the liver, which is highly sensitive to irradiation. The first line of therapy of course for small cell cancer is chemotherapy. I will continue to follow her over the next few days. I spoke with Dr. Garg and she is going to aggressively handle her pain control.
[2016-10-20 16:00] VITALS: BP 119/59
[2016-10-20] MEDS: PERCOCET 5MG/325MG TAB PO PRN (16:12)
--- NOTE | 2016-10-20 17:16 | IPN ---
DATE: 10/20/2016 Yesterday, patient complained of significant trouble breathing. X-ray shows large hydrothorax on the right with tension causing a shift to the left. Patient had an emergent thoracentesis by Dr. Robert Castorena. She complained of severe pain at that time but refused a morphine patient-controlled analgesia (PIN CLEANER) pump. This morning, patient still complains of pain, rated 2/10 when she is not moving and 6-7 out of 10 when she moves from [id number] and sits up to eat. Patient denies any worsening shortness of breath this morning. She is tolerating her diet well. No issues on telemetry. She remains sinus rhythm, ventricular rate of 85-94. Blood pressures maintain 105-127 systolic. PHYSICAL EXAMINATION: VITAL SIGNS: Temperature 97.1, pulse 85, respiratory rate 18, blood pressure 105/54, 97% on three liters nasal cannula. GENERAL: Patient is awake, alert, and oriented times three. No jaundice or icterus. No respiratory distress. No use of respiratory accessory muscle. Able to speak in full sentences. NECK: No jugular venous distention. No thyromegaly. No cervical lymphadenopathy. CHEST: Patient has a puncture from thoracentesis on the right side. LUNGS: Diminished breath sounds on the right with fine crepitations at the base and middle lobe. Left lung is clear. EXTREMITIES: No clubbing, cyanosis, or pitting edema. LABORATORY DATA: White count 9.9, hemoglobin 13, hematocrit 38, platelet count of 198. Sodium 143, potassium 3.9, chloride 105, bicarbonate 26, BUN 24, creatinine 1.32 , glucose of 82, lipase 848, total protein 6, albumin of 2.4, LDH of 247, total CK 351. A cytology pleural fluid is pending. Chest x-ray on 10/19/2016 shows right chest tube with resolution of right pleural effusion. No pneumothorax. Right upper lobe consolidation. ASSESSMENT AND PLAN: This is a 76-year-old female with history of small-cell lung cancer (CA) undergoing chemotherapy, currently with poor functional status, nonfunctional right kidney, hypertension, hypercholesterolemia, who presented to the emergency room (ER) with severe pain in the rib, epigastric pain radiating to the shoulder blade and back. She was found to have pancreatitis secondary to medications, gallbladder sludging. CT abdomen and pelvis and CT chest shows pulmonary embolism but with gallbladder sludging. Patient complained of severe shortness of breath and was found to have a large right hydrothorax requiring thoracentesis at the bedside and transfer to progressive care unit (PCU). CURRENT ISSUES: 1. Large hydrothorax with shift of the mediastinum to the left and widening of intercostal spaces, most likely secondary to lung CA and fluid hydration for pancreatitis. Dr. Castorena has been consulted for thoracentesis. Would benefit from pleurodesis. Awaiting cytology report but most likely malignant. Patient has poor functional status, most likely will not be appropriate for chemotherapy as outpatient. 2. Pancreatitis secondary to gallbladder sludging and medication induced. Currently tolerating liquids. Lipase level is improving. Hold off on total parenteral nutrition (TPN) in light of recent hydrothorax and fluid hydration due to recent fluid accumulation and worsening hypoxia. 3. Dehydration. Worsening creatinine today due to Lasix given yesterday. No IV fluids at this time due to recent hydrothorax. Monitor input and advance diet to full liquids. 4. Left upper arm swelling. No evidence of deep vein thrombosis (DVT), superficial vein thrombosis in the left cephalic vein. DVT prophylaxis with Lovenox for now. 5. Small-cell lung cancer, right upper lobe, status post chemotherapy. Patient is currently most likely not a candidate for chemotherapy due to poor functional status at this time. Awaiting pleural fluid cytology. Will consult Dr. Farzana Euceda to discuss prognosis and hospice . 6. Intractable pain. Pain management has been consulted. Patient is refusing morphine patient-controlled analgesia (PIN CLEANER) pump at this time. I have discussed with her the need for maintenance pain control. Therefore, I will place her on Percocet one tablet by mouth twice a day with IV morphine and oral Percocet as needed for breakthrough pain and bowel regimen. 7. Hypertension. Controlled with hydralazine, hydrochlorothiazide, Norvasc, and Coreg. MTDD
--- NOTE | 2016-10-20 20:16 | RO ---
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 POSTPROCEDURE DIAGNOSIS: Probable malignant right pleura effusion. PROCEDURE: Insertion of tunneled PleurX catheter. SURGEON: Dr. Robert Castorena CONVEYOR [employer]T INSTALLER: ANESTHESIA: FINDINGS: At the end of the procedure, nearly 1500 mL of serosanguineous fluid was withdrawn via the vacuum bottles. DESCRIPTION OF PROCEDURE: Under satisfactory moderate sedation eventually achieved with 3 mg of Versed, the patient was prepped and draped in the usual sterile fashion. Entry and exit wounds were selected. The pleural fluid was found in the approximate sixth intercostal space. A wire was then placed. Incision was made along the abdomen and over the wire and a tunnel was then created with the catheter being pulled through the tunnel. The tract via the wire was dilated by Seldinger technique and a peel-away introducer was placed. Catheter was threaded through the peel-away introducer and placed into the chest. The sewing collar was then promptly positioned. The entry wound was closed with running #4-0 Monocryl subcuticular suture and the catheter was secured to the abdominal wall with a #3-0 silk suture, also reapproximating the exit wound incision. The patient was then drained for the above fluid. The catheter was dressed. The patient tolerated the procedure well. A chest x-ray is pending. [facility]
[2016-10-20 20:53] VITALS: BP 126/60
[2016-10-20] MEDS: **NOTE PATIENT COMMENT** MISC XX SCH (21:00)
[2016-10-20] MEDS: ATORVASTATIN 20 MG TAB PO SCH (21:23)
[2016-10-20 23:36] VITALS: BP 128/58
--- NOTE | 2016-10-20 23:56 | IPN ---
DATE: 10/20/2016 Mrs. Womack is now one day status post insertion of the PleurX catheter. Surprisingly that has relived a whole lot of her pain, but she still has some hip and posterior chest pain. She is doing much better today than she did yesterday. We jarocho off 1800 mL of fluid from her yesterday. Her vital signs show a maximum temperature (T max) of 98.4 with a heart rate that ranges between 86 and 85 and is sinus rhythm, a respiratory rate that is constant at 18, who is 98% saturated on 2 liters nasal cannula. Blood pressure is ranging between 133/61 to 149/61. Her intake and output over the past 24 hours has been recorded as 440 in and 3050 out for a negativity of 2600 mL. Most of that is represented by chest tube output through the PleurX bottles. Weight today is 53 kg compared to 54 kg on 10/15/2016. PHYSICAL EXAMINATION: Her lungs show equal breath sounds on either side. There is inspiratory coarse rhonchi on the right side near the base. Percussion notes are full to the diaphragm. Cardiac exam is without murmurs, clicks, gallops or rubs. I cannot feel her point of maximum impulse (PMI). S1, S2 are normal. Abdomen is soft and nontender. Bowel sounds are positive. There is no hepatomegaly. No costovertebral angle tenderness. Extremities show no pretibial edema. No calf tenderness. No differential swelling of the upper extremities. Skin is warm, dry and perfused without cyanosis or mottling, including that of the nail beds and the knees. Neck is supple. There is no jugular venous distention, no subcutaneous emphysema. Trachea is midline. Mouth shows her mucous membranes to be pink and moist. Lips and commissures without lesions. There is no thrush. Eyes show her pupils to be equal and reactive. Extraocular motions intact. Sclerae anicteric. Neurologic shows II-XII intact along with gross motor and gross sensation intact. Gait is not tested. Psychiatric shows her to be awake and alert, oriented times three with appropriate mood and affect and conversational. Her white count today is 9.9 with a hemoglobin and hematocrit of 13.0 and 38.7 and a platelet count of 198. Chemistries show normal electrolytes with a BUN and creatinine of 24 and 1.32, glucose of 113, and a calcium of 8.2. AST and ALT are 51 and 14 respectively. Albumin is 2.5. Pathology is still pending on the cell block. Her pleural fluid has been returned with a pH of 7.41 with a glucose of 91, an LDH of 407 with a corresponding serum LDH of 247. She has 9000 nucleated cells, 90% of which are lymphocytes. This, therefore, looks to be a lymphocytic exudative effusion, most probably malignant. Her chest x-ray today is vastly improved. She still has the upper lobe collapse and consolidation. Costophrenic angle today on the PA film looks much sharper with just some minor blunting. The PleurX catheter looks to be in good place. Lateral chest x-ray also shows clearing of the right pleural effusion. She has some residual fluid in the major fissure. IMPRESSION: 1. Small cell carcinoma. 2. Pleural effusion, no doubt malignant. 3. Hypertension. 4. Hyperlipidemia. 5. Peripheral vascular disease manifested by prior aortic aneurysm, which has been repaired endovascularly. 6. Excruciating pain in the right hemithorax inferiorly, much improved. 7. Stage III renal disease. 8. Hyperlipidemia. 9. Restless leg syndrome. 10. Gastroesophageal reflux disease. PLAN AND DISCUSSION: Her pain is much better today, and she may reconsider chemotherapy. However, she really does need to talk to the oncologist, and I have asked Dr. Garg, her hospitalist primary care physician to contact oncology to see her before she leaves the hospital. Her decision is going to be hospice and comfort care versus aggressive treatment. She is still very much on the fence, and she really does need to hear the pros and cons from oncology. We do not need to drain her pleural fluid today as her costophrenic angles are sharp. Will continue to follow her x-rays, and I suspect that we will start draining her fluid every 3-4 days or as she becomes symptomatic.
[2016-10-21 02:15] VITALS: BP 135/64
[2016-10-21 06:00] VITALS: BP 125/58
[2016-10-21] MEDS: SLF 3 ML SYR IV SCH ×3 (06:00→21:14)
[2016-10-21 06:28] LABS: MEAN CORPUSCULAR HEMOGLOBIN 30.9 pg (27.0-33.0); MEAN CORPUSCULAR HGB CONC 33.7 g/dl (32.0-36.5); MEAN CORPUSCULAR VOLUME 91.7 fl (80.0-96.0); RED CELL DISTRIBUTION WIDTH 14.2 % (11.5-14.5); WHITE BLOOD COUNT 6.7 K/mm3 (4.0-10.0)
--- NOTE | 2016-10-21 06:35 | ECHO ---
DATE OF PROCEDURE: 10/20/2016 REFERRING PHYSICIAN: Dr. Rhina Garg. INDICATION: Dyspnea. HEIGHT: 158 cm. WEIGHT: 54 kg. MEASUREMENTS: Left atrium: 2.7 cm Aortic root: 3.2 cm Ventricular septum: 0.94 cm Posterior wall: 0.91 cm Left ventricle diastole: 3.9 cm LVOT: 2.0 cm Proximal ascending aorta: 2.9 cm Inferior vena cava: 1.6 cm DOPPLER MEASUREMENTS: Very mild aortic regurgitation. Aortic valve velocity: 93.4 cm/s LVOT velocity: 85.2 cm/s Mitral E velocity: 49.0 cm/s Mitral A velocity: 65.6 cm/s Mitral deacceleration time: 215 ms Very mild tricuspid regurgitation. Estimated right ventricular systolic pressure 26 mmHg assuming an atrial pressure of 5 mmHg. Pulmonary artery systolic pressure 36 mmHg by pulmonary acceleration time method. MITRAL ANNULAR TISSUE DOPPLER: E-prime septal: 3.7 cm/s E-prime lateral: 3.6 cm/s DESCRIPTION: Rhythm was sinus. No pericardial effusion. This was a technically difficult echocardiogram. This was a 2D, M-mode, color flow Doppler and pulsed wave Doppler examination and included mitral annular tissue Doppler. CONCLUSIONS: 1. Normal left ventricle internal dimensions and wall thickness. No regional wall motion abnormalities. Normal LV systolic function. LVEF 65% by visual estimate. Grade 1 LV diastolic dysfunction (impaired relaxation filling pattern). 2. Suggestive of mild elevation of pulmonary artery systolic pressure. 3. Moderate aortic valve sclerosis. No aortic stenosis. Very mild aortic regurgitation. Aortic valve was 3-cusp. 4. Technically difficult echocardiogram.
[2016-10-21 06:51] LABS: ALBUMIN 2.3 GM/DL (3.2-5.2); ALBUMIN/GLOBULIN RATIO 0.7 (1.00-1.93); BILIRUBIN,TOTAL 0.5 MG/DL (0.2-1.0); CALCIUM LEVEL 8.2 MG/DL (8.8-10.2); CREATININE FOR GFR 1.11 MG/DL (0.55-1.02); GLOMERULAR FILTRATION RATE 50.6 (>39); POTASSIUM SERUM 3.4 MEQ/L (3.5-5.1); TOTAL PROTEIN 5.6 GM/DL (6.4-8.2)
[2016-10-21] MEDS: HYDROCHLOROthiazide 6.25MG PER 1/4TAB PO SCH (09:00)
[2016-10-21] MEDS: GABAPENTIN 100 MG CAP PO SCH ×2 (09:00→21:13)
[2016-10-21] MEDS: PERCOCET 5MG/325MG TAB PO SCH ×2 (09:59→21:13)
[2016-10-21] MEDS: MULTIVITAMINS/MINERALS THERAP 1 TAB PO SCH (09:59)
[2016-10-21] MEDS: LIDOCAINE 5% (LIDODERM) PATCH TD SCH (09:59)
[2016-10-21] MEDS: ENOXAPARIN 30 MG/0.3 ML SYR (J1650) SC SCH (09:59)
--- NOTE | 2016-10-21 09:59 | REP ---
CHEST, TWO VIEWS: Two views of the chest are performed and compared to a prior study of 10/20/2016. Right upper lobe consolidative opacity, right basilar opacity are unchanged. Small amount of right pleural fluid appears essentially unchanged There is a right chest catheter again noted. There is no pneumothorax. Left basilar opacity and blunting of the left costophrenic angle is unchanged. IMPRESSION: Stable exam. Signed by Sony Tong MD 10/21/2016 04:56 P
[2016-10-21] MEDS: ASPIRIN 81 MG ENTERIC TAB PO SCH (10:00)
[2016-10-21] MEDS: **hydrALAZINE HCL** 25 MG TAB PO SCH (10:00)
[2016-10-21] MEDS: PANTOPRAZOLE 20 MG TAB PO SCH (10:00)
[2016-10-21] MEDS: amLODIPine 10 MG TAB PO SCH (10:00)
[2016-10-21] MEDS: CARVedilol 3.125 MG TAB PO SCH ×2 (10:00→21:13)
[2016-10-21] MEDS ORDERED: POTASSIUM CHLORIDE 10 MEQ SR TABLET PO ONE (12:30)
[2016-10-21] MEDS ORDERED: SCOPOLAMINE 1.5 MG TRANSDERMAL TD PRN (12:45)
[2016-10-21] MEDS ORDERED: ATROPINE SULFATE 1% OP SOLN 2 ML BTL SL PRN (12:45)
[2016-10-21 14:00] VITALS: BP 126/61
[2016-10-21] MEDS: PERCOCET 5MG/325MG TAB PO PRN (16:04)
[2016-10-21 20:00] VITALS: BP 127/60
[2016-10-21] MEDS: ATORVASTATIN 20 MG TAB PO SCH (21:12)
[2016-10-21] MEDS: **NOTE PATIENT COMMENT** MISC XX SCH (21:14)
[2016-10-22] MEDS: PERCOCET 5MG/325MG TAB PO PRN ×2 (03:08→17:54)
[2016-10-22] MEDS: SLF 3 ML SYR IV SCH ×3 (05:39→20:04)
--- NOTE | 2016-10-22 08:09 | IPN ---
DATE: 10/21/2016 The patient is seen and examined at the bedside. Chart has been reviewed. The patient complains of severe pain when she ambulates and changes position, but 1 out of 10 pain scale when she is recumbent. Denies any worsening shortness of breath. Not tolerating her diet well, but is asking for it to be advanced. The patient is open to hospice. Per Dr. Euceda, the patient is agreeable to comfort measures only, but will discuss with her son and will meet with hospice hopefully in the next few days. VITAL SIGNS: Temperature 97.4, pulse 78, respiratory rate 18, blood pressure 125/58, 92% on room air. LUNGS: Diminished on the right with coarse breath sounds. Left is clear. HEART: S1, S2. Sinus rhythm. ABDOMEN: Soft, nontender, nondistended. EXTREMITIES: No pitting edema. LABORATORY DATA: CBC and metabolic panel have been reviewed, notable for a potassium of 3.4, lipase of 998. ASSESSMENT AND PLAN: This is a 76-year-old female with a history of small cell lung cancer, status post chemotherapy, presents with rib pain, epigastric pain and found to have pancreatitis secondary to gallbladder sludging and medications with known history of nonfunctional right kidney, hypertension, hypercholesterolemia, was being treated for pancreatitis with IV fluids, developed worsening shortness of breath and was found to have a large hydrothorax requiring emergent thoracentesis. The patient has opted for hospice referral. She is currently DO NOT RESUSCITATE due to advanced small cell lung cancer. IMPRESSION: 1. Left hydrothorax from the mediastinum to the left with widening of the intercostal space, resolved, secondary to lung cancer and fluid hydration for pancreatitis. The patient has PleurX catheter for comfort. She is not a good candidate for chemotherapy due to poor functional status, per Dr. Euceda. No plans for chemotherapy in the future. The patient is referred to hospice. 2. Pancreatitis secondary to gallbladder sludging and medication induced. Tolerating liquids. Still with pain. Currently off of IV fluids due to recent hydrothorax and hypoxia. The patient is currently comfort measures only and hospice, potentially hospice house on Monday if space is available. Social work and family to coordinate with hospice regarding discharge planning. 3. Dehydration. Advance diet to mechanical soft. Currently comfort measures only and therefore we will continue with present management. 4. Small cell lung cancer right upper lobe, status post chemotherapy. Poor functional capacity at this time. Not a candidate for chemotherapy. Referred to hospice. Comfort measures only, DO NOT RESUSCITATE.
[2016-10-22] MEDS: MULTIVITAMINS/MINERALS THERAP 1 TAB PO SCH (09:00)
[2016-10-22] MEDS: GABAPENTIN 100 MG CAP PO SCH ×2 (09:00→20:03)
[2016-10-22] MEDS: amLODIPine 10 MG TAB PO SCH (09:00)
[2016-10-22] MEDS: CARVedilol 3.125 MG TAB PO SCH ×2 (09:00→20:03)
[2016-10-22] MEDS: ASPIRIN 81 MG ENTERIC TAB PO SCH (09:00)
[2016-10-22] MEDS: ENOXAPARIN 30 MG/0.3 ML SYR (J1650) SC SCH (09:00)
[2016-10-22] MEDS: HYDROCHLOROthiazide 6.25MG PER 1/4TAB PO SCH (09:00)
[2016-10-22] MEDS: **hydrALAZINE HCL** 25 MG TAB PO SCH (09:00)
[2016-10-22] MEDS: PERCOCET 5MG/325MG TAB PO SCH ×2 (09:09→20:03)
[2016-10-22] MEDS: PANTOPRAZOLE 20 MG TAB PO SCH (09:09)
[2016-10-22] MEDS: LIDOCAINE 5% (LIDODERM) PATCH TD SCH (09:09)
--- NOTE | 2016-10-22 10:46 | REP ---
REASON: Followup COMPARISON: 10/21/2016 at 9:15 a.m. There is a large opacity in the right upper lung field status quo. There is no change in the cardiomediastinal silhouette. There are basilar opacities, status quo with bilateral CP angle blunting. There is thickening of the major fissure, which is unchanged. There is no change in the osseous structures. The right-sided thoracotomy tube is unchanged. IMPRESSION: No change. Signed by Yair Escobar DO 10/22/2016 11:30 A
--- NOTE | 2016-10-22 15:22 | IPN ---
DATE: 10/21/2016 Mrs. Womack is still complaining of back pain and right lower posterior chest pain. Nonetheless, it is still better than it was prior to her drainage. She was able to sit up yesterday and I asked them to walk her today. She is able to stand for chest x-ray. Her vital signs show a maximum temperature (t-max) of 97.2 with a heart rate that ranges between 82 and 79 with a regular rate and rhythm, respiratory rate of 18 to 17 without the use of accessory muscles, who is 92% saturated on room air, and whose blood pressure is ranging between 125/58 to 135/64. Her intake and output for the past 24 hours has been recorded as 2220 in and 600 out for a positivity of 1620 mL. She weighs 52.7 kg compared to 53 kg yesterday. PHYSICAL EXAMINATION: LUNGS: She still has inspiratory crackles and rhonchi in the right lower hemithorax. Percussion notes are full to the diaphragm. CARDIAC EXAM: Without murmurs, clicks, gallops or rubs. I cannot feel her point of maximum impulse (PMI). S1, S2 are normal. ABDOMEN: Soft, nontender. Bowel sounds positive; however, she does have some right upper quadrant tenderness to deep palpation. EXTREMITIES: Show no pretibial edema. No calf tenderness. No differential swelling of the upper extremities. SKIN: Warm, dry and perfused without cyanosis or mottling, including that of the nail beds and knees. NECK: Supple. There is no jugular venous distention. No subcutaneous emphysema. Trachea is midline. MOUTH: Shows her mucous membranes to be pink and moist. Lips and commissures without lesions. There is no thrush. EYES: Show her pupils to be equal and reactive. Extraocular motion intact. Sclerae anicteric. NEUROLOGIC: Shows II through XII intact with gross motor and gross sensation intact. Gait is not tested. PSYCHIATRIC: Shows her to be awake and alert, oriented times three with appropriate mood and affect and conversational. Her white count today is 6.7 with a hemoglobin and hematocrit of 11.4 and 33.8 and a platelet count of 129 and stable. Chemistries show potassium 3.4 with the remainder of electrolytes normal. BUN and creatinine of 25 and 1.11. Glucose is 100 with a calcium of 8.2 and a corresponding albumin of 2.3. Final pathology is still pending. I will go up to pathology today to look at the slides. Fluid analysis yesterday shows this to be highly suspicious for malignancy. Her chest x-ray today shows her lung fully expanded to the chest wall. There is some minor reaccumulation of fluid on the right side. IMPRESSION: 1. Stage IV advanced small cell carcinoma. 2. Pleural effusion, no doubt malignant. 3. Hypertension. 4. Hyperlipidemia. 5. Peripheral vascular disease manifested by prior aortic aneurysm, which has been prepared intravascularly. 6. Excruciating pain in the right hemithorax, improved. 7. Stage III renal disease. 8. Hyperlipidemia. 9. Restless leg syndrome. 10. Gastroesophageal reflux disease (GERD). PLAN AND DISCUSSION: Dr. Euceda has just seen her just prior to my coming. She has decided that she does not wish to pursue chemotherapy and she and I have again talked about hospice services and comfort care. She is quite open and amenable to that and I will ask Dr. Garg to order a hospice consultation. If she does have hospice, hospice can do the drainage. I suspect that it is going to be probably every week or at least when she becomes symptomatic.
[2016-10-22] MEDS: ATORVASTATIN 20 MG TAB PO SCH (20:02)
[2016-10-22] MEDS: **NOTE PATIENT COMMENT** MISC XX SCH (20:04)
[2016-10-23] MEDS: SLF 3 ML SYR IV SCH ×3 (05:48→21:13)
[2016-10-23] MEDS: GABAPENTIN 100 MG CAP PO SCH ×2 (09:00→21:11)
[2016-10-23] MEDS: HYDROCHLOROthiazide 6.25MG PER 1/4TAB PO SCH (09:00)
[2016-10-23] MEDS: **hydrALAZINE HCL** 25 MG TAB PO SCH (09:00)
[2016-10-23] MEDS: ENOXAPARIN 30 MG/0.3 ML SYR (J1650) SC SCH (09:00)
[2016-10-23] MEDS: CARVedilol 3.125 MG TAB PO SCH ×2 (09:00→21:12)
[2016-10-23] MEDS: MULTIVITAMINS/MINERALS THERAP 1 TAB PO SCH (09:00)
[2016-10-23] MEDS: amLODIPine 10 MG TAB PO SCH (09:00)
[2016-10-23] MEDS: ASPIRIN 81 MG ENTERIC TAB PO SCH (09:00)
[2016-10-23] MEDS: PERCOCET 5MG/325MG TAB PO SCH ×2 (09:12→21:12)
[2016-10-23] MEDS: LIDOCAINE 5% (LIDODERM) PATCH TD SCH (09:12)
[2016-10-23] MEDS: PANTOPRAZOLE 20 MG TAB PO SCH (09:12)
--- NOTE | 2016-10-23 14:33 | IPN ---
DATE: 10/22/2016 The patient denies any shortness of breath, chest pain, pressure or tightness. She still complains of rib pain and epigastric pain when she eats and tries to eat small amounts. She is currently comfort measures only, DO NOT RESUSCITATE, DO NOT INTUBATE. States that the pain is well controlled currently on oral Percocet, as well as intravenous morphine for breakthrough pain. The patient has not received any intravenous morphine for the past 24 to 36 hours. VITAL SIGNS: Temperature 97.4, pulse 81, respiratory rate 18, blood pressure 127/60. HEENT: Anicteric sclerae. No jaundice. No respiratory distress. No cyanosis. No use of respiratory accessory muscles. Able to speak in full sentences. LUNGS: Diminished. Fine crackles on the right middle and upper lobe. Clear on the left. PleurX catheter is noted. Trachea is midline. HEART: S1, S2. Sinus rhythm. ABDOMEN: Soft, nontender, nondistended. Positive bowel sounds. EXTREMITIES: No pitting edema. ASSESSMENT AND PLAN: This is a 76-year-old female with a history of small cell lung cancer, status post chemotherapy, presents with rib pain, epigastric pain and found to have pancreatitis secondary to gallbladder sludging and medications with known history of nonfunctional right kidney with chronic kidney disease, hypertension, hypercholesterolemia, initially treated for pancreatitis with IV fluids, developed worsening shortness of breath and was found to have a large hydrothorax requiring emergent thoracentesis. Due to the malignant nature of her pleural effusion, as well as intractable pain, the patient has opted for hospice referral. Her functional status precludes her from receiving further chemotherapy, as she has intractable pain. She is current DO NOT RESUSCITATE, DO NOT INTUBATE, comfort measures only. Pain is adequately controlled with oral Percocet and as needed morphine for breakthrough pain. IMPRESSION: 1. Left hydrothorax from the mediastinum to the left with widening of the intercostal space, resolved, secondary to lung cancer and fluid hydration for pancreatitis. The patient currently has PleurX catheter for comfort. She is not a good candidate for chemotherapy due to poor functional status. Per Dr. Euceda, no plans for chemotherapy. The patient is comfort measures only and hospice has been consulted. Family, the , is agreeable to placement, as he is unable to care for her at home. Patient and family services (PFS) has been consulted. 2. Pancreatitis secondary to gallbladder sludging and medication induced. She is currently tolerating her diet. Comfort measures only and comfort eating. 3. Dehydration. She is currently comfort measures only. 4. Small cell lung cancer right upper lobe, status post chemotherapy. Poor functional capacity. Not a candidate for chemotherapy with malignant pleural effusion. Appropriate for comfort measures only, DO NOT RESUSCITATE, DO NOT INTUBATE and hospice as outpatient. 5. Chronic kidney disease stage III, stable with right nonfunctional kidney. 6. Reflux, chronic. 7. Hypertension, stable. 8. History of coronary artery disease with aortic aneurysm, status post surgical repair.
[2016-10-23] MEDS: PERCOCET 5MG/325MG TAB PO PRN (18:30)
[2016-10-23] MEDS: **NOTE PATIENT COMMENT** MISC XX SCH (21:00)
[2016-10-23] MEDS: ATORVASTATIN 20 MG TAB PO SCH (21:11)
[2016-10-24] MEDS: SLF 3 ML SYR IV SCH ×3 (06:00→20:19)
[2016-10-24] MEDS: CARVedilol 3.125 MG TAB PO SCH ×2 (09:00→20:19)
[2016-10-24] MEDS: **hydrALAZINE HCL** 25 MG TAB PO SCH (09:00)
[2016-10-24] MEDS: amLODIPine 10 MG TAB PO SCH (09:00)
[2016-10-24] MEDS: LIDOCAINE 5% (LIDODERM) PATCH TD SCH (09:22)
[2016-10-24] MEDS: GABAPENTIN 100 MG CAP PO SCH ×2 (09:23→20:17)
[2016-10-24] MEDS: ASPIRIN 81 MG ENTERIC TAB PO SCH (09:23)
[2016-10-24] MEDS: HYDROCHLOROthiazide 6.25MG PER 1/4TAB PO SCH (09:23)
[2016-10-24] MEDS: ENOXAPARIN 30 MG/0.3 ML SYR (J1650) SC SCH (09:23)
[2016-10-24] MEDS: PERCOCET 5MG/325MG TAB PO SCH ×2 (09:24→20:18)
[2016-10-24] MEDS: MULTIVITAMINS/MINERALS THERAP 1 TAB PO SCH (09:25)
[2016-10-24] MEDS: PANTOPRAZOLE 20 MG TAB PO SCH (09:25)
--- NOTE | 2016-10-24 13:21 | IPN ---
DATE: 10/23/2016 The patient is being examined at the bedside. Chart has been reviewed this morning. The patient states that her rest her pain is well controlled on Percocet as needed, IV morphine. Per nursing, the patient has not been using the IV morphine for breakthrough pain. With movement from [id number] or sitting up, the pain is increased. She has no shortness of breath, chest pain, pressure or tightness. Still with some epigastric abdominal pain when she eats and has tried small meals. No fever or chills overnight. VITAL SIGNS: Temperature is 97.4, pulse 85, respiratory rate 18, blood pressure 126/58, 90% on room air. GENERAL: The patient is awake, alert, oriented to person, place and time. She is answering questions appropriately. No use of respiratory accessory muscles. LUNGS: Diminished with fine crackles at the bases. PleurX catheter noted. HEART: S1, S2, sinus rhythm. ABDOMEN: Soft, nontender, nondistended. EXTREMITIES: Have no pitting edema. ASSESSMENT AND PLAN: This is a 76-year-old female, DO NOT RESUSCITATE, DO NOT INTUBATE, history of small-cell lung cancer status post chemotherapy with very poor functional status with no plans for further chemotherapy, currently awaiting hospice, presents to the hospital with rib pain, epigastric pain, found to have pancreatitis secondary to gallbladder sludging and medications with known history of nonfunctional right kidney and hypertension, hypercholesterolemia, was initially treated for pancreatitis with IV fluids, developed worsening shortness of breath and found to have a large hydrothorax requiring emergent thoracentesis and PleurX catheter placement. Due to poor functional status and most likely recurrent episodes of malignant pleural effusion, the patient was open to comfort measures only and hospice. The is the main caregiver unable to care for her at her home and they are open to going to a facility or hospice house. Family meeting to be determined. Patient Family Services (PFS) has been consulted. IMPRESSION: 1. Large hydrothorax on the right producing tension on the right chest, shifting mediastinum into the left, widening of the intercostal space on 10/19/2016 secondary to malignant pleural effusion, status post emergent thoracentesis. PleurX catheter placement, resolved currently. The patient is saturating well at 90% on room air with possible reaccumulation due to findings of increased crackles on auscultation. The patient is comfort measures only. 2. Small-cell lung cancer in the right lung. DO NOT RESUSCITATE, DO NOT INTUBATE. No plans for chemotherapy due to poor functional status. Awaiting placement. 3. Pancreatitis secondary to gallbladder sludging. Medication and is tolerating liquids. 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 DO NOT RESUSCITATE, DO NOT INTUBATE. The patient has been given regular diet, soft, mechanical for comfort eating. Social work has been consulted and hospice has been consulted. 4. Dehydration. Currently, mechanical soft, comfort measures only for comfort eating. The patient is DO NOT RESUSCITATE, DO NOT INTUBATE.
[2016-10-24] MEDS: PERCOCET 5MG/325MG TAB PO PRN (17:41)
[2016-10-24] MEDS: ATORVASTATIN 20 MG TAB PO SCH (20:18)
[2016-10-24] MEDS: **NOTE PATIENT COMMENT** MISC XX SCH (20:19)
--- NOTE | 2016-10-25 03:34 | IPN ---
DATE OF SERVICE: 10/24/2016 This morning patient is seen and examined. She complains of pain at the thoracentesis site with ambulation and with sitting up to eat. She denies any shortness of breath, nausea or vomiting. Tolerating her diet well. She has been eating small meals. Without any fever or chills. Awaiting hospice meeting with the family and decision for snf facility (SNF) placement versus hospice house. Vital signs: Temperature 97.4, pulse 84, respiratory rate 18, blood pressure 145/66, 90% on room air. Anicteric sclerae. No jaundice. No respiratory distress. No cyanosis. No use of respiratory accessory muscles. Able to speak in full sentences. Lungs are diminished. Crackles on the right middle and upper lobe. Clear on the left. PleurX catheter. Trachea is midline. Heart S1, S2, sinus. Abdomen soft, slightly tender epigastric region right upper quadrant. No rebound, guarding. Positive bowel sounds. Extremities no edema. ASSESSMENT AND PLAN: This is a 76-year-old with a history of small cell cancer (CA) with rib pain, epigastric pain, found to have pancreatitis secondary to gallbladder sludging and medications with known history of nonfunctional right kidney and chronic kidney disease, hypertension, hypercholesterolemia, treated for pancreatitis with intravenous (IV) fluids, developed worsening shortness of breath and was found to have a large hydrothorax requiring emergent thoracentesis. Due to intractable pain, poor functional status, the patient is not a candidate for chemotherapy. Therefore, has opted for comfort measures only and hospice, is currently DO NOT RESUSCITATE/DO NOT INTUBATE. IMPRESSION: 1. Left hydrothorax on the right shifting the mediastinum to the left, widening of the intercostal space, secondary to right lung CA, small cell. Patient has a PleurX catheter for comfort. Not a good candidate for chemotherapy due to poor functional status. Dr. Euceda had seen the patient in consult. She is currently comfort measures only and hospice has been consulted, as well as patient and family services (PFS). May be discharged at any time. As needed pain medications. 2. Pancreatitis secondary to gallbladder sludging, medication induced. Tolerating her diet with small meals. Comfort measures only and comfort eating. 3. Dehydration. Currently comfort measures only. 4. Small cell lung CA right upper lobe. DO NOT RESUSCITATE/DO NOT INTUBATE, not a candidate for chemotherapy due to poor functional status. 5. Chronic kidney disease stage III, stable, right nonfunctional kidney. 6. Reflux, chronic. 7. Hypertension, stable. 8. History of coronary artery disease (CAD) with aortic aneurysm, status post surgical repair, stable. Patient may be discharged with hospice at any point. MTDD
[2016-10-25] MEDS: SLF 3 ML SYR IV SCH ×3 (05:25→21:25)
[2016-10-25] MEDS: **hydrALAZINE HCL** 25 MG TAB PO SCH (09:00)
[2016-10-25] MEDS: amLODIPine 10 MG TAB PO SCH (09:00)
[2016-10-25] MEDS: MULTIVITAMINS/MINERALS THERAP 1 TAB PO SCH (09:22)
[2016-10-25] MEDS: GABAPENTIN 100 MG CAP PO SCH ×2 (09:22→21:23)
[2016-10-25] MEDS: PERCOCET 5MG/325MG TAB PO SCH ×2 (09:23→21:24)
[2016-10-25] MEDS: CARVedilol 3.125 MG TAB PO SCH ×2 (09:23→21:25)
[2016-10-25] MEDS: PANTOPRAZOLE 20 MG TAB PO SCH (09:23)
[2016-10-25] MEDS: ASPIRIN 81 MG ENTERIC TAB PO SCH (09:23)
[2016-10-25] MEDS: HYDROCHLOROthiazide 6.25MG PER 1/4TAB PO SCH (09:23)
[2016-10-25] MEDS: LIDOCAINE 5% (LIDODERM) PATCH TD SCH (09:24)
--- NOTE | 2016-10-25 11:13 | IPN ---
DATE: 10/25/2016 SUBJECTIVE: Patient seen and examined today. Patient is still complaining about significant pain at the right lateral inferior rib and right lateral abdominal and posterior back. Pain medication has been helping her. Today, she will have a meeting with a hospice senior sales representative and the patient's will also be present for the meeting and they will decide for hospice facility placement. No overnight events are reported. OBJECTIVE: Vital signs: Pulse is 81, respiration 18, blood pressure is 129/59. General: Mild to moderate distress secondary to the bone pain. Alert and oriented times three. HEENT: Normocephalic, atraumatic. Extraocular motor grossly intact. Lung: Diminished breath sound. Positive crackles in right side. Heart: Positive S1, S2. Regular rate. Abdomen: Soft. Mild tender to right lateral abdomen. No rebound. No guarding. Bowel sounds present. Extremity: No edema. No sign of cyanosis. ASSESSMENT AND PLAN: 1. 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 Currently, patient is DO NOT RESUSCITATE, DO NOT INTUBATE. Patient will have a meeting with a hospice senior sales representative. Currently, we are looking for hospice facility placement. Patient has Percocet and morphine for the pain. Pain is relatively controlled. We will not adjust the pain medication regimen at this moment. 2. Pancreatitis secondary to gallbladder sludging and medication induced. Patient tolerate a small diet. 3. Right hydrothorax. Patient has a PleurX catheter for comfort. Patient is COMFORT MEASURES ONLY. 4. Gastroesophageal reflux disease, stable. 5. Hypertension, stable. 6. History of coronary artery disease with aortic aneurysm status post surgical repair, stable. 7. Deep venous thrombosis (DVT) prophylaxis. Patient is on Lovenox. DISPOSITION: Patient will have a discussion with hospice facility and patient's will also present for the meeting today. They are interested for the hospice house. Patient will be discharged once the room assignment is confirmed. ROSA
--- NOTE | 2016-10-25 13:09 | CR ---
DATE OF SERVICE: 10/23/2015 REFERRING PHYSICIAN: Dr. Garg. REASON FOR CONSULTATION: Small cell carcinoma in the right upper lobe, likely extensive stage. HISTORY OF PRESENT ILLNESS: Flory Womack is a 76-year-old female who noted progressive shortness of breath and dyspnea on exertion. CT scan of the chest in August 2016 noted right upper lobe mass 1.7 cm and also mediastinal lymphadenopathy and pretracheal enlarged lymph node measuring 4 cm. There are also left mediastinal lymph nodes as well and a predominately solid 5.3 cm mass which is pleural based in the right upper lobe. Followup included biopsy of the right upper lobe mass on 09/26/2016 which confirmed small cell carcinoma. I have seen her in clinic and in spite of staging studies, I ordered MRI of the brain which was done on 10/10/2016 and it was unremarkable for malignancy. She did complain of right flank pain and she was seen by Dr. Sweet who ordered a bone scan as well on 10/01/2016 but did not reveal as scintigraphic evidence of skeletal metastasis. She was suppose to have a PET scan done one week ago, however, she ended up being admitted on 10/15/2016 with right low back pain and right shoulder pain. She was admitted for pain control. I was asked to see this patient to discuss our goals of care giving her new diagnosis. PAST MEDICAL HISTORY: Chronic kidney disease stage IV. Gastroesophageal reflux disease (GERD). Hypertension. Coronary artery disease. Aortic aneurysm status post surgical repair. Hyperlipidemia. Restless leg syndrome. PAST SURGICAL HISTORY: Aortic aneurysm repair. Breast surgery for mastitis. Left arm surgery following trauma. Dilation and curettage (D and C). HOME MEDICATIONS INCLUDE: - amlodipine - aspirin - atorvastatin - carvedilol - Nexium - gabapentin - hydralazine - hydrochlorothiazide - multivitamins ALLERGIES: No known drug allergies. SOCIAL HISTORY: She has significant history of tobacco use greater than 30 pack year history. Occasional alcohol. She is . She lives with her . She is retired. FAMILY HISTORY: No history of malignancy in the family. PHYSICAL EXAMINATION: Vital signs: Blood pressure 127/60, pulse 81. ECOG of 2. She is lying in bed. She in comfortable. HEENT: No pallor, anicteric sclerae. Moist mucous membranes. Oral pharynx is clear. Heart: Regular rate and rhythm. Normal S1, S2. Lungs: Decreased breath sounds at the right base. Abdomen: Soft, nontender, no hepatosplenomegaly or masses. Extremities: No edema. Lab studies as above. IMPRESSION AND RECOMMENDATION: 76-year-old female with small cell carcinoma complete staging pending. She was admitted for right flank pain and was noted to have moderate right pleural effusion for which she underwent PleurX catheter placement by Dr. Castorena. Her pain has slightly improved. I discussed with her again her goals of care. She has not been staged completely, however, I discussed her options for treatment which includes hospice versus chemotherapy with carboplatin/etoposide. She knows it is an incurable malignancy although treatable. She is currently considering hospice which I also think it is appropriate in this circumstance giving that this is an incurable malignancy. She will followup after she is discharged from the hospital and after she decides on the plan of care. Both options were explained to the patient in detail and all her questions were answered. ROSA
[2016-10-25] MEDS: PERCOCET 5MG/325MG TAB PO PRN (18:37)
[2016-10-25] MEDS: ATORVASTATIN 20 MG TAB PO SCH (21:24)
[2016-10-25] MEDS: **NOTE PATIENT COMMENT** MISC XX SCH (21:25)
[2016-10-25 22:00] VITALS: BP 115/58
[2016-10-26] MEDS: SLF 3 ML SYR IV SCH ×4 (05:42→22:22)
[2016-10-26] MEDS: ONDANSETRON 4 MG ORAL DISINTEGRATING TAB (S0181) SL PRN ×2 (06:39→20:31)
[2016-10-26] MEDS: HYDROCHLOROthiazide 6.25MG PER 1/4TAB PO SCH (08:21)
[2016-10-26] MEDS: ASPIRIN 81 MG ENTERIC TAB PO SCH (08:21)
[2016-10-26] MEDS: GABAPENTIN 100 MG CAP PO SCH ×2 (08:21→20:32)
[2016-10-26] MEDS: PANTOPRAZOLE 20 MG TAB PO SCH (08:22)
[2016-10-26] MEDS: PERCOCET 5MG/325MG TAB PO SCH ×2 (08:22→20:38)
[2016-10-26] MEDS: MULTIVITAMINS/MINERALS THERAP 1 TAB PO SCH (08:22)
[2016-10-26] MEDS: **hydrALAZINE HCL** 25 MG TAB PO SCH (08:23)
[2016-10-26] MEDS: amLODIPine 10 MG TAB PO SCH (08:23)
[2016-10-26] MEDS: CARVedilol 3.125 MG TAB PO SCH ×2 (08:23→20:32)
[2016-10-26] MEDS: LIDOCAINE 5% (LIDODERM) PATCH TD SCH (08:24)
[2016-10-26] MEDS: PERCOCET 5MG/325MG TAB PO PRN ×2 (12:26→18:23)
--- NOTE | 2016-10-26 12:50 | IPN ---
DATE: 10/26/2016 SUBJECTIVE: Patient seen today. Patient is experiencing some pain at the right side of the body, especially where the patient had procedures. Percocet has been helping her control the pain and it can put into sleep more easily. No overnight events reported. OBJECTIVE: Vital signs: Pulse is 79, respiration rate 18, blood pressure is 115/58. Does not require oxygen supplement. General: Mild to moderate distress secondary to continuous pain. Patient is alert, awake and oriented. HEENT: Normocephalic, atraumatic. Extraocular motor grossly intact. Cardiovascular: Positive S1, S2. Regular rate. Lungs: Decreased breath sounds. No wheezes appreciated. Crackles at right side. Abdomen: Soft. Nontender. Nondistended. Bowel sounds present. There is a dressing covering the right mid upper abdomen, no acute drainage noted. No rebound. No guarding. Musculoskeletal: There is s surgical site at the right lower rib. No active bleeding. No discharge noted. The wound site is covered with a scab and fibrous tissue. ASSESSMENT AND PLAN: 1. 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 The patient is DO NOT RESUSCITATE, DO NOT INTUBATE. The patient has a meeting with hospice yesterday and there is another meeting that will occur today. Currently, they are planning the details for hospice facility placement. Currently the patient is on Percocet and morphine. The pain is relatively controlled. 2. Pancreatitis secondary to gallbladder sludging and medication induced. Patient tolerates a small diet. 3. Right hydrothorax. Patient had a PleurX catheter. Patient is on COMFORT MEASURES ONLY. 4. Gastroesophageal reflux disease, stable. 5. Hypertension, stable. 6. History of coronary artery disease with aortic aneurysm, status post surgical repair. 7. Deep venous thrombosis (DVT) prophylaxis. Patient is on Lovenox.
[2016-10-26 20:32] VITALS: BP 140/60
[2016-10-26] MEDS: ATORVASTATIN 20 MG TAB PO SCH (20:32)
[2016-10-26] MEDS: **NOTE PATIENT COMMENT** MISC XX SCH (20:35)
[2016-10-27] MEDS: PERCOCET 5MG/325MG TAB PO PRN ×2 (01:27→12:03)
[2016-10-27] MEDS: amLODIPine 10 MG TAB PO SCH (08:27)
[2016-10-27] MEDS: **hydrALAZINE HCL** 25 MG TAB PO SCH (08:27)
[2016-10-27] MEDS: HYDROCHLOROthiazide 6.25MG PER 1/4TAB PO SCH (08:28)
[2016-10-27] MEDS: LIDOCAINE 5% (LIDODERM) PATCH TD SCH (08:28)
[2016-10-27] MEDS: MULTIVITAMINS/MINERALS THERAP 1 TAB PO SCH (08:29)
[2016-10-27] MEDS: GABAPENTIN 100 MG CAP PO SCH (08:29)
[2016-10-27] MEDS: PANTOPRAZOLE 20 MG TAB PO SCH (08:29)
[2016-10-27] MEDS: CARVedilol 3.125 MG TAB PO SCH (08:29)
[2016-10-27] MEDS: ASPIRIN 81 MG ENTERIC TAB PO SCH (08:29)
[2016-10-27] MEDS: PERCOCET 5MG/325MG TAB PO SCH ×2 (08:30→20:42)
[2016-10-27] MEDS: SLF 3 ML SYR IV SCH (11:33)
[2016-10-27] MEDS: MORPHINE 10MG/0.5ML ORAL CONCENTRATE SOLUTION U/D SL PRN (13:25)
--- NOTE | 2016-10-27 15:02 | REP ---
Portable chest x-ray: Upright PA view. History: Right-sided chest pain. Comparison study: October 22, 2016. Findings: There has been progressive opacification of the right hemithorax. A small quantity of residual aerated lung is noted on the right. There is evidence of collapse and consolidation in the right upper lobe with some pleural thickening and/or fluid. Left lung is unremarkable and unchanged. The previously noted that PleurX catheter is again seen entering the right base although its terminus cannot be traced on the current radiograph. Impression: Findings consistent with increasing effusion now near complete opacification of the right hemithorax. The right PleurX catheter again seen. Signed by Adryan Alexis MD 10/27/2016 05:38 P
--- NOTE | 2016-10-27 15:06 | IPN ---
DATE: 10/27/2016 SUBJECTIVE: The patient is seen and examined in the room today. The patient complains about the pain at the right lateral chest where the patient has a PleurX catheter placed. The patient has been very reluctant to change position because she states that she has to lie a certain way in order to decrease the discomfort due to the prolonged bed rest without changing position. The patient started to develop a pressure ulcer wound, stage 1. PHYSICAL EXAMINATION: GENERAL: Moderate distress secondary to the pain. The patient is alert and oriented. HEENT: Normocephalic, atraumatic. Extraocular motors grossly intact. CARDIOVASCULAR: Positive S1, S2. Regular rate. LUNGS: Decreased breath sounds. No wheezes appreciated. Crackles at the right side. ABDOMEN: Soft, nontender, nondistended. Bowel sounds present. There is a dressing covering the right mid upper abdomen. Dressing is clean. No guarding. MUSCULOSKELETAL: Surgical site at the right lower rib. There is a wound site covered with scab and fibrous tissue. No lower extremity edema. No sign of cyanosis. ASSESSMENT AND PLAN: 1. 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 The patient is DO NOT RESUSCITATE, DO NOT INTUBATE. There is a discussion with the patient and the patient is interested in pursuing comfort measures only; however, no Medical Orders for Life Sustaining Treatment (MOLST) form is updated. Currently, the patient is unable to provide signature. We will discuss the situation with the and we will update the patient's MOLST form. The patient will continue on pain medications for the patient's severe pain related to her cancer. The patient is on Percocet and morphine. 2. Pancreatitis secondary to gallbladder sludging and medication induced. 3. Right hydrothorax. The patient has a PleurX catheter, which initially was placed for comfort. Currently, the patient is experiencing some pain from the PleurX catheter site. The patient also needs drainage from the PleurX catheter site. We will continue Dr. Castorena to examine the PleurX catheter. 4. Gastroesophageal reflux disease (GERD), stable. 5. Hypertension. 6. History of coronary artery disease, status post aortic aneurysm, status post surgical removal. 7. Deep vein thrombosis (DVT) prophylaxis. The patient has Lovenox.
[2016-10-27] MEDS: **NOTE PATIENT COMMENT** MISC XX SCH (20:42)
[2016-10-28] MEDS: PERCOCET 5MG/325MG TAB PO PRN ×3 (05:50→17:38)
[2016-10-28] MEDS: PERCOCET 5MG/325MG TAB PO SCH ×2 (08:51→20:35)
[2016-10-28] MEDS: LIDOCAINE 5% (LIDODERM) PATCH TD SCH (08:52)
[2016-10-28] MEDS: MIRALAX *UNIT DOSE* 17GM PACKET PO PRN (08:52)
[2016-10-28] MEDS: SENOKOT S TAB PO PRN (08:52)
[2016-10-28] MEDS: MOM 30ML SUSPENSION UDC PO PRN (08:52)
[2016-10-28] MEDS: HYDROCHLOROthiazide 6.25MG PER 1/4TAB PO SCH (10:33)
--- NOTE | 2016-10-28 15:14 | IPN ---
DATE: 10/28/2016 SUBJECTIVE: Patient seen and examined in the room today. Yesterday patient had fluid drainage through the Pleurx catheter by Dr. Robert Castorena. Patient noticed a significant relief of chest pain. Patient stated she is able to sit up at the bedside, and patient's pain level has been persistently lower. No overnight events are reported. ASSESSMENT AND PLAN: 1. Small-cell lung cancer of the right upper lobe. I have updated patient's medical order for life-sustaining treatment (MOLST) form with patient's yesterday while patient was not able to provide consent. This morning discussed with the patient. The patient also in agreement with comfort measures only. Currently patient is in the process of applying for hospice facility placement. Pain is controlled with Percocet. Patient does have sublingual morphine as needed. 2. Right hydrothorax. Stat chest x-ray was performed. Patient showed almost complete opacity of the right hemithorax. Patient had drainage through the Pleurx catheter. Dr. Castorena recommends Pleurx fluid drainage every 2 days. 3. Pancreatitis secondary to gallbladder sludging and medication induced. 4. Gastroesophageal reflux disease, stable. 5. Hypertension. 6. History of coronary artery disease status post aneurysm, status post surgical removal. 7. Deep vein thrombosis (DVT) prophylaxis, on Lovenox. MTDD
[2016-10-28] MEDS: ONDANSETRON 4 MG ORAL DISINTEGRATING TAB (S0181) SL PRN (17:39)
[2016-10-28] MEDS: **NOTE PATIENT COMMENT** MISC XX SCH (20:35)
[2016-10-29] MEDS: PERCOCET 5MG/325MG TAB PO PRN (05:51)
[2016-10-29] MEDS: HYDROCHLOROthiazide 6.25MG PER 1/4TAB PO SCH (09:37)
[2016-10-29] MEDS: PERCOCET 5MG/325MG TAB PO SCH ×2 (09:38→20:20)
[2016-10-29] MEDS: LIDOCAINE 5% (LIDODERM) PATCH TD SCH (09:38)
--- NOTE | 2016-10-29 14:30 | IPN ---
DATE: 10/29/2016 SUBJECTIVE: Patient is seen today. Patient continues to complain about her bone pain. Today we attempted drainage through the PleurX catheter. Patient did not have any significant output and patient denies any difficulty breathing and patient tolerated the drainage well. ASSESSMENT AND PLAN: 1. Small cell lung cancer right upper lobe. Patient is comfort measures only. Currently patient is going through hospice facility application process. 2. Right-sided hydrothorax. Patient had drainage through the PleurX catheter done on 10/27/2016, total of 1.6 liters was removed, and per Dr. Castorena's recommendation, will attempt PleurX drainage every 2 days. It was performed today, 10/29/2016, and minimal fluid was removed. 3. Pancreatitis, secondary to gallbladder sludging and medication induced. 4. Gastroesophageal reflux disease. 5. Hypertension. 6. History of coronary artery disease status post surgical removed. 7. Deep venous thrombosis (DVT) prophylaxis on Lovenox. MTDD
[2016-10-29] MEDS: MORPHINE 10MG/0.5ML ORAL CONCENTRATE SOLUTION U/D SL PRN (17:23)
[2016-10-29] MEDS: **NOTE PATIENT COMMENT** MISC XX SCH (21:18)
[2016-10-30] MEDS: PERCOCET 5MG/325MG TAB PO PRN (04:25)
[2016-10-30 05:53] VITALS: BP 121/76
[2016-10-30] MEDS: HYDROCHLOROthiazide 6.25MG PER 1/4TAB PO SCH (08:24)
[2016-10-30] MEDS: LIDOCAINE 5% (LIDODERM) PATCH TD SCH (08:25)
[2016-10-30] MEDS: PERCOCET 5MG/325MG TAB PO SCH ×2 (08:25→20:47)
[2016-10-30] MEDS: MORPHINE 10MG/0.5ML ORAL CONCENTRATE SOLUTION U/D SL PRN ×3 (10:17→17:55)
[2016-10-30] MEDS: LORazepam 1 MG TAB PO PRN ×2 (10:23→17:55)
--- NOTE | 2016-10-30 11:46 | IPN ---
DATE: 10/30/2016 SUBJECTIVE: Patient is seen today in the room. Patient continued not feeling well again, complained about worsening of the pain. Patient seems depressed about the current situation. Patient feels she is deteriorating. She is tired of the discomfort. ASSESSMENT AND PLAN: 1. 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 Patient is COMFORT MEASURES ONLY. It has been very difficult to go through patient's hospice facility application process and currently patient has a PleurX catheter 1.76 liter of fluid was drainage on 10/27/2016. However repeated drainage was attempted on 10/29/2016, there was no significant fluid removed. We will attempt again on 10/31/2016. 2. Right-sided hydrothorax. We will attempt the PleurX drainage tomorrow. 3. Pancreatitis. 4. Gastroesophageal reflux disease. 5. Hypertension. 6. History of coronary artery disease status post surgical removed. 7. Deep venous thrombosis (DVT) prophylaxis on Lovenox.
[2016-10-30] MEDS: **NOTE PATIENT COMMENT** MISC XX SCH (21:00)
[2016-10-31] MEDS: HYDROCHLOROthiazide 6.25MG PER 1/4TAB PO SCH (09:00)
[2016-10-31] MEDS: PERCOCET 5MG/325MG TAB PO SCH (09:00)
--- NOTE | 2016-10-31 09:53 | IPN ---
DATE: 10/31/2016 SUBJECTIVE: Ms. Womack is lying in bed on her left side. Upon evaluation this morning, she keeps her eyes closed during evaluation, but is responsive to my questioning. When asked if she is in any amount of pain, she responds that she is not. When asked if there is anything that I can do for her at this current time, she does not respond. The patient is comfort measures only. The patient should be having pleurodesis catheter drained today. ASSESSMENT AND PLAN: Ms. 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 No further laboratory evaluations have been performed since 10/21/2016. 1. 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 The patient is comfort measures only. 1600 mL was drained from the right lung on 10/27/2016. Pleurodesis catheter should be drained today. The patient is receiving symptomatic treatment for pain with Roxanol, Percocet, morphine, and lidocaine patch. 2. Hypertension. The patient is receiving hydrochlorothiazide. 3. Anxiety. The patient is receiving Ativan. 4. Nausea and vomiting. The patient is receiving scopolamine and Zofran. 5. Constipation. The patient is receiving MiraLAX, milk of magnesia and Senokot. DISPOSITION: Per social work note on 10/27/2016, [place] and [place] [facility] [facility] [place], that is per intake note at [facility]. My preceptor for this patient encounter was Dr. Grimes. The preceptor was physically present in the building during the encounter and was fully available. As needed, all aspects of the patient interview, examination, medical decision making process, and medical care plan development were reviewed and approved by the preceptor. The preceptor is aware and concurs with the plan as stated in the body of this note and will attest to such by his/her cosignature. ROSA
[2016-10-31] MEDS: LIDOCAINE 5% (LIDODERM) PATCH TD SCH (10:10)
[2016-10-31] MEDS: MORPHINE 10MG/0.5ML ORAL CONCENTRATE SOLUTION U/D SL PRN (10:10)
[2016-10-31] MEDS ORDERED: ATRO1OPD PO (10:14)
[2016-10-31] MEDS ORDERED: MORP1SOL PO (10:14)
[2016-10-31] MEDS ORDERED: LORA1TAB12 PO (10:14)
[2016-10-31] MEDS ORDERED: PERCOCET PO (10:19)
--- NOTE | 2016-10-31 16:24 | DSES ---
DATE OF ADMISSION: 10/17/2016 DATE OF DISCHARGE: 10/31/2016 PRIMARY CARE PROVIDER: Dr. Sonia Horner. CONSULTANTS: 1. Cardiothoracic surgeon, Dr. Robert Castorena. 2. Pain management. 3. Oncologist, Dr. Farzana Euceda. PROCEDURES: Pleur-X catheter insertion. COMPLICATIONS: None. ADMISSION/DISCHARGE DIAGNOSES: 1. 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 2. Right-sided hydrothorax. 3. Pancreatitis. 4. Gastroesophageal reflux disease. 5. Hypertension. 6. History of coronary artery disease status post surgical removal. HOSPITALIZATION COURSE: Patient is a 76-year-old female who presented to [facility] on 10/15/2016, for uncontrolled back pain from tumor metastasis. Patient's pain medication was adjusted. Tramadol was discontinued, which is patient's home medication, and that caused significant adverse reactions and patient continued to require escalated dose of pain medication. Later, patient was also found to have acute pancreatitis secondary to the tramadol use and patient was started on nothing by mouth and started on IV support. On 10/18/2016, pain management was consulted to assist with patient's intractable pain. On 10/19/2016, patient was found to have acute worsening of difficulty breathing. Chest xray was performed and patient was found to have a large hydrothorax with shift of mediastinum to the left. Cardiothoracic surgeon Dr. Castorena was consulted and Pleur-X catheter was inserted for palliation. Later, there was more than 1800 mL of pleural fluid drained and patient's breathing improved with the drainage. Later, oncologist Dr. Euceda was consulted and discussed the prognosis with the patient and patient decided not to pursue chemotherapy and patient was placed on comfort measures only status and hospice service was consulted. Later, patient started having worsening of the right lateral chest pain and patient started having worsening breathing and Dr. Castorena came to see the patient and performed another pleural fluid drainage due through the PleurX catheter and 1600 mL of pleural fluid was drained on 10/27/2016. On 10/31/2016, patient finally got the hospice facility room assignment and patient was discharged from [facility]. DISCHARGE MEDICATIONS: - atropine 1-2 drops by mouth every 2 hours as needed for terminal secretions - lorazepam 0.5 tablet by mouth every 4 hours as needed for anxiety and agitation - morphine sulfate 0.25 to 1 mL by mouth every 2 hours as needed - Percocet 5/325 two tablets by mouth twice a day DISCHARGE INSTRUCTIONS: Discharge the patient to hospice facility. Diet as tolerated. Activity as tolerated. DISCHARGE TIME: Greater than 30 minutes. DISCHARGE CONDITION: Poor.
== END 2016-10-31 11:34 | disposition hospice, inpatient (51) | DRG 947 ==
LOC: EDBD 18:03 → M ED 19:22 → M ED INP 10-15 01:23 → M MSPAV 10-15 02:30 → OBSVTOIN 10-17 14:52 → M PCU 10-19 13:39 → M MSPAV 10-21 02:06
PROVIDERS: ADMIT Internal Medicine; ATTEND Internal Medicine
PROC: 0W9930Z Drainage of Right Pleural Cavity with Drainage Device, Percutaneous Approach (ICD-10-PCS; principal; 2016-10-19)
DX: G89.3 Neoplasm related pain (acute) (chronic) (principal); K85.10 Biliary acute pancreatitis without necrosis or infection; C34.11 Malignant neoplasm of upper lobe, right bronchus or lung; J94.8 Other specified pleural conditions; N17.9 Acute kidney failure, unspecified; J91.0 Malignant pleural effusion; N18.4 Chronic kidney disease, stage 4 (severe); E78.00 Pure hypercholesterolemia, unspecified; Z51.5 Encounter for palliative care; Z66 Do not resuscitate; I10 Essential (primary) hypertension; K21.9 Gastro-esophageal reflux disease without esophagitis; L89.221 Pressure ulcer of left hip, stage 1; I12.9 Hypertensive chronic kidney disease with stage 1 through stage 4 chronic kidney disease, or unspecified chronic kidney disease; I25.10 Atherosclerotic heart disease of native coronary artery without angina pectoris; E78.5 Hyperlipidemia, unspecified; G25.81 Restless legs syndrome; E87.6 Hypokalemia; R11.0 Nausea; T40.2X5A Adverse effect of other opioids, initial encounter; R42 Dizziness and giddiness; M54.5 Low back pain; N28.9 Disorder of kidney and ureter, unspecified; E86.0 Dehydration; I73.9 Peripheral vascular disease, unspecified; Z79.899 Other long term (current) drug therapy; Z79.82 Long term (current) use of aspirin; Z87.891 Personal history of nicotine dependence